=== PATIENT | female | born 1955 | race Caucasian/White ===

== ENCOUNTER 2016-04-23 09:34 | Inpatient (IN) | payer OTHER ==
[2016-04-23] VITALS (9 sets, daily range): BP systolic 133–173; BP diastolic 67–99; PULSE 61–88; RESP 16–18; TEMP 96.3–97.3; O2SAT 96–99
[~2016-04-23] VITALS: Ht 160 cm; Wt 58.1 kg
[2016-04-23] MEDS ORDERED: PROPARACAINE HCL 0.5% OPHT SOLN 15 ML BTL EACH EYE ONE (10:00)
[2016-04-23] MEDS ORDERED: SODIUM CHLORIDE 0.9% FLUSH 5 ML FLUSH IVF PRN ×2 (10:45→14:45)
[2016-04-23 11:08] LABS: APTT (PATIENT) 25.9 SEC (24.3-30.1); INTERNATIONAL NORMALIZED RATIO 0.9 RATIO; PROTHROMBIN TIME - PATIENT 10.3 SEC (9.8-11.6)
[2016-04-23 11:09] LABS: AUTOMATED NEUTROPHIL # 8.7 TH/MM3 (1.8-7.7); BASOPHIL % 0.4 % (0.0-2.0); EOSINOPHIL % 0.3 % (0.0-4.0); HEMATOCRIT 46.1 % (35.0-46.0); HEMO FLAGS DIFF FINAL; LYMPHOCYTE # 1.6 TH/MM3 (1.0-4.8); MEAN CELL VOLUME 88.3 FL (80.0-100.0); MEAN CORPUSCULAR HEMOGLOBIN 29.7 PG (27.0-34.0); MEAN CORPUSCULAR HGB CONC 33.6 % (32.0-36.0); MONO % 3.4 % (0.0-8.0); NEUT % 80.9 % (16.0-70.0); PLATELET COUNT 330 TH/MM3 (150-450); RED BLOOD COUNT 5.22 MIL/MM3 (4.00-5.30); RED CELL DISTRIBUTION WIDTH 13.4 % (11.6-17.2); WHITE BLOOD COUNT 10.7 TH/MM3 (4.0-11.0)
--- NOTE | 2016-04-23 11:13 | PD ---
HPI Chief Complaint: Neuro Symptoms/ Deficits Time Seen by Provider: 10:23 Travel History International Travel<30 days: No Contact w/Intl Traveler<30days: No Traveled to known affect area: No History of Present Illness HPI Patient is a 60-year-old female presents emergency department with complaint of left visual changes. Patient states that one week ago she had a 5-8 minute spell of complete vision loss in the left eye. This started suddenly, as though somebody had "turned off the lights" in her left eye. Over the course of 5-8 minutes the vision slowly improved. This was completely painless. In the interim she has been symptom-free until waking up this morning with similar symptoms. Upon waking this morning she only had symptoms for 2-3 minutes before resolution. She denies any history of visual problems other than having to wear glasses. Last ophthalmologic exam was approximate 1 year ago and she denies any known history of retinal disease. She does note a strong family history of cerebrovascular disease and CVA. She has not had any other neurologic symptoms, numbness or tingling, weakness, word finding difficulty, etc. No flashers or floaters. When vision is gone it is completely gone in that eye without any curtain-type affect. PFSH Past Medical History Medical History: Denies Significant Hx Diminished Hearing: No ?: Not Tubal Ligation: Yes Past Surgical History Gynecologic Surgery: Yes Tonsillectomy: Yes Social History Alcohol Use: No Tobacco Use: No Substance Use: No Allergies-Medications (Allergen,Severity, Reaction): Coded Allergies: Codeine (Verified Adverse Reaction, Severe, Nausea/Vomiting, 04/23/16) Reported Meds & Prescriptions Reported Meds & Active Scripts Active No Active Prescriptions or Reported Medications Review of Systems Except as stated in HPI: all other systems reviewed are Neg Physical Exam Narrative GENERAL: Well-appearing female in no acute distress SKIN: Warm and dry. HEAD: Normocephalic. EYES: Pupils equal and round. Extraocular movements intact. No afferent pupillary defect. Intraocular pressure 17 in the right, 16 on the left. Visual acuity 20/25 bilaterally. No scleral icterus. No injection or drainage. Retinal examination is limited due to lack of pupillary dilatation but there is no obvious retinal pathology, wright-red spot, vein occlusion. No visual field loss. ENT: No nasal bleeding or discharge. Mucous membranes pink and moist. NECK: Trachea midline. No JVD. CARDIOVASCULAR: Regular rate and rhythm. No murmur appreciated. RESPIRATORY: No accessory muscle use. Clear to auscultation. Breath sounds equal bilaterally. GASTROINTESTINAL: Abdomen soft, non-tender, nondistended MUSCULOSKELETAL: No obvious deformities. o edema. NEUROLOGICAL: Awake and alert. Answers questions and follows commands appropriately. No obvious cranial nerve deficits. Motor grossly within normal limits. Normal speech. PSYCHIATRIC: Appropriate mood and affect; insight and judgment normal. Data Data Last Documented VS Vital Signs Date Time Temp Pulse Resp B/P Pulse Ox O2 Delivery O2 Flow Rate FiO2 04/23/16 10:57 97 Nasal Cannula 2 04/23/16 09:38 97.3 88 16 173/99 Orders Proparacaine 0.5% Opth Soln (Alcaine 0.5 (04/23/16 10:00) Electrocardiogram (04/23/16 10:36) Prothrombin Time / Inr (Pt) (04/23/16 10:36) Act Partial Throm Time (Ptt) (04/23/16 10:36) Complete Blood Count With Diff (04/23/16 10:36) Basic Metabolic Panel (Bmp) (04/23/16 10:36) Ecg Monitoring (04/23/16 10:36) Iv Access Insert/Monitor (04/23/16 10:36) Oximetry (04/23/16 10:36) Sodium Chloride 0.9% Flush (Ns Flush) (04/23/16 10:45) Mri Brain W/O Contrast (04/23/16 ) Mra Brain W/O Contrast (Cow) (04/23/16 ) Mra Carotids W Contrast (04/23/16 ) Consult Neurology (04/23/16 ) Aspirin (Aspirin) (04/23/16 12:45) Gadodiamide Pf Inj (Omniscan Pf Inj) (04/23/16 12:49) Labs Laboratory Tests Test 04/23/16 10:45 White Blood Count 10.7 TH/MM3 Red Blood Count 5.22 MIL/MM3 Hemoglobin 15.5 GM/DL Hematocrit 46.1 % Mean Corpuscular Volume 88.3 FL Mean Corpuscular Hemoglobin 29.7 PG Mean Corpuscular Hemoglobin 33.6 % Concent Red Cell Distribution Width 13.4 % Platelet Count 330 TH/MM3 Mean Platelet Volume 7.4 FL Neutrophils (%) (Auto) 80.9 % Lymphocytes (%) (Auto) 15.0 % Monocytes (%) (Auto) 3.4 % Eosinophils (%) (Auto) 0.3 % Basophils (%) (Auto) 0.4 % Neutrophils # (Auto) 8.7 TH/MM3 Lymphocytes # (Auto) 1.6 TH/MM3 Monocytes # (Auto) 0.4 TH/MM3 Eosinophils # (Auto) 0.0 TH/MM3 Basophils # (Auto) 0.0 TH/MM3 CBC Comment DIFF FINAL Differential Comment Prothrombin Time 10.3 SEC Prothromb Time International 0.9 RATIO Ratio Activated Partial 25.9 SEC Thromboplast Time Sodium Level 141 MEQ/L Potassium Level 3.9 MEQ/L Chloride Level 107 MEQ/L Carbon Dioxide Level 23.9 MEQ/L Anion Gap 10 MEQ/L Blood Urea Nitrogen 12 MG/DL Creatinine 0.72 MG/DL Estimat Glomerular Filtration 83 ML/MIN Rate Random Glucose 109 MG/DL Calcium Level 9.4 MG/DL [facility] Medical Decision Making Medical Screen Exam Complete: Yes Emergency Medical Condition: Yes Medical Record Reviewed: Yes Differential Diagnosis 60-year-old female with history of strong family history of several vascular disease here with complaint of left ocular problem, painless loss of vision intermittently. Differential includes ocular TIA, CVA, central retinal artery occlusion, central retinal vein occlusion and less likely glaucoma, retinal detachment. Narrative Course Patient placed on monitor, IV established and blood obtained. A twelve-lead EKG shows sinus bradycardia, rate [address] or T-wave abnormalities and normal intervals. CBC, BMP, coags obtained and unremarkable. MRI and MRA of the brain and MRA of the carotids unfortunately showed left occipital lobe infarct that is acute in nature. Chemistry shows a basilar artery proximally otherwise unremarkable. I spoke with Dr. Gage of neurology, recommend admission for further management. Patient was given aspirin. Patient was last seen normal yesterday prior to falling asleep. Certainly outside the window for thrombolytics. Critical Care Narrative Aggregate critical care time was 35 minutes. Time to perform other separately billable procedures was not included in the critical care time. My time did not include minutes spent treating any other patients simultaneously or on activities that did not directly contribute to the patient's treatment. The services I provided to this patient were to treat and/or prevent clinically significant deterioration that could result in: Neurologic decompensation, , disability I provided critical care services requiring my management, as noted below: Chart data review, documentation time, medication orders and management, vital sign assessments/reviewing monitor data, ordering and reviewing lab tests, ordering and interpreting/reviewing x-rays and diagnostic studies, care of the patient and discussion of the patient with the admitting physicians. Diagnosis Primary Impression: CVA (cerebral vascular accident) Additional Impression: Transient visual loss, left eye Admitting Information Admitting Physician Requests: Admit Scripts No Active Prescriptions or Reported Meds Starla Mcknight MD Apr 23, 2016 11:12
[2016-04-23 11:31] LABS: BICARBONATE 23.9 MEQ/L (21.0-32.0); POTASSIUM 3.9 MEQ/L (3.5-5.1)
--- NOTE | 2016-04-23 12:28 | RADRPT ---
EXAM DATE/TIME: 04/23/2016 12:05 [facility] COMPARISON: CT BRAIN W/O CONTRAST, October 25, 2015, 15:18. INDICATIONS : CVA. Vision changes in left eye. MEDICAL HISTORY : None. SURGICAL HISTORY : Tonsillectomy. Tubal ligation. ENCOUNTER: Initial ACUITY: 1 day PAIN SCORE: 0/10 LOCATION: head. Please note a normal MRA of the brain does not entirely exclude the possibility of a small aneurysm, nor the possibility of distal intracranial vessel disease. TECHNIQUE: 3D time of flight MRA was performed. Source images, multiplanar STS MIP, and 3D volume MIP reconstru ctions were reviewed. FINDINGS: There is excellent visualization of the major intracranial arteries out to the second-order branch ve ssels. There is no evidence for aneurysm, vessel truncation or stenosis, and no evidence for vascula r malformation. 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 Hypoplastic A 1 division of the left anterior cerebral artery. CONCLUSION: 1. Fenestration of the basilar artery proximally otherwise unremarkable. Mayo Zeng MD on April 23, 2016 at 12:25 Board Certified Radiologist. This report was verified electronically.
--- NOTE | 2016-04-23 12:40 | RADRPT ---
EXAM DATE/TIME: 04/23/2016 12:05 [facility] COMPARISON: No previous studies available for comparison. INDICATIONS : CVA. Vision changes in left eye. MEDICAL HISTORY : None. SURGICAL HISTORY : Tonsillectomy. Tubal ligation. ENCOUNTER: Initial ACUITY: 1 day PAIN SCORE: 0/10 LOCATION: head. TECHNIQUE: Multiplanar, multisequence MRI of the brain was performed without contrast. FINDINGS: There is restricted diffusion in the left occipital cortex character characteristic of acute infarct. No hemorrhage is seen. There is mild corresponding increased flair signal present. No masses are see n. CONCLUSION: 1. Left occipital infarct. In appearance. Mayo Zeng MD on April 23, 2016 at 12:37 Board Certified Radiologist. This report was verified electronically.
[2016-04-23] MEDS ORDERED: ASPIRIN 325 MG TAB PO ONE (12:45)
[2016-04-23] MEDS ORDERED: GADODIAMIDE PF 287 MG/ML 20 ML VIAL (for RAD MRI) IV ONE (12:49)
--- NOTE | 2016-04-23 13:11 | RADRPT ---
EXAM DATE/TIME: 04/23/2016 12:05 [facility] COMPARISON: MRI BRAIN W/O CONTRAST, April 23, 2016, 12:05. MRA BRAIN W/O CONTRAST, April 23, 2016, 12:05. INDICATIONS : Stenosis. Vision changes in left eye. CONTRAST: 20 cc Omniscan (gadodiamide) IV MEDICAL HISTORY : None. SURGICAL HISTORY : Tonsillectomy. Tubal ligation. ENCOUNTER: Initial ACUITY: 1 day PAIN SCORE: 0/10 LOCATION: neck. Percent stenosis is calculated using the diameter of the stenotic region over the diameter of the nor mal distal internal carotid artery. TECHNIQUE: Bolus infused MRA of the extracranial circulation was performed using a neurovascular coil. Post pro cessing was performed including rotationg subvolume maximum intensity projections of each carotid art juliane, rotating full volume maximum intensity projections of both carotid arteries, sagittal and briseno l sliding thin slab reformations of each carotid artery, and left oblique sliding thin slab reformati on through the aortic arch to include the origin of the arch branch vessels. FINDINGS: AORTIC ARCH: There is a three vessel origin of the great vessels from the aorta. No evidence of ostial narrowing. RIGHT CAROTID: The common carotid artery is intact. The carotid bulb has a normal configuration without ulceration or narrowing. The internal carotid artery lumen is smooth without stenosis. The external carotid ar greg is intact. LEFT CAROTID: The common carotid artery is intact. There is a focal 5.7 mm severe stenosis of the left proximal int ernal carotid artery extending just under 6 mm in cephalocaudal extent. The remainder of the internal carotid artery is well opacified. This is felt to be at least 60% but difficult to measure an accura te stenosis. The external carotid artery is intact. VERTEBRALS: The vertebral arteries have a symmetric diameter. No stenotic lesions are seen. CONCLUSION: Severe left proximal ICA stenosis. Mayo Zeng MD on April 23, 2016 at 13:06 Board Certified Radiologist. This report was verified electronically.
--- NOTE | 2016-04-23 13:36 | EKG ---
Date Performed: 04/23/2016 Time Performed: 10:52:52 PTAGE: 60 years EKG: SINUS BRADYCARDIA Since previous tracing, no significant change noted BORDERLINE ECG PREVIOUS TRACING : 10/25/2015 14.38 DOCTOR: Nirali Menjivar Interpretating Date/Time 04/23/2016 13:32:04
[2016-04-23] MEDS ORDERED: DEXTROSE 50% IN WATER 50 ML VIAL(D50) IV PUSH PRN (14:45)
[2016-04-23] MEDS ORDERED: ENALAPRILAT 1.25 MG/ML VIAL IV PRN (14:45)
[2016-04-23] MEDS ORDERED: GLUCAGON 1 MG/ML VIAL IM/SQ PRN (14:45)
--- NOTE | 2016-04-23 14:54 | HHI.HP ---
[facility] Primary Care Physician No Primary Care Physician Admission Diagnosis L occipital infarct Diagnoses: Chief Complaint: Vission loss in left eye Travel History International Travel<30 Days: No Contact w/Intl Traveler <30 Da: No Traveled to Known Affected Are: No History of Present Illness This is a 60-year-old female without significant past medical history who does not follow up with physicians and presents with left visual changes. The patient states that symptoms started approximately one week ago on [employer] when she had a sudden episode of left-sided vision loss which lasted for approximately 10 minutes and completely resolved by itself. The patient states that she minimized her symptoms and did not seek any help at this time. The patient denies any other symptoms like palpitations, dizziness, arm or leg weakness, sensory deficits. The patient states that she presented today because she woke up with similar symptoms again with complete left eye loss of vision which resolved (3 minutes of waking up. The patient denies any symptoms like chest pain, shortness of breath, dizziness, palpitations, numbness or tingling of extremities, upper and lower extremity weakness. Patient also denies any cough, dysuria, abdominal pain. Review of Systems Other As per history of present illness, other systems reviewed by me and negative Past Family Social History Past Medical History Denies hypertension, diabetes Past Surgical History 1. Tonsillectomy. 2. Tubal ligation Reported Medications Aspirin. Allergies: Coded Allergies: Codeine (Verified Adverse Reaction, Severe, Nausea/Vomiting, 04/23/16) Active Ordered Medications Current Medications Medications (Trade) Dose Ordered Sig/Adrien Route Start Time Stop Time Status Last Admin (NS Flush) 2 ml UNSCH PRN IVF 04/23/16 10:45 Family History Patient has a family history for positive for strokes. Patient states her grandmother had strokes. Social History The patient is a former smoker. She quit 40 years ago. The patient also states that she quit drinking alcohol 3 years ago. The patient denies illicit drug use. The patient is . The patient has a daughter and a son. The patient's daughter lives here in [place] and his son is [place] during his service. Physical Exam Vital Signs Vital Signs Date Time Temp Pulse Resp B/P Pulse Ox O2 Delivery O2 Flow Rate FiO2 04/23/16 13:45 80 18 151/90 97 Nasal Cannula 2 04/23/16 12:57 88 18 160/83 97 Nasal Cannula 2 04/23/16 10:57 97 Nasal Cannula 2 04/23/16 09:38 97.3 88 16 173/99 96 Room Air Physical Exam GENERAL: This is a well-nourished, well-developed patient, in no apparent distress. SKIN: No rashes, ecchymoses or lesions. Cool and dry. HEAD: Atraumatic. Normocephalic. No temporal or scalp tenderness. EYES: Pupils equal round and reactive. Extraocular motions intact. No scleral icterus. No injection or drainage. ENT: Nose without bleeding, purulent drainage or septal hematoma. Throat without erythema, tonsillar hypertrophy or exudate. Uvula midline. Airway patent. NECK: Trachea midline. No JVD or lymphadenopathy. Supple, nontender, no meningeal signs. CARDIOVASCULAR: Regular rate and rhythm without murmurs, gallops, or rubs. RESPIRATORY: Clear to auscultation. Breath sounds equal bilaterally. No wheezes , rales, or rhonchi. GASTROINTESTINAL: Abdomen soft, non-tender, nondistended. No hepato-splenomegaly , or palpable masses. No guarding. MUSCULOSKELETAL: Extremities without clubbing, cyanosis, or edema. No joint tenderness, effusion, or edema noted. No calf tenderness. Negative Homans sign bilaterally. NEUROLOGICAL: Awake and alert. Cranial nerves II through XII intact. Motor and sensory grossly within normal limits. Five out of 5 muscle strength in all muscle groups. Normal speech. Laboratory Laboratory Tests Test 04/23/16 10:45 White Blood Count 10.7 Red Blood Count 5.22 Hemoglobin 15.5 Hematocrit 46.1 Mean Corpuscular Volume 88.3 Mean Corpuscular Hemoglobin 29.7 Mean Corpuscular Hemoglobin 33.6 Concent Red Cell Distribution Width 13.4 Platelet Count 330 Mean Platelet Volume 7.4 Neutrophils (%) (Auto) 80.9 Lymphocytes (%) (Auto) 15.0 Monocytes (%) (Auto) 3.4 Eosinophils (%) (Auto) 0.3 Basophils (%) (Auto) 0.4 Neutrophils # (Auto) 8.7 Lymphocytes # (Auto) 1.6 Monocytes # (Auto) 0.4 Eosinophils # (Auto) 0.0 Basophils # (Auto) 0.0 CBC Comment DIFF FINAL Differential Comment Prothrombin Time 10.3 Prothromb Time International 0.9 Ratio Activated Partial 25.9 Thromboplast Time Sodium Level 141 Potassium Level 3.9 Chloride Level 107 Carbon Dioxide Level 23.9 Anion Gap 10 Blood Urea Nitrogen 12 Creatinine 0.72 Estimat Glomerular Filtration 83 Rate Random Glucose 109 Calcium Level 9.4 Result Diagram: 04/23/16 1045 04/23/16 1045 Imaging Last Impressions Neck Magnetic Resonance Angiography 04/23/16 0000 Signed Impressions: Service Date/Time: Saturday, April 23, 2016 12:05 - CONCLUSION: Severe left proximal ICA stenosis. Mayo Zeng MD Head Magnetic Resonance Angiography 04/23/16 0000 Signed Impressions: Service Date/Time: Saturday, April 23, 2016 12:05 - CONCLUSION: 1. Fenestration of the basilar artery proximally otherwise unremarkable. Mayo Zeng MD Brain MRI 04/23/16 0000 Signed Impressions: Service Date/Time: Saturday, April 23, 2016 12:05 - CONCLUSION: 1. Left occipital infarct. In appearance. Mayo Zeng MD Reviewed by me. EKG shows sinus bradycardia at [address] T changes suggestive of active ischemia. Assessment and Plan Problem List: (1) CVA (cerebral vascular accident) ICD Code: I63.9 Status: Acute (2) Transient visual loss, left eye ICD Code: H53.122 Status: Acute (3) Carotid stenosis ICD Code: I65.29 Status: Acute Assessment and Plan 60-year-old female sent with symptoms of amaurosis fugax. MRI of the brain shows left occipital ischemic infarct. MRA of the neck shows left carotid severe stenosis. MRA of the brain is normal. Admit the patient to the medical floor, continue aspirin, start on statin Consult neurology, case discussed with Dr. Ceron Consult vascular surgery, case discussed with Dr. Morton, will obtain a CTA of the neck The left ICA stenosis does not fully explain the left occipital ischemic CVA. Check 2-D echocardiogram Check hemoglobin A1c and lipid profile Permissive hypertension. PT, ST, heart healthy diet PPI for Gi prophylaxis Heparin SQ for DVT prophylaxis Code Status Full code Discussed Condition With Patient, Dr. Fatima, Dr. Cornelius, Dr. Morton. Physician Certification 2 Midnight Certification Type: Admission for Inpatient Services Order for Inpatient Services The services are ordered in accordance with Medicare regulations or non- Medicare payer requirements, as applicable. In the case of services not specified as inpatient-only, they are appropriately provided as inpatient services in accordance with the 2-midnight benchmark. Estimated LOS (days): 2 days is the estimated time the patient will need to remain in the hospital, assuming treatment plan goals are met and no additional complications. Post-Hospital Plan: Home Problem Qualifiers (1) CVA (cerebral vascular accident): Jeison Parkinson MD Apr 23, 2016 14:54
[2016-04-23] MEDS ORDERED: IOHEXOL 350 MG/ML 10 ML VIAL (for RAD DIAG) IV ONE (15:21)
--- NOTE | 2016-04-23 15:51 | RADRPT ---
EXAM DATE/TIME: 04/23/2016 15:21 [facility] COMPARISON: No previous studies available for comparison. INDICATIONS : Visual changes; possible occipital occlusion. IV CONTRAST: 100 cc Omnipaque 350 (iohexol) IV RADIATION DOSE: 24.94 CTDIvol (mGy) MEDICAL HISTORY : None SURGICAL HISTORY : Tonsillectomy. ENCOUNTER: Initial ACUITY: 1 day PAIN SCALE: 2/10 LOCATION: neck TECHNIQUE: Volumetric scanning was performed using a multirow detector CT scanner. The data was post processed with a variety of visualization algorithms including full-volume maximum intensity projection, multip lanar sliding thin-slab reformation, curved-planar reformation, and surface-rendering techniques. Us ing automated exposure control and adjustment of the mA and/or kV according to patient size, radiatio n dose was kept as low as reasonably achievable to obtain optimal diagnostic quality images. FINDINGS: AORTIC ARCH: There is a three-vessel origin of the great vessels from the aorta. No evidence of ostial narrowing. RIGHT CAROTID: The common carotid artery is intact. The carotid bulb has a normal configuration without ulceration o r narrowing. The internal carotid artery lumen is smooth without stenosis. The external carotid rafael ry is intact. LEFT CAROTID: The left common carotid artery is normal. There is focally dense atherosclerotic calcification of the bulb and proximal internal carotid artery with high-grade stenosis of the ICA over a 12 mm length. T here is fairly good reconstitution of the vessel distally. VERTEBRALS: The vertebral arteries have a symmetric diameter. No stenotic lesions are seen. CONCLUSION: 1. 12 mm long high grade, hemodynamically significant stenosis of the proximal left internal carotid artery. 2. Patent right carotid system. 3. Vertebrals within normal limits. Molina Salinas MD on April 23, 2016 at 15:47 Board Certified Radiologist. This report was verified electronically.
[2016-04-23] MEDS: INSULIN ASPART SUPPLEMENTAL SCALE SQ SCH ×2 (16:00→21:00)
[2016-04-23] MEDS: HEPARIN SODIUM - SQ 10,000 UNITS/ML VIAL SQ SCH (16:19)
--- NOTE | 2016-04-23 19:14 | MB ---
cc: YADIRA BARCLAY MD DATE OF CONSULTATION 04/23/2016 REASON FOR CONSULTATION Sudden loss of vision in the left eye. HISTORY OF PRESENT ILLNESS This is a 60-year-old female without significant past medical history and presents to the emergency room with left eye symptoms. The patient states that she had an episode last week on [employer] when she had sudden loss of visual field while she was driving that lasted approximately 10 minutes and completely resolved by itself and she describes it as "healed from within the center of the eye". She did not seek any medical help at that time. Today the patient states that she had an episode where she also lost vision on her left eye but this was cleared gradually "like a curtain from up going down over a few minutes". She denies any history of high blood pressure, diabetes, any headache, double vision, facial numbness, slurred speech, weakness of an extremity, or loss of consciousness. REVIEW OF SYSTEMS A 12-point review of systems is negative for what is stated in the HPI. PAST MEDICAL HISTORY Denies hypertension, diabetes. Noncontributory. PAST SURGICAL HISTORY 1. Tonsillectomy. 2. Tubal ligation. MEDICATIONS Aspirin. ALLERGIES CODEINE. FAMILY HISTORY Her grandmother had a stroke. SOCIAL HISTORY A former smoker. She quit 40 years ago. She quit drinking alcohol 3 years ago. Denies use of recreational drug. PHYSICAL EXAMINATION GENERAL: Well-nourished, well-developed in no apparent distress. Good historian. HEENT: Atraumatic, normocephalic. Intact vision, intact hearing. NECK: No carotid bruits. Supple. No meningeal signs. CARDIOVASCULAR: Regular rate and rhythm. No murmurs. LUNGS: Clear to auscultation. No wheezes. MUSCULOSKELETAL: The extremities without clubbing or cyanosis. Moves all extremities equally. NEUROLOGICAL: Awake, alert, oriented to time, person and place. Cranial nerves II-XII are intact. Normal visual gautam. Motor system 5/5 bilateral, symmetrical. Sensory system is intact to touch and temperature, bilateral, symmetrical. Reflexes are 2+ bilateral, symmetrical. Plantars are bilaterally downgoing. Intact memory. Intact speech. Intact speech content. Cerebellar functions, [id number], [id number] are intact. LABORATORY DATA White blood cells 10.7, hemoglobin 15.5, MCV 88.3, platelet count 330. INR 0.9. Sodium 141, potassium 3.9, chloride 107, anion gap 10, BUN 12, creatinine 0.72 random glucose 109, calcium 9.4. IMAGING - Brain MRI without contrast revealed a left occipital infarct. 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 - Neck MRA with contrast revealed severe left proximal ICA stenosis. DIAGNOSTIC IMPRESSION 1. Amaurosis fugax / Transient ischemic attack. 2. Left occipital ischemic infarct. 3. Possible etiology of the amaurosis fugax is left ICA symptomatic artery. PLAN 1. Aspirin 325 mg daily. 2. Neurological checks q.4h. 3. Cervical spine CTA. 4. Telemetry. 5. Cardiac echo. 6. DVT prophylaxis. 7. GI prophylaxis. 8. Allow permissive hypertension. Treat for blood pressure greater than 220/110. Thank you for the opportunity to participate in the care of your patient. MD JUSTO Lopes/MIROSLAVA /3:16 PM /6:51 PM JOSSUE
--- NOTE | 2016-04-23 19:29 | RADRPT ---
EXAM DATE/TIME: 04/23/2016 17:37 [facility] COMPARISON: No previous studies available for comparison. INDICATIONS : Transient ischemic attack. MEDICAL HISTORY : Visual disturbance. SURGICAL HISTORY : Tubal ligation. Tonsillectomy. ENCOUNTER: Initial ACUITY: 1 day PAIN SCORE: 0/10 LOCATION: Bilateral neck PEAK SYSTOLIC VELOCITIES (cm/sec): ICA/CCA RATIO: Right: 1.2 Left: 5.9 ICA: Right: 102 Left: 333 CCA: Right: 82 Left: 57 ECA: Right: 69 Left: 75 VERTEBRAL: Right: 53 antegrade Left: 81 antegrade Elevated flow velocities and ICA/CCA ratios have been found to correlate with increased degrees of vessel stenosis, calculated as percentage of diameter relative to a normal segment of distal ICA/CCA FINDINGS: RIGHT CAROTID: There is mild plaque of the bulb and proximal internal carotid artery. LEFT CAROTID: There is bulky plaque of the bulb and proximal internal carotid artery. VERTEBRAL ARTERIES: Antegrade flow is seen in both vertebral arteries. MISCELLANEOUS: None. CONCLUSION: 1. High-grade, hemodynamically significant stenosis of the proximal left internal carotid artery. 2. Mild plaque of the right carotid bifurcation without hemodynamically significant narrowing. Molina Salinas MD on April 23, 2016 at 19:26 Board Certified Radiologist. This report was verified electronically.
[2016-04-23] MEDS: PRAVASTATIN SOD 40 MG TAB PO SCH (21:00)
[2016-04-23] MEDS: SODIUM CHLORIDE 0.9% FLUSH 5 ML FLUSH IVF SCH (21:29)
[2016-04-24 04:00] VITALS: BP 119/76; PULSE 74; RESP 18; TEMP 96.4; O2SAT 98
[2016-04-24] MEDS: INSULIN ASPART SUPPLEMENTAL SCALE SQ SCH ×4 (07:00→20:43)
[2016-04-24 08:00] VITALS: BP 153/91; PULSE 88; RESP 18; TEMP 96.8; O2SAT 98
[2016-04-24 08:10] LABS: HDL CHOLESTEROL 62.4 MG/DL (40.0-60.0)
--- NOTE | 2016-04-24 10:05 | PD.VS.CON ---
History of Present Illness Chief Complaint: Hx of two episodes of left eye total vision loss that resolved within thirty minutes. Apr 15 and Apr 23, 2015. Consult Requested by: Jeison Yeboah History of Present Illness 60 year old female with no known hx of medical illness presented with a hx of left eye visual loss about a week ago that resolved with a showering reappearance of vision. She toke aspirin over the course of the week and since she didn't have insurance failed to see a physician. She then woke up with visual loss on Apr 23 that resolved with a raising of the shades appearance. She denies aphasia, weakness of either side of her body, chest pain or shortness of breath. Occasionally, cramping of calves. Past/Family/Social History Past Medical History Hx of syncopal episode in October of 2015. Past Surgical History tonsillectomy BSO Social History Quit smoking more than 10 years ago. Second hand smoke for 40 years. Denies alcohol or drug abuse. Family History Mother with a hx of CVA Home Medications No Active Prescriptions or Reported Meds Coded Allergies: Codeine (Verified Adverse Reaction, Severe, Nausea/Vomiting, 04/23/16) Review of Systems Eyes: COMPLAINS OF: Vision loss Musculoskeletal: COMPLAINS OF: Joint pain (leg pain left>right) Physical Exam Vitals/I&O Date Time Temp Pulse Resp B/P Pulse Ox O2 Delivery O2 Flow Rate FiO2 04/24/16 04:00 96.4 74 18 119/76 98 04/23/16 22:00 96.3 61 17 143/87 96 04/23/16 19:30 98 04/23/16 19:09 70 16 133/89 97 Room Air 04/23/16 18:34 77 18 159/67 99 Room Air 04/23/16 15:06 76 18 143/93 97 Nasal Cannula 2 04/23/16 13:45 80 18 151/90 97 Nasal Cannula 2 04/23/16 12:57 88 18 160/83 97 Nasal Cannula 2 04/23/16 10:57 97 Nasal Cannula 2 Neuro: Cn2-12 intact. 5/5 motor upper and lower extremity. Neck: left carotid bruit. Heart: no murmurs, regular r/r Lungs: CTA bilaterally Abdomen: soft, no abdominal thrill, pulsatile mass Vascular: palpable radial bilaterally Triphasic bilateral PT and monophasic DP Extremities: warm with less than 2 second cap refill. Laboratory Tests Test 04/23/16 04/24/16 10:45 06:54 White Blood Count 10.7 Red Blood Count 5.22 Hemoglobin 15.5 Hematocrit 46.1 Mean Corpuscular Volume 88.3 Mean Corpuscular Hemoglobin 29.7 Mean Corpuscular Hemoglobin 33.6 Concent Red Cell Distribution Width 13.4 Platelet Count 330 Mean Platelet Volume 7.4 Neutrophils (%) (Auto) 80.9 Lymphocytes (%) (Auto) 15.0 Monocytes (%) (Auto) 3.4 Eosinophils (%) (Auto) 0.3 Basophils (%) (Auto) 0.4 Neutrophils # (Auto) 8.7 Lymphocytes # (Auto) 1.6 Monocytes # (Auto) 0.4 Eosinophils # (Auto) 0.0 Basophils # (Auto) 0.0 CBC Comment DIFF FINAL Differential Comment Prothrombin Time 10.3 Prothromb Time International 0.9 Ratio Activated Partial 25.9 Thromboplast Time Sodium Level 141 Potassium Level 3.9 Chloride Level 107 Carbon Dioxide Level 23.9 Anion Gap 10 Blood Urea Nitrogen 12 Creatinine 0.72 Estimat Glomerular Filtration 83 Rate Random Glucose 109 Calcium Level 9.4 Triglycerides Level 119 Cholesterol Level 269 LDL Cholesterol 183 HDL Cholesterol 62.4 Cholesterol/HDL Ratio 4.31 Last 48 hours Impressions Neck Magnetic Resonance Angiography 04/23/16 0000 Signed Impressions: Service Date/Time: Saturday, April 23, 2016 12:05 - CONCLUSION: Severe left proximal ICA stenosis. Mayo Zeng MD Neck CTA 04/23/16 0000 Signed Impressions: Service Date/Time: Saturday, April 23, 2016 15:21 - CONCLUSION: 1. 12 mm long high grade, hemodynamically significant stenosis of the proximal left internal carotid artery. 2. Patent right carotid system. 3. Vertebrals within normal limits. Molina Salinas MD Head Magnetic Resonance Angiography 04/23/16 0000 Signed Impressions: Service Date/Time: Saturday, April 23, 2016 12:05 - CONCLUSION: 1. Fenestration of the basilar artery proximally otherwise unremarkable. Mayo Zeng MD Carotid Artery Ultrasound 04/23/16 0000 Signed Impressions: Service Date/Time: Saturday, April 23, 2016 17:37 - CONCLUSION: 1. High-grade , hemodynamically significant stenosis of the proximal left internal carotid artery. 2. Mild plaque of the right carotid bifurcation without hemodynamically significant narrowing. Molina Salinas MD Brain MRI 04/23/16 0000 Signed Impressions: Service Date/Time: Saturday, April 23, 2016 12:05 - CONCLUSION: 1. Left occipital infarct. In appearance. Mayo Zeng MD Assessment and Plan Assessment: (1) Transient visual loss, left eye Status: Resolved (2) CVA (cerebral vascular accident) Status: Acute (3) Carotid stenosis Status: Chronic Plan This is a 60 year old female who presented with a left sided posterior circulation CVA. She also has had a hx of left sided visual changes that could be interpreted as possible TIAs that would correlate with her left sided high grade carotid stenosis by CTA, Duplex US and MRA. The location of the posterior circulation stroke and left sided carotid stenosis don't correlate. Since she has had an acute left sided acute CVA she is going to be worked up for a source of this and will managed medically with antiplatelet and a statin for her left ICA stenosis. I will allow for 1-2 weeks before proceeding with surgery (left carotid endarterectomy) unless her clinical condition changes ie. Crescendo TIAs to allow for some resolution of her posterior circulation CVA. In the interim she will have a repeat MRI of the brain and telemetry that I discussed with Dr. Gage, her neurologist. I discussed this plan the patient with the family at the bedside (daughter, sister and arjfzey-me-map). I will continue to follow her closely. Panchito Morton DO FACS [employer] Vascular [employer] /[place] Problem Qualifiers (1) CVA (cerebral vascular accident): (2) Carotid stenosis: Qualified Code: I65.22 - Stenosis of left carotid artery Panchito Morton DO Apr 24, 2016 10:05
[2016-04-24] MEDS: ASPIRIN 325 MG TAB PO SCH (10:13)
[2016-04-24] MEDS: SODIUM CHLORIDE 0.9% FLUSH 5 ML FLUSH IVF SCH ×2 (10:13→20:43)
[2016-04-24] MEDS: HEPARIN SODIUM - SQ 10,000 UNITS/ML VIAL SQ SCH ×3 (10:14→17:21)
[2016-04-24 12:00] VITALS: BP 134/79; PULSE 80; RESP 18; TEMP 96; O2SAT 97
--- NOTE | 2016-04-24 14:05 | HHI.PR ---
Subjective Remarks Patient denies any further left eye vision loss denies dizziness denies neurological complains like headache, double or blurry vision as per RN patient refused insulin coverage when blood sugar reached the 170's Objective Vitals Vital Signs Date Time Temp Pulse Resp B/P Pulse Ox O2 Delivery O2 Flow Rate FiO2 04/24/16 08:00 96.8 88 18 153/91 98 04/24/16 04:00 96.4 74 18 119/76 98 04/23/16 22:00 96.3 61 17 143/87 96 04/23/16 19:30 98 04/23/16 19:09 70 16 133/89 97 Room Air 04/23/16 18:34 77 18 159/67 99 Room Air 04/23/16 15:06 76 18 143/93 97 Nasal Cannula 2 I/O 04/23/16 04/23/16 04/23/16 04/24/16 04/24/16 04/24/16 07:00 15:00 23:00 07:00 15:00 23:00 Intake Total 120 ml 240 ml Balance 120 ml 240 ml Intake Oral 120 ml 240 ml # Voids 1 1 # Bowel Movements 0 1 Result Diagram: 04/23/16 1045 04/23/16 1045 Imaging Last Impressions Neck Magnetic Resonance Angiography 04/23/16 0000 Signed Impressions: Service Date/Time: Saturday, April 23, 2016 12:05 - CONCLUSION: Severe left proximal ICA stenosis. Mayo Zeng MD Neck CTA 04/23/16 0000 Signed Impressions: Service Date/Time: Saturday, April 23, 2016 15:21 - CONCLUSION: 1. 12 mm long high grade, hemodynamically significant stenosis of the proximal left internal carotid artery. 2. Patent right carotid system. 3. Vertebrals within normal limits. Molina Salinas MD Head Magnetic Resonance Angiography 04/23/16 0000 Signed Impressions: Service Date/Time: Saturday, April 23, 2016 12:05 - CONCLUSION: 1. Fenestration of the basilar artery proximally otherwise unremarkable. Mayo Zeng MD Carotid Artery Ultrasound 04/23/16 0000 Signed Impressions: Service Date/Time: Saturday, April 23, 2016 17:37 - CONCLUSION: 1. High-grade , hemodynamically significant stenosis of the proximal left internal carotid artery. 2. Mild plaque of the right carotid bifurcation without hemodynamically significant narrowing. Molina Salinas MD Brain MRI 04/23/16 0000 Signed Impressions: Service Date/Time: Saturday, April 23, 2016 12:05 - CONCLUSION: 1. Left occipital infarct. In appearance. Mayo Zeng MD Objective Remarks GENERAL: This is a well-nourished, well-developed patient, in no apparent distress. SKIN: No rashes, ecchymoses or lesions. Cool and dry. HEAD: Atraumatic. Normocephalic. No temporal or scalp tenderness. EYES: Pupils equal round and reactive. Extraocular motions intact. No scleral icterus. No injection or drainage. ENT: Nose without bleeding, purulent drainage or septal hematoma. Throat without erythema, tonsillar hypertrophy or exudate. Uvula midline. Airway patent. NECK: Trachea midline. No JVD or lymphadenopathy. Supple, nontender, no meningeal signs. CARDIOVASCULAR: Regular rate and rhythm without murmurs, gallops, or rubs. RESPIRATORY: Clear to auscultation. Breath sounds equal bilaterally. No wheezes , rales, or rhonchi. GASTROINTESTINAL: Abdomen soft, non-tender, nondistended. No hepato-splenomegaly , or palpable masses. No guarding. MUSCULOSKELETAL: Extremities without clubbing, cyanosis, or edema. No joint tenderness, effusion, or edema noted. No calf tenderness. Negative Homans sign bilaterally. NEUROLOGICAL: Awake and alert. Cranial nerves II through XII intact. Motor and sensory grossly within normal limits. Five out of 5 muscle strength in all muscle groups. Normal speech. Medications and IVs Current Medications Medications (Trade) Dose Ordered Sig/Adrien Route Start Time Stop Time Status Last Admin (NS Flush) 2 ml BID IVF 04/23/16 21:00 04/24/16 10:13 (NS Flush) 2 ml UNSCH PRN IVF 04/23/16 14:45 (Vasotec Inj) 1.25 mg Q4H PRN IV 04/23/16 14:45 (Aspirin) 325 mg DAILY PO 04/24/16 09:00 04/24/16 10:13 (Pravachol) 40 mg HS PO 04/23/16 21:00 04/23/16 21:00 (D50w (Vial) Inj) 25 ml UNSCH PRN IV PUSH 04/23/16 14:45 (Glucagon Inj) 1 mg UNSCH PRN IM/SQ 04/23/16 14:45 (Heparin Inj) 5,000 units Q8H SQ 04/23/16 16:00 04/24/16 10:14 A/P Problem List: (1) CVA (cerebral vascular accident) ICD Code: I63.9 Status: Acute Plan: And admitted to the medical floor. MRI of the brain showed left occipital ischemic stroke. MRA of the head showed administration of the basilar artery proximally, otherwise unremarkable. MRI of the neck showed severe left proximal ICA stenosis. As change management coordinator surgery consulted, recommended CTA of the neck which showed 12 mL long high-grade, hemodynamically significant stenosis of the proximal left internal carotid artery. Patent right carotid system. Vertebrals within normal limits. Continue aspirin and statin Neurology following Follow-up with echocardiogram which is still pending No events reported on telemetry. (2) Transient visual loss, left eye ICD Code: H53.122 Status: Resolved Plan: Possibly due to TIAs and related to left occipital ischemic stroke. Management as above. (3) Carotid stenosis ICD Code: I65.29 Status: Chronic Plan: Vascular surgery consulted. Neck CTA shows high-grade stenosis. Plan is to perform endarterectomy in 1-2 weeks. (4) Hyperlipidemia ICD Code: E78.5 Status: Acute Plan: Patient had a lipid profile with an elevated total cholesterol of 269, LDL cholesterol of 183, HDL course of Zosyn 2.4, triglycerides 119. Continue statin. (5) Hyperglycemia ICD Code: R73.9 Status: Acute Plan: Patient has had couple blood sugars above 120 with the last one being in the high 170s. The patient refused insulin coverage. Continue necessary with insulin coverage. Hemoglobin A1c pending. Assessment and Plan DVT prophylaxis: Teds, heparin subcutaneous. Discharge Planning Continue to monitor in the medical floor. Problem Qualifiers (1) CVA (cerebral vascular accident): (2) Carotid stenosis: Qualified Code: I65.22 - Stenosis of left carotid artery Jeison Parkinson MD Apr 24, 2016 14:05
[2016-04-24 16:00] VITALS: BP 139/92; PULSE 75; RESP 18; TEMP 96; O2SAT 96
[2016-04-24 17:34] LABS: HEMOGLOBIN A1a 1.3 %; HEMOGLOBIN A1b 1.6 %; HEMOGLOBIN Ao 85.6 %; HEMOGLOBIN LA1C 1.6 %; HEMOGLOBIN P3 3.6 %
[2016-04-24 17:40] VITALS: O2SAT 97
[2016-04-24 20:00] VITALS: BP 123/77; PULSE 83; RESP 16; TEMP 96.2; O2SAT 96
[2016-04-24] MEDS: PRAVASTATIN SOD 40 MG TAB PO SCH (20:43)
--- NOTE | 2016-04-24 21:15 | HHI.PR ---
Review/Management Diagnosis IMAGING - Brain MRI without contrast revealed a left occipital infarct. 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 - Neck MRA with contrast revealed severe left proximal ICA stenosis. DIAGNOSTIC IMPRESSION 1. Amaurosis fugax / Transient ischemic attack. 2. Left occipital ischemic infarct. 3. Possible etiology of the amaurosis fugax is left ICA symptomatic artery. Plan - Aspirin 325 mg daily. - Neurological checks q.4h. - Telemetry. - Cardiac echo result pending - DVT prophylaxis. - GI prophylaxis. - Repeat MRI brain for follow up and prepare for left carotid intervention next week - Vascular surgery on board, recommendations are appreciated Diagnosis/Plan: Subjective Subjective Comments No acute events reported No new complaints Active Medications Current Medications Medications (Trade) Dose Ordered Sig/Adrien Route Start Time Stop Time Status Last Admin (NS Flush) 2 ml BID IVF 04/23/16 21:00 04/24/16 20:43 (NS Flush) 2 ml UNSCH PRN IVF 04/23/16 14:45 (Vasotec Inj) 1.25 mg Q4H PRN IV 04/23/16 14:45 (Aspirin) 325 mg DAILY PO 04/24/16 09:00 04/24/16 10:13 (Pravachol) 40 mg HS PO 04/23/16 21:00 04/24/16 20:43 (D50w (Vial) Inj) 25 ml UNSCH PRN IV PUSH 04/23/16 14:45 (Glucagon Inj) 1 mg UNSCH PRN IM/SQ 04/23/16 14:45 (Heparin Inj) 5,000 units Q8H SQ 04/23/16 16:00 04/24/16 17:21 (Ambien) 5 mg HS PRN PO 04/24/16 20:00 Allergies Allergies Coded Allergies Codeine (Verified Adverse Reaction, Severe, Nausea/Vomiting, 04/23/16) Exam I&O / VS 04/23/16 04/23/16 04/24/16 15:00 23:00 07:00 Intake Total 120 ml 240 ml Balance 120 ml 240 ml Intake Oral 120 ml 240 ml # Voids 1 # Bowel Movements 0 Vital Signs Date Time Temp Pulse Resp B/P Pulse Ox O2 Delivery O2 Flow Rate FiO2 04/24/16 20:56 Room Air 04/24/16 17:40 97 21 04/24/16 16:00 96.0 75 18 139/92 96 04/24/16 12:00 96.0 80 18 134/79 97 04/24/16 08:00 96.8 88 18 153/91 98 04/24/16 04:00 96.4 74 18 119/76 98 04/23/16 22:00 96.3 61 17 143/87 96 Exam Comments GENERAL: Well-nourished, well-developed in no apparent distress. Good historian. HEENT: Atraumatic, normocephalic. Intact vision, intact hearing. NECK: No carotid bruits. Supple. No meningeal signs. CARDIOVASCULAR: Regular rate and rhythm. No murmurs. LUNGS: Clear to auscultation. No wheezes. MUSCULOSKELETAL: The extremities without clubbing or cyanosis. Moves all extremities equally. NEUROLOGICAL: Awake, alert, oriented to time, person and place. Cranial nerves II-XII are intact. Normal visual gautam. Motor system 5/5 bilateral, symmetrical. Sensory system is intact to touch and temperature, bilateral, symmetrical. Reflexes are 2+ bilateral, symmetrical. Plantars are bilaterally downgoing. Intact memory. Intact speech. Intact speech content. Cerebellar functions, [id number], [id number] are intact. Objective Radiology Results Last 72 hours Impressions Neck Magnetic Resonance Angiography 04/23/16 0000 Signed Impressions: Service Date/Time: Saturday, April 23, 2016 12:05 - CONCLUSION: Severe left proximal ICA stenosis. Mayo Zeng MD Neck CTA 04/23/16 0000 Signed Impressions: Service Date/Time: Saturday, April 23, 2016 15:21 - CONCLUSION: 1. 12 mm long high grade, hemodynamically significant stenosis of the proximal left internal carotid artery. 2. Patent right carotid system. 3. Vertebrals within normal limits. Molina Salinas MD Head Magnetic Resonance Angiography 04/23/16 0000 Signed Impressions: Service Date/Time: Saturday, April 23, 2016 12:05 - CONCLUSION: 1. Fenestration of the basilar artery proximally otherwise unremarkable. Mayo Zeng MD Carotid Artery Ultrasound 04/23/16 0000 Signed Impressions: Service Date/Time: Saturday, April 23, 2016 17:37 - CONCLUSION: 1. High-grade , hemodynamically significant stenosis of the proximal left internal carotid artery. 2. Mild plaque of the right carotid bifurcation without hemodynamically significant narrowing. Molina Salinas MD Brain MRI 04/23/16 0000 Signed Impressions: Service Date/Time: Saturday, April 23, 2016 12:05 - CONCLUSION: 1. Left occipital infarct. In appearance. Mayo Zeng MD Micro and Labs Laboratory Tests Test 04/24/16 06:54 Triglycerides Level 119 Cholesterol Level 269 LDL Cholesterol 183 HDL Cholesterol 62.4 Cholesterol/HDL Ratio 4.31 Veda Gage MD Apr 24, 2016 21:15
--- NOTE | 2016-04-24 23:09 | RADRPT ---
EXAM DATE/TIME: 04/24/2016 00:00 [facility] COMPARISON: No previous studies available for comparison. INDICATIONS : LEFT LOWER LEG PAIN TECHNIQUE: Five-station segmental examination of the lower extremities was performed. Pulsed-cuff waveform tracings and pressures were recorded. Ankle-brachial indices and toe-brachial indices were calculated. PRESSURES (mmHg): Brachial (arm): Right 158 Lower Thigh: Right 175 Left 179 Calf: Right 155 Left 174 Ankle: Right 152 Left 163 Toe: Right 52 Left 18 JOSE: Right 0.96 Left 1.03 TBI: Right 0.33 Left 0.11 PULSED CUFF WAVEFORMS: Demonstrate normal amplitude bilaterally. CONCLUSION: ABIs within the normal range. Reduced toe brachial indices bilaterally more pronounced on the left vaughan ggesting microangiopathic disease. Dalton Montes Jr., MD on April 24, 2016 at 23:07 Board Certified Radiologist. This report was verified electronically.
[2016-04-25] VITALS (7 sets, daily range): BP systolic 117–138; BP diastolic 75–88; PULSE 62–85; RESP 16–18; TEMP 95.8–97.4; O2SAT 95–98
[2016-04-25] MEDS: ZOLPIDEM TARTRATE 5 MG TAB PO PRN ×2 (01:15→22:00)
[2016-04-25] MEDS: HEPARIN SODIUM - SQ 10,000 UNITS/ML VIAL SQ SCH ×3 (01:15→17:21)
[2016-04-25] MEDS: INSULIN ASPART SUPPLEMENTAL SCALE SQ SCH ×4 (07:00→21:00)
[2016-04-25] MEDS: SODIUM CHLORIDE 0.9% FLUSH 5 ML FLUSH IVF SCH ×2 (08:22→22:00)
[2016-04-25] MEDS: ASPIRIN 325 MG TAB PO SCH (08:22)
--- NOTE | 2016-04-25 11:56 | PD.VS.PN ---
Subjective Subjective/Hospital Course No TIA symptoms. Cardiac US tech at bedside performing echocardiogram. Objective Vitals/I&O Date Time Temp Pulse Resp B/P Pulse Ox O2 Delivery O2 Flow Rate FiO2 04/25/16 10:15 97 21 04/25/16 08:00 96.4 62 18 131/85 98 04/25/16 04:00 97.4 85 16 133/75 98 04/25/16 01:16 96.6 75 17 117/77 97 04/24/16 20:56 Room Air 04/24/16 20:00 96.2 83 16 123/77 96 04/24/16 17:40 97 21 04/24/16 16:00 96.0 75 18 139/92 96 04/24/16 12:00 96.0 80 18 134/79 97 04/25/16 04/25/16 04/25/16 07:00 15:00 23:00 Intake Total 240 ml Balance 240 ml Assessment and Plan Assessment: (1) Transient visual loss, left eye Status: Resolved (2) CVA (cerebral vascular accident) Status: Acute (3) Carotid stenosis Status: Chronic Plan This is a 60 year old female who presented with a left sided posterior circulation CVA. She also has a left sided high grade carotid stenosis. Plan for left CEA after resolution of CVA. Presently asymptomatic. Will follow up on cardiac evaluation to determine source of posterior circulation CVA. I will continue to follow her closely. Panchito Morton DO FACS [employer] Developer of Vascular Surgery /[place] Problem Qualifiers (1) CVA (cerebral vascular accident): (2) Carotid stenosis: Qualified Code: I65.22 - Stenosis of left carotid artery Panchito Morton DO Apr 25, 2016 11:56
--- NOTE | 2016-04-25 14:30 | HHI.PR ---
Subjective Remarks no further episodes of amaurosis fugax denies any visual symptoms denies any cp/sob denies fevers/chills denies headache denies dizziness Objective Vitals Vital Signs Date Time Temp Pulse Resp B/P Pulse Ox O2 Delivery O2 Flow Rate FiO2 04/25/16 12:00 95.8 68 16 133/81 95 04/25/16 10:15 97 21 04/25/16 08:00 96.4 62 18 131/85 98 04/25/16 04:00 97.4 85 16 133/75 98 04/25/16 01:16 96.6 75 17 117/77 97 04/24/16 20:56 Room Air 04/24/16 20:00 96.2 83 16 123/77 96 04/24/16 17:40 97 21 04/24/16 16:00 96.0 75 18 139/92 96 I/O 04/24/16 04/24/16 04/24/16 04/25/16 04/25/16 04/25/16 07:00 15:00 23:00 07:00 15:00 23:00 Intake Total 240 ml 960 ml 240 ml Balance 240 ml 960 ml 240 ml Intake Oral 240 ml 960 ml 240 ml # Voids 1 3 5 1 # Bowel Movements 0 1 1 0 Result Diagram: 04/23/16 1045 04/23/16 1045 Imaging Last Impressions Neck Magnetic Resonance Angiography 04/23/16 0000 Signed Impressions: Service Date/Time: Saturday, April 23, 2016 12:05 - CONCLUSION: Severe left proximal ICA stenosis. Mayo Zeng MD Neck CTA 04/23/16 0000 Signed Impressions: Service Date/Time: Saturday, April 23, 2016 15:21 - CONCLUSION: 1. 12 mm long high grade, hemodynamically significant stenosis of the proximal left internal carotid artery. 2. Patent right carotid system. 3. Vertebrals within normal limits. Molina Salinas MD Head Magnetic Resonance Angiography 04/23/16 0000 Signed Impressions: Service Date/Time: Saturday, April 23, 2016 12:05 - CONCLUSION: 1. Fenestration of the basilar artery proximally otherwise unremarkable. Mayo Zeng MD Carotid Artery Ultrasound 04/23/16 0000 Signed Impressions: Service Date/Time: Saturday, April 23, 2016 17:37 - CONCLUSION: 1. High-grade , hemodynamically significant stenosis of the proximal left internal carotid artery. 2. Mild plaque of the right carotid bifurcation without hemodynamically significant narrowing. Molina Salinas MD Brain MRI 04/23/16 0000 Signed Impressions: Service Date/Time: Saturday, April 23, 2016 12:05 - CONCLUSION: 1. Left occipital infarct. In appearance. Mayo Zeng MD Objective Remarks GENERAL: This is a well-nourished, well-developed patient, in no apparent distress. SKIN: No rashes, ecchymoses or lesions. Cool and dry. HEAD: Atraumatic. Normocephalic. No temporal or scalp tenderness. EYES: Pupils equal round and reactive. Extraocular motions intact. No scleral icterus. No injection or drainage. ENT: Nose without bleeding, purulent drainage or septal hematoma. Throat without erythema, tonsillar hypertrophy or exudate. Uvula midline. Airway patent. NECK: Trachea midline. No JVD or lymphadenopathy. Supple, nontender, no meningeal signs. CARDIOVASCULAR: Regular rate and rhythm without murmurs, gallops, or rubs. RESPIRATORY: Clear to auscultation. Breath sounds equal bilaterally. No wheezes , rales, or rhonchi. GASTROINTESTINAL: Abdomen soft, non-tender, nondistended. No hepato-splenomegaly , or palpable masses. No guarding. MUSCULOSKELETAL: Extremities without clubbing, cyanosis, or edema. No joint tenderness, effusion, or edema noted. No calf tenderness. Negative Homans sign bilaterally. NEUROLOGICAL: Awake and alert. Cranial nerves II through XII intact. Motor and sensory grossly within normal limits. Five out of 5 muscle strength in all muscle groups. Normal speech. Medications and IVs Current Medications Medications (Trade) Dose Ordered Sig/Adrien Route Start Time Stop Time Status Last Admin (NS Flush) 2 ml BID IVF 04/23/16 21:00 04/25/16 22:00 (NS Flush) 2 ml UNSCH PRN IVF 04/23/16 14:45 (Vasotec Inj) 1.25 mg Q4H PRN IV 04/23/16 14:45 (Aspirin) 325 mg DAILY PO 04/24/16 09:00 04/25/16 08:22 (Pravachol) 40 mg HS PO 04/23/16 21:00 04/25/16 22:00 (D50w (Vial) Inj) 25 ml UNSCH PRN IV PUSH 04/23/16 14:45 (Glucagon Inj) 1 mg UNSCH PRN IM/SQ 04/23/16 14:45 (Heparin Inj) 5,000 units Q8H SQ 04/23/16 16:00 04/26/16 00:27 (Ambien) 5 mg HS PRN PO 04/24/16 20:00 04/25/16 22:00 A/P Problem List: (1) CVA (cerebral vascular accident) ICD Code: I63.9 Status: Acute (2) Transient visual loss, left eye ICD Code: H53.122 Status: Resolved (3) Carotid stenosis ICD Code: I65.29 Status: Chronic (4) Hyperlipidemia ICD Code: E78.5 Status: Acute (5) Hyperglycemia ICD Code: R73.9 Status: Acute (6) Impaired fasting glucose ICD Code: R73.01 Status: Acute Plan: Discussed finding with patient. Explained the importance of lifestyle modification including diet and exercise as well as the adjunctive treatment with metformin. Explained most common side effects and termite exterminator benefit of metformin which includes delaying or avoiding diabetes. Patient will need to be started on metformin upon discahrge and will need to follow with his primary physician. Ordered diabetes education. Assessment and Plan (1) CVA (cerebral vascular accident) Plan: Patient admitted to the medical floor. MRI of the brain showed left occipital ischemic stroke. 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 MRI of the neck showed severe left proximal ICA stenosis. Vascular surgery consulted, recommended CTA of the neck which showed 12 mL long high-grade, hemodynamically significant stenosis of the proximal left internal carotid artery. Patent right carotid system. Vertebrals within normal limits. Continue aspirin and statin Neurology following 2 D echo ----> ef 55 to 60 %, possible PFO. Will check venous extremity dopplers to r/o dvt. Consult cardiology for evaluation for TIFFANY vs 2D ECHO with bubble study No events reported on telemetry. neck CTA confirms high grade stenosis as above - discussed case w Dr Morton from vascular surgery - plan is to repeat MRI and see size of strokes prior to DC. Possibly discharged patient home and have return for carotid endarterectomy after 2 to 3 weeks to decrease the risk of conversion of ischemic stroke into hemorrhagic stroke. (2) Transient visual loss, left eye Plan: Possibly due to TIAs and related to left occipital ischemic stroke. Management as above. (3) Carotid stenosis Plan: Vascular surgery consulted. Neck CTA shows high-grade stenosis. Plan is to perform endarterectomy in 1-2 weeks. (4) Hyperlipidemia Plan: Patient had a lipid profile with an elevated total cholesterol of 269, LDL cholesterol of 183, HDL course of Zosyn 2.4, triglycerides 119. Continue statin. (5) Hyperglycemia Plan: Patient has had couple blood sugars above 120 with the last one being in the high 170s. The patient refused insulin coverage. Continue necessary with insulin coverage. 04/25/16 hemoglobin A1C 5.9 patient has impaired fating glucose tolerance. see above. DVT prophylaxis: Teds, heparin subcutaneous. Discharge Planning Continue to monitor in the medical floor. Problem Qualifiers (1) CVA (cerebral vascular accident): (2) Carotid stenosis: Qualified Code: I65.22 - Stenosis of left carotid artery Jeison Parkinson MD Apr 25, 2016 14:30
--- NOTE | 2016-04-25 19:02 | EC ---
Study Study Date:04/25/2016 STUDY CONCLUSIONS SUMMARY - Left ventricle: Systolic function was normal. The estimated ejection fraction was in the range of 55% to 60%. - Atrial septum: Possible flow noted in diastole from right atrium to left atrium, possible PFO. - Pulmonary arteries: PA peak pressure: 33mm Hg (S). If LV function is below 40, please consider prescribing an ACEI or ARB or document rationale for non-use. PROCEDURE DATA STUDY STATUS: Elective. Procedure: Transthoracic echocardiography. Image quality was good. Scanning was performed from the parasternal, apical, and subcostal acoustic windows. Study completion: The patient tolerated the procedure well. Transthoracic echocardiography. M-mode, complete 2D, complete spectral Doppler, and color Doppler. Patient status: Inpatient. CARDIAC ANATOMY LEFT VENTRICLE: Systolic function was normal. The estimated ejection fraction was in the range of 55% to 60%. AORTIC VALVE: Probably trileaflet. Doppler: There was no stenosis. No significant regurgitation. MITRAL VALVE: The valve appears to be grossly normal. Doppler: There was no evidence for stenosis. Trace regurgitation. Peak gradient: 3mm Hg (D). LEFT ATRIUM: The atrium was normal in size. ATRIAL SEPTUM: Possible flow noted in diastole from right atrium to left atrium, possible PFO. PULMONIC VALVE: Not well visualized. Doppler: There was no evidence for stenosis. No significant regurgitation. TRICUSPID VALVE: The valve appears to be grossly normal. Doppler: There was no evidence for stenosis. Trace to mild regurgitation. BASIC MEASUREMENTS ADULT Normal Left ventricle LV internal dimension, ED, chordal level, *40.1 mm 43-52 PLAX LV posterior wall thickness, ED 7.34 mm IVS/LVPW ratio, ED *1.55 <1.3 Ventricular septum Septal thickness, ED 11.4 mm Left atrium Anterior-posterior dimension 21 mm Right ventricle RV internal dimension, ED, PLAX 24.1 mm 19-38 DOPPLER MEASUREMENTS ADULT Normal Main pulmonary artery Pressure, S *33 mm Hg =30 Mitral valve Peak E-wave velocity 86.4 cm/s Peak A-wave velocity 80.5 cm/s Peak gradient, D 3 mm Hg Peak E/A ratio 1.1 Tricuspid valve Regurgitant peak velocity 183 cm/s Peak RV-RA gradient, S 13 mm Hg Maximal regurgitant velocity 183 cm/s Systemic veins Estimated CVP 10 mm Hg Right ventricle RV pressure, S *33 mm Hg <30 LEGEND: Mean values are shown as u=mean value. Asterisk (*) wilson values outside specified normal range. Prepared and signed by Rodríguez Rosario [id number]
[2016-04-25] MEDS: PRAVASTATIN SOD 40 MG TAB PO SCH (22:00)
[2016-04-26 00:02] VITALS: BP 107/66; PULSE 81; RESP 17; TEMP 96.3; O2SAT 97
[2016-04-26] MEDS: HEPARIN SODIUM - SQ 10,000 UNITS/ML VIAL SQ SCH ×4 (00:27→22:51)
[2016-04-26 04:00] VITALS: BP 124/69; PULSE 79; RESP 17; TEMP 96.8; O2SAT 97
[2016-04-26] MEDS: INSULIN ASPART SUPPLEMENTAL SCALE SQ SCH ×2 (06:37→11:56)
[2016-04-26 08:00] VITALS: BP 140/87; PULSE 75; RESP 18; TEMP 96.8; O2SAT 97
[2016-04-26 08:04] LABS: AUTOMATED NEUTROPHIL # 8.6 TH/MM3 (1.8-7.7); BASOPHIL % 0.3 % (0.0-2.0); EOSINOPHIL # 0.1 TH/MM3 (0-0.4); EOSINOPHIL % 0.5 % (0.0-4.0); HEMATOCRIT 45.1 % (35.0-46.0); HEMO FLAGS DIFF FINAL; LYMPH % 19.1 % (9.0-44.0); LYMPHOCYTE # 2.2 TH/MM3 (1.0-4.8); MEAN CELL VOLUME 86.4 FL (80.0-100.0); MEAN CORPUSCULAR HEMOGLOBIN 29.5 PG (27.0-34.0); MEAN CORPUSCULAR HGB CONC 34.1 % (32.0-36.0); MONO % 5.7 % (0.0-8.0); NEUT % 74.4 % (16.0-70.0); PLATELET COUNT 310 TH/MM3 (150-450); RED BLOOD COUNT 5.22 MIL/MM3 (4.00-5.30); WHITE BLOOD COUNT 11.6 TH/MM3 (4.0-11.0)
[2016-04-26] MEDS: ASPIRIN 325 MG TAB PO SCH (08:08)
[2016-04-26] MEDS: SODIUM CHLORIDE 0.9% FLUSH 5 ML FLUSH IVF SCH ×2 (08:09→22:50)
[2016-04-26 08:34] LABS: ALT (GPT) 35 U/L (10-53); ANION GAP 10 MEQ/L (5-15); AST (GOT) 26 U/L (15-37); BICARBONATE 23.1 MEQ/L (21.0-32.0); BLOOD UREA NITROGEN 14 MG/DL (7-18); CHLORIDE 107 MEQ/L (98-107); GLOMERULAR FILTRATION RATE 98 ML/MIN (>89); POTASSIUM 3.8 MEQ/L (3.5-5.1); SODIUM (NA) 140 MEQ/L (136-145)
[2016-04-26 08:35] LABS: ALKALINE PHOSPHATASE 104 U/L (45-117); TOTAL BILIRUBIN ADULT 0.4 MG/DL (0.2-1.0)
--- NOTE | 2016-04-26 09:10 | HHI.PR ---
Addendum to Inpatient Note Additional Information Spoke with Dr. Poole re: poss PFO related CVA. He requested I let him do consult and TIFFANY. Consult given to him - he mentioned he has office this AM and will not be able to do TIFFANY until this PM Ever Price MD Apr 26, 2016 09:10
--- NOTE | 2016-04-26 09:40 | RADRPT ---
EXAM DATE/TIME: 04/26/2016 08:37 [facility] COMPARISON: No previous studies available for comparison. INDICATIONS : Bilateral leg edema. MEDICAL HISTORY : Visual changes. Stroke. SURGICAL HISTORY : Tonsillectomy.Tubal ligation. ENCOUNTER: Initial ACUITY: 1 day PAIN SCORE: 0/10 LOCATION: Bilateral legs. TECHNIQUE: Venous ultrasound of the left and right leg was performed from the inguinal ligament to the proximal calf. Real-time, color Doppler and spectral tracing, compression and augmentation techniques were us ed. FINDINGS: RIGHT LEG: There is normal compressibility of the deep venous system from the inguinal region to the proximal ca lf. No echogenic clot is seen in the lumen of the common femoral, femoral, popliteal, and posterior tibial veins. There is a normal response of the venous system to proximal and distal augmentation an d respiration. LEFT LEG: There is normal compressibility of the deep venous system from the inguinal region to the proximal ca lf. No echogenic clot is seen in the lumen of the common femoral, femoral, popliteal, and posterior tibial veins. There is a normal response of the venous system to proximal and distal augmentation an d respiration. CONCLUSION: Negative for deep venous thrombosis. Philip Cee MD FACR on April 26, 2016 at 9:38 Board Certified Radiologist. This report was verified electronically.
[2016-04-26] MEDS: LACTATED RINGER'S 1000 ML IV SCH (10:30)
[2016-04-26] MEDS ORDERED: METOPROLOL TARTRATE 25 MG TAB PO PRN (10:30)
[2016-04-26] MEDS: SODIUM CHLORID 0.9% 500 ML IV SCH (10:30)
[2016-04-26] MEDS ORDERED: INSULIN HUMAN REGULAR 1,000 UNITS/10 ML VIAL SQ PRN (10:30)
[2016-04-26 12:00] VITALS: BP 134/81; PULSE 68; RESP 18; TEMP 96.4; O2SAT 95
[2016-04-26] MEDS ORDERED: PROPOFOL 200 MG/20 ML AMP IV ONE (12:16)
--- NOTE | 2016-04-26 13:01 | HHI.PR ---
Subjective Remarks Follow-up CVA. She is doing okay awaiting TIFFANY. Denies visual changes, headache , speech and swallowing difficulty, numbness and focal weakness. Patient states she needs repeat MRI as recommended by neurology. We'll have nursing staff clarify Objective Vitals Vital Signs Date Time Temp Pulse Resp B/P Pulse Ox O2 Delivery O2 Flow Rate FiO2 04/26/16 08:00 96.8 75 18 140/87 97 04/26/16 04:00 96.8 79 17 124/69 97 04/26/16 00:02 96.3 81 17 107/66 97 04/25/16 19:00 96.2 76 16 138/83 97 04/25/16 16:00 96.4 85 16 136/88 95 I/O 04/25/16 04/25/16 04/25/16 04/26/16 04/26/16 04/26/16 07:00 15:00 23:00 07:00 15:00 23:00 Intake Total 240 ml 600 ml 480 ml 250 ml Balance 240 ml 600 ml 480 ml 250 ml Intake Oral 240 ml 600 ml 480 ml 250 ml # Voids 1 4 3 3 # Bowel Movements 0 1 0 0 Result Diagram: 04/26/16 0730 04/26/16 0730 Imaging Last Impressions Lower Extremity Ultrasound 04/26/16 0000 Signed Impressions: Service Date/Time: Tuesday, April 26, 2016 08:37 - CONCLUSION: Negative for deep venous thrombosis. Philip Cee MD FACR Neck Magnetic Resonance Angiography 04/23/16 0000 Signed Impressions: Service Date/Time: Saturday, April 23, 2016 12:05 - CONCLUSION: Severe left proximal ICA stenosis. aMyo Zeng MD Neck CTA 04/23/16 0000 Signed Impressions: Service Date/Time: Saturday, April 23, 2016 15:21 - CONCLUSION: 1. 12 mm long high grade, hemodynamically significant stenosis of the proximal left internal carotid artery. 2. Patent right carotid system. 3. Vertebrals within normal limits. Molina Salinas MD Head Magnetic Resonance Angiography 04/23/16 0000 Signed Impressions: Service Date/Time: Saturday, April 23, 2016 12:05 - CONCLUSION: 1. Fenestration of the basilar artery proximally otherwise unremarkable. Mayo Zeng MD Carotid Artery Ultrasound 04/23/16 0000 Signed Impressions: Service Date/Time: Saturday, April 23, 2016 17:37 - CONCLUSION: 1. High-grade , hemodynamically significant stenosis of the proximal left internal carotid artery. 2. Mild plaque of the right carotid bifurcation without hemodynamically significant narrowing. Molina Salinas MD Brain MRI 04/23/16 0000 Signed Impressions: Service Date/Time: Saturday, April 23, 2016 12:05 - CONCLUSION: 1. Left occipital infarct. In appearance. Mayo Zeng MD Objective Remarks GENERAL: Well-developed, well-nourished in no distress SKIN: Warm and dry. HEAD: Atraumatic. Normocephalic. EYES: Pupils equal and round. No scleral icterus. No injection or drainage. ENT: No nasal bleeding or discharge. Mucous membranes pink and moist. NECK: Trachea midline. No JVD. CARDIOVASCULAR: Regular rate and rhythm. RESPIRATORY: No accessory muscle use. Clear to auscultation. Breath sounds equal bilaterally. GASTROINTESTINAL: Abdomen soft, non-tender, nondistended. MUSCULOSKELETAL: Extremities without clubbing, cyanosis, or edema. No obvious deformities. NEUROLOGICAL: Awake and alert. No obvious cranial nerve deficits. Motor grossly within normal limits. Five out of 5 muscle strength in the arms and legs. Normal speech. PSYCHIATRIC: Appropriate mood and affect; insight and judgment normal. Procedures none A/P Problem List: (1) CVA (cerebral vascular accident) ICD Code: I63.9 Status: Acute (2) Transient visual loss, left eye ICD Code: H53.122 Status: Resolved (3) Carotid stenosis ICD Code: I65.29 Status: Chronic (4) Hyperlipidemia ICD Code: E78.5 Status: Acute (5) Hyperglycemia ICD Code: R73.9 Status: Acute (6) Impaired fasting glucose ICD Code: R73.01 Status: Acute Assessment and Plan (1) CVA (cerebral vascular accident) Plan: Patient admitted to the medical floor. MRI of the brain showed left occipital ischemic stroke. 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 MRI of the neck showed severe left proximal ICA stenosis. Vascular surgery consulted, recommended CTA of the neck which showed 12 mL long high-grade, hemodynamically significant stenosis of the proximal left internal carotid artery. Patent right carotid system. Vertebrals within normal limits. Continue aspirin and statin Neurology following 2 D echo ----> ef 55 to 60 %, possible PFO. Venous extremity dopplers w/o dvt. Consult cardiology for TIFFANY today No events reported on telemetry. neck CTA confirms high grade stenosis as above - discussed case w Dr Morton from vascular surgery - plan is to repeat MRI and see size of strokes prior to DC we'll clarify with neurology timing of repeat MRI. Possibly discharge patient home and have return for carotid endarterectomy after 2 to 3 weeks to decrease the risk of conversion of ischemic stroke into hemorrhagic stroke. (2) Transient visual loss, left eye Plan: Possibly due to TIAs and related to left occipital ischemic stroke. Management as above. (3) Carotid stenosis Plan: Vascular surgery consulted. Neck CTA shows high-grade stenosis. Plan is to perform endarterectomy in 2-3 weeks. (4) Hyperlipidemia Plan: Patient had a lipid profile with an elevated total cholesterol of 269, LDL cholesterol of 183, HDL, triglycerides 119. Continue statin. (5) Hyperglycemia Plan: Patient has had couple blood sugars above 120 with the last one being in the high 170s. The patient refused insulin coverage. Continue necessary with insulin coverage. 04/25/16 hemoglobin A1C 5.9 patient has impaired fating glucose tolerance. see above. DVT prophylaxis: Teds, heparin subcutaneous. Problem Qualifiers (1) CVA (cerebral vascular accident): (2) Carotid stenosis: Qualified Code: I65.22 - Stenosis of left carotid artery William Rosen MD Apr 26, 2016 13:01 Qualified Code: I65.22 - Stenosis of left carotid artery Jeison Parkinson MD Apr 25, 2016 14:30 Problem Qualifiers (1) CVA (cerebral vascular accident): (2) Carotid stenosis: Qualified Code: I65.22 - Stenosis of left carotid artery William Rosen MD Apr 26, 2016 13:01
[2016-04-26] MEDS ORDERED: ASPI325T PO (13:08)
[2016-04-26] MEDS ORDERED: PRAV40TA PO (13:08)
--- NOTE | 2016-04-26 13:08 | HHI.DCPOC ---
Discharge Care Plan Diagnosis: (1) CVA (cerebral vascular accident) Your Health Problems Are: Difficulty with ADL Exercise Tolerance Goals to Promote Your Health * To prevent worsening of your condition and complications * To maintain your health at the optimal level Directions to Meet Your Goals Take your medications as prescribed Follow your dietary instruction Follow activity as directed Keep your appointments as scheduled Take your immunizations and boosters as scheduled If your symptoms worsen call your PCP, if no PCP go to Urgent Care Center or Emergency Room Smoking is Dangerous to Your Health. Avoid second hand smoke Call the 24-hour hour crisis hotline for domestic abuse at William Rosen MD Apr 26, 2016 13:08
[2016-04-26] MEDS ORDERED: RESP: ALBUTEROL 2.5 MG/3 ML NEB (SCH) ONE (13:34)
[2016-04-26] MEDS ORDERED: MISCELLANEOUS NURSING INFORMATION XX PRN (13:45)
--- NOTE | 2016-04-26 14:19 | ETE ---
Study Study Date:04/26/2016 STUDY CONCLUSIONS SUMMARY - Left ventricle: The cavity size was normal. Wall thickness was increased in a pattern of mild LVH. Systolic function was normal. The estimated ejection fraction was in the range of 60% to 65%. Wall motion was normal; there were no regional wall motion abnormalities. Doppler parameters are consistent with abnormal left ventricular relaxation (grade 1 diastolic dysfunction). - Aortic valve: No evidence of vegetation. - Mitral valve: No evidence of vegetation. - Left atrium: The atrium was mildly dilated. No evidence of thrombus in the atrial cavity or appendage. - Atrial septum: Doppler and agitated saline contrast study showed a [id number] shunt through a patent foramen ovale. There was an atrial septal aneurysm. - Tricuspid valve: No evidence of vegetation. - Pulmonic valve: No evidence of vegetation. If LV function is below 40, please consider prescribing an ACEI or ARB or document rationale for non-use. PROCEDURE DATA Consent: The risks, benefits, and alternatives to the procedure were explained to the patient and informed consent was obtained. Procedure: Initial setup. The patient was brought to the laboratory in the fasting state. Intravenous access was obtained. Surface ECG leads and pulse oximetric signals were monitored. Sedation. Deep sedation was administered by anesthesiology. Transesophageal echocardiography. Topical anesthesia was obtained using viscous lidocaine. A transesophageal probe was inserted by the attending turret punch operator. Image quality was good. Study completion: All IVs inserted during the procedure were removed. The patient tolerated the procedure well. There were no complications. Transesophageal echocardiography. 2D, complete spectral Doppler, and color Doppler. CARDIAC ANATOMY LEFT VENTRICLE: The cavity size was normal. Wall thickness was increased in a pattern of mild LVH. Systolic function was normal. The estimated ejection fraction was in the range of 60% to 65%. Wall motion was normal; there were no regional wall motion abnormalities. Doppler parameters are consistent with abnormal left ventricular relaxation (grade 1 diastolic dysfunction). AORTIC VALVE: Structurally normal valve. Trileaflet; normal thickness leaflets. Cusp separation was normal. No evidence of vegetation. Doppler: No significant regurgitation. Aorta: - There was no atheroma. There was no evidence for dissection. Aortic root: The aortic root was not dilated. Ascending aorta: The ascending aorta was normal in size. Aortic arch: The aortic arch was normal in size. Descending aorta: The descending aorta was normal in size. MITRAL VALVE: Structurally normal valve. Leaflet separation was normal. No evidence of vegetation. Doppler: Trace regurgitation. LEFT ATRIUM: The atrium was mildly dilated. No evidence of thrombus in the atrial cavity or appendage. The appendage was morphologically a left appendage, multilobulated, and of normal size. Emptying velocity was normal. ATRIAL SEPTUM: Doppler and agitated saline contrast study showed a [id number] shunt through a patent foramen ovale. There was an atrial septal aneurysm. RIGHT VENTRICLE: The cavity size was normal. Wall thickness was normal. Systolic function was normal. PULMONIC VALVE: Structurally normal valve. No evidence of vegetation. TRICUSPID VALVE: Structurally normal valve. Leaflet separation was normal. No evidence of vegetation. Doppler: Trace regurgitation. PULMONARY ARTERY: The main pulmonary artery was normal-sized. RIGHT ATRIUM: The atrium was normal in size. There was the appearance of a Chiari network. PERICARDIUM: There was no pericardial effusion. Prepared and signed by Quentin Poole [id number]
--- NOTE | 2016-04-26 14:40 | MB ---
cc: DALIA DONOHUE DATE OF CONSULTATION: 04/26/2016 INDICATION Stroke, possible patent foramen ovale. HISTORY OF PRESENT ILLNESS A 60-year-old female without prior significant past medical history who presented with left visual changes about one week prior to presentation. She states that she had lost vision for about 10 minutes, completely resolved. Denies any other associated symptoms such as chest pain, palpitations, lightheadedness or dizziness. She had an MRI which showed a left occipital infarct. She also then had a MRA which showed no cerebral anatomy issues, but did have left internal carotid stenosis. She was seen by Dr. Gage from neurology in addition to Dr. Morton from vascular surgery. We were consulted because an echocardiogram done yesterday showed a suspicious PFO with [id number] shunting. We were asked for consideration of transesophageal echocardiogram. PAST MEDICAL HISTORY None. PAST SURGICAL HISTORY Tonsillectomy, tubal ligation. MEDICATIONS Aspirin. ALLERGIES CODEINE. FAMILY HISTORY Denies any family history of early coronary artery disease, sudden cardiac . SOCIAL HISTORY Former smoker, quit about 40 years ago. Occasional alcohol use. Denies any drug use. REVIEW OF SYSTEMS 12-point review of systems was performed and negative unless otherwise noted in the history of present illness. PHYSICAL EXAMINATION VITAL SIGNS: Temp 96, pulse 68, blood pressure 134/81 mmHg. GENERAL: Alert and oriented x3, in no acute distress. HEENT: Exam shows pupils are round, reactive to light and accommodation. Extraocular movements are intact. NECK: No elevation in jugular venous distension. No thyromegaly or lymphadenopathy. No carotid bruits. LUNGS: Clear to auscultation bilaterally. CARDIOVASCULAR: Regular rate and rhythm without murmurs, rubs or gallops. ABDOMEN: Nontender, nondistended. Good bowel sounds. No hepatosplenomegaly. EXTREMITIES: No clubbing, cyanosis or edema. Good peripheral pulses. Cranial nerves are intact. Motor and sensory grossly intact. LABORATORY DATA WBC 11.6, hemoglobin is 15.4, platelet count 310, INR is 0.9, sodium 140, potassium 3.8, BUN 14, creatinine 0.62. Transesophageal echocardiogram preliminary results full report to be completed and dictated. Normal ejection fraction, no significant valvular heart disease. There is a slightly aneurysmal intra-atrial septum with bidirectional shunting by Doppler interrogation and agitated saline contrast administration. CONCLUSION 1. Stroke, imaging confirmed left occipital distribution. 2. Amaurosis fugax. 3. PFO. 4. Severe left internal carotid stenosis. PLAN I will discuss the case in detail with neurology. Her left occipital stroke on MRI is not consistent with the distribution of the left internal carotid stenosis. The next decision would need to be whether this internal carotid stenosis was an incidental finding and cardioembolic etiology is more likely. Currently she is on aspirin 325 mg. If paradoxical systemic embolization is a true consideration she would need to be converted to anticoagulation or have the PFO closed percutaneously. In the setting of a theoretically asymptomatic left severe internal carotid stenosis, that would need to be staged down the road for concern of hemorrhagic conversion. Will make a decision after discussion with neurology about next course of treatment. Results discussed with Dr. Rosen. MD WALDEMAR Wang/MARCO /1:46 PM /2:03 PM
[2016-04-26 16:00] VITALS: BP 146/90; PULSE 78; RESP 18; TEMP 96.3; O2SAT 97
[2016-04-26 20:00] VITALS: BP 122/72; PULSE 86; RESP 18; TEMP 95.6; O2SAT 94
[2016-04-26] MEDS: ZOLPIDEM TARTRATE 5 MG TAB PO PRN (22:51)
[2016-04-26] MEDS: PRAVASTATIN SOD 40 MG TAB PO SCH (22:51)
[2016-04-27] VITALS: BP 112/63; PULSE 69; RESP 19; TEMP 96.5; O2SAT 98
[2016-04-27] MEDS: SODIUM CHLORID 0.9% 500 ML IV SCH (03:10)
[2016-04-27 04:00] VITALS: BP 103/68; PULSE 77; RESP 18; TEMP 96.9; O2SAT 96
[2016-04-27 08:00] VITALS: BP 117/76; PULSE 80; RESP 18; TEMP 96.4; O2SAT 98
[2016-04-27] MEDS: HEPARIN SODIUM - SQ 10,000 UNITS/ML VIAL SQ SCH ×2 (08:59→15:50)
[2016-04-27] MEDS: ASPIRIN 325 MG TAB PO SCH (08:59)
[2016-04-27] MEDS: SODIUM CHLORIDE 0.9% FLUSH 5 ML FLUSH IVF SCH (09:00)
[2016-04-27] MEDS: LACTATED RINGER'S 1000 ML IV SCH (10:30)
--- NOTE | 2016-04-27 11:33 | PD.CARD.PN ---
Subjective Subjective Remarks no complaints Objective Medications Active Medications Albuterol Sulfate (Albuterol Neb) 2.5 mg STK-MED ONCE .ROUTE; Start 04/26/16 at 13:34; Stop 04/26/16 at 13:35; Status DC Miscellaneous Information 1 UNSCH PRN XX; Start 04/26/16 at 13:45; Stop 04/29/16 at 13:44 Vital Signs / I&O Vital Signs Date Time Temp Pulse Resp B/P Pulse Ox O2 Delivery O2 Flow Rate FiO2 04/27/16 08:00 96.4 80 18 117/76 98 04/27/16 07:53 Room Air 04/27/16 04:00 96.9 77 18 103/68 96 04/27/16 00:00 96.5 69 19 112/63 98 04/26/16 20:00 95.6 86 18 122/72 94 04/26/16 16:00 96.3 78 18 146/90 97 04/26/16 12:00 96.4 68 18 134/81 95 I/O 04/26/16 04/26/16 04/26/16 04/27/16 04/27/16 04/27/16 06:59 14:59 22:59 06:59 14:59 22:59 Intake Total 250 ml 0 ml 480 ml 480 ml Balance 250 ml 0 ml 480 ml 480 ml Intake Oral 250 ml 0 ml 480 ml 480 ml # Voids 3 4 3 2 # Bowel Movements 0 0 0 0 Physical Exam GENERAL: SKIN: Warm and dry. HEAD: Normocephalic. EYES: No scleral icterus. No injection or drainage. NECK: Supple, trachea midline. No JVD or lymphadenopathy. CARDIOVASCULAR: Regular rate and rhythm without murmurs, gallops, or rubs. RESPIRATORY: Breath sounds equal bilaterally. No accessory muscle use. GASTROINTESTINAL: Abdomen soft, non-tender, nondistended. MUSCULOSKELETAL: No cyanosis, or edema. BACK: Nontender without obvious deformity. No CVA tenderness. Imaging Last Impressions Lower Extremity Ultrasound 04/26/16 0000 Signed Impressions: Service Date/Time: Tuesday, April 26, 2016 08:37 - CONCLUSION: Negative for deep venous thrombosis. Philip Cee MD FACR Neck Magnetic Resonance Angiography 04/23/16 0000 Signed Impressions: Service Date/Time: Saturday, April 23, 2016 12:05 - CONCLUSION: Severe left proximal ICA stenosis. Mayo Zeng MD Neck CTA 04/23/16 0000 Signed Impressions: Service Date/Time: Saturday, April 23, 2016 15:21 - CONCLUSION: 1. 12 mm long high grade, hemodynamically significant stenosis of the proximal left internal carotid artery. 2. Patent right carotid system. 3. Vertebrals within normal limits. Molina Salinas MD Head Magnetic Resonance Angiography 04/23/16 0000 Signed Impressions: Service Date/Time: Saturday, April 23, 2016 12:05 - CONCLUSION: 1. Fenestration of the basilar artery proximally otherwise unremarkable. Mayo Zeng MD Carotid Artery Ultrasound 04/23/16 0000 Signed Impressions: Service Date/Time: Saturday, April 23, 2016 17:37 - CONCLUSION: 1. High-grade , hemodynamically significant stenosis of the proximal left internal carotid artery. 2. Mild plaque of the right carotid bifurcation without hemodynamically significant narrowing. Molina Salinas MD Brain MRI 04/23/16 0000 Signed Impressions: Service Date/Time: Saturday, April 23, 2016 12:05 - CONCLUSION: 1. Left occipital infarct. In appearance. Mayo Zeng MD Assessment and Plan Assessment and Plan CVA - L occipital CVA. LICA stenosis. +PFO with shunting. I suspect cardioembolic etiology since distribution does not fit LICA. d/w dr. mitchell. Tenatively plan for endovascular PFO closure followed by endarterectomy. not anticoagulation candidate due to anticipated surgery. Will discuss timing with Neurology. Possible closure sunday. Quentin Poole MD Apr 27, 2016 11:33
[2016-04-27 12:00] VITALS: BP 121/76; PULSE 75; RESP 18; TEMP 98.1; O2SAT 96
--- NOTE | 2016-04-27 12:11 | HHI.PR ---
Subjective Remarks Follow-up CVA. She is doing okay. Agrees with current management. Discussed with RN and cardiology, awaiting input from neurology regarding timing of repeat MRI and surgical intervention by cardiology and vascular surgery Objective Vitals Vital Signs Date Time Temp Pulse Resp B/P Pulse Ox O2 Delivery O2 Flow Rate FiO2 04/27/16 08:00 96.4 80 18 117/76 98 04/27/16 07:53 Room Air 04/27/16 04:00 96.9 77 18 103/68 96 04/27/16 00:00 96.5 69 19 112/63 98 04/26/16 20:00 95.6 86 18 122/72 94 04/26/16 16:00 96.3 78 18 146/90 97 I/O 04/26/16 04/26/16 04/26/16 04/27/16 04/27/16 04/27/16 07:00 15:00 23:00 07:00 15:00 23:00 Intake Total 250 ml 0 ml 480 ml 480 ml Balance 250 ml 0 ml 480 ml 480 ml Intake Oral 250 ml 0 ml 480 ml 480 ml # Voids 3 4 3 2 # Bowel Movements 0 0 0 0 Result Diagram: 04/26/16 0730 04/26/16 0730 Imaging Last Impressions Lower Extremity Ultrasound 04/26/16 0000 Signed Impressions: Service Date/Time: Tuesday, April 26, 2016 08:37 - CONCLUSION: Negative for deep venous thrombosis. Philip Cee MD FACR Neck Magnetic Resonance Angiography 04/23/16 0000 Signed Impressions: Service Date/Time: Saturday, April 23, 2016 12:05 - CONCLUSION: Severe left proximal ICA stenosis. Mayo Zeng MD Neck CTA 04/23/16 0000 Signed Impressions: Service Date/Time: Saturday, April 23, 2016 15:21 - CONCLUSION: 1. 12 mm long high grade, hemodynamically significant stenosis of the proximal left internal carotid artery. 2. Patent right carotid system. 3. Vertebrals within normal limits. Molina Salinas MD Head Magnetic Resonance Angiography 04/23/16 0000 Signed Impressions: Service Date/Time: Saturday, April 23, 2016 12:05 - CONCLUSION: 1. Fenestration of the basilar artery proximally otherwise unremarkable. Mayo Zeng MD Carotid Artery Ultrasound 04/23/16 0000 Signed Impressions: Service Date/Time: Saturday, April 23, 2016 17:37 - CONCLUSION: 1. High-grade , hemodynamically significant stenosis of the proximal left internal carotid artery. 2. Mild plaque of the right carotid bifurcation without hemodynamically significant narrowing. Molina Salinas MD Brain MRI 04/23/16 0000 Signed Impressions: Service Date/Time: Saturday, April 23, 2016 12:05 - CONCLUSION: 1. Left occipital infarct. In appearance. Mayo Zeng MD Objective Remarks GENERAL: Well-developed, well-nourished in no distress SKIN: Warm and dry. HEAD: Atraumatic. Normocephalic. EYES: Pupils equal and round. No scleral icterus. No injection or drainage. ENT: No nasal bleeding or discharge. Mucous membranes pink and moist. NECK: Trachea midline. No JVD. CARDIOVASCULAR: Regular rate and rhythm. RESPIRATORY: No accessory muscle use. Clear to auscultation. Breath sounds equal bilaterally. GASTROINTESTINAL: Abdomen soft, non-tender, nondistended. MUSCULOSKELETAL: Extremities without clubbing, cyanosis, or edema. No obvious deformities. NEUROLOGICAL: Awake and alert. No obvious cranial nerve deficits. Motor grossly within normal limits. Five out of 5 muscle strength in the arms and legs. Normal speech. PSYCHIATRIC: Appropriate mood and affect; insight and judgment normal. Procedures none A/P Problem List: (1) CVA (cerebral vascular accident) ICD Code: I63.9 Status: Acute (2) Transient visual loss, left eye ICD Code: H53.122 Status: Resolved (3) Carotid stenosis ICD Code: I65.29 Status: Chronic (4) Hyperlipidemia ICD Code: E78.5 Status: Acute (5) Hyperglycemia ICD Code: R73.9 Status: Acute (6) Impaired fasting glucose ICD Code: R73.01 Status: Acute Assessment and Plan (1) CVA (cerebral vascular accident) Plan: Patient admitted to the medical floor. MRI of the brain showed left occipital ischemic stroke. 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 MRI of the neck showed severe left proximal ICA stenosis. Vascular surgery consulted, recommended CTA of the neck which showed 12 mL long high-grade, hemodynamically significant stenosis of the proximal left internal carotid artery. Patent right carotid system. Vertebrals within normal limits. Continue aspirin and statin Neurology following 2 D echo ----> ef 55 to 60 %, possible PFO. Venous extremity dopplers w/o dvt. Consult cardiology for TIFFANY which showed PFO. Follow-up CVA. Discussed with cardiology, awaiting input from neurology regarding timing of repeat MRI and surgical intervention by cardiology and vascular surgery No events reported on telemetry. neck CTA confirms high grade stenosis as above (2) Transient visual loss, left eye Plan: Possibly due to TIAs and related to left occipital ischemic stroke. Management as above. (3) Carotid stenosis Plan: Vascular surgery consulted. Neck CTA shows high-grade stenosis. Plan is to perform endarterectomy in 2-3 weeks. (4) Hyperlipidemia Plan: Patient had a lipid profile with an elevated total cholesterol of 269, LDL cholesterol of 183, HDL, triglycerides 119. Continue statin. (5) Hyperglycemia Plan: Patient has had couple blood sugars above 120 with the last one being in the high 170s. The patient refused insulin coverage. Continue necessary with insulin coverage. 04/25/16 hemoglobin A1C 5.9 patient has impaired fating glucose tolerance. see above. DVT prophylaxis: Teds, heparin subcutaneous. Discharge Planning Not ready for discharge Problem Qualifiers (1) CVA (cerebral vascular accident): (2) Carotid stenosis: Qualified Code: I65.22 - Stenosis of left carotid artery William Rosen MD Apr 27, 2016 12:11
[2016-04-27 15:48] VITALS: BP 107/71; PULSE 77; RESP 18; TEMP 97; O2SAT 96
--- NOTE | 2016-04-27 15:54 | PD.VS.PN ---
Subjective Subjective/Hospital Course No new TIA symptoms. Objective Vitals/I&O Date Time Temp Pulse Resp B/P Pulse Ox O2 Delivery O2 Flow Rate FiO2 04/27/16 15:48 97.0 77 18 107/71 96 04/27/16 12:00 98.1 75 18 121/76 96 04/27/16 08:00 96.4 80 18 117/76 98 04/27/16 07:53 Room Air 04/27/16 04:00 96.9 77 18 103/68 96 04/27/16 00:00 96.5 69 19 112/63 98 04/26/16 20:00 95.6 86 18 122/72 94 04/26/16 16:00 96.3 78 18 146/90 97 04/27/16 04/27/16 04/27/16 06:59 14:59 22:59 Intake Total 480 ml 1200 ml Balance 480 ml 1200 ml Imaging Last 48 hours Impressions Lower Extremity Ultrasound 04/26/16 0000 Signed Impressions: Service Date/Time: Tuesday, April 26, 2016 08:37 - CONCLUSION: Negative for deep venous thrombosis. Philip Cee MD FACR Assessment and Plan Assessment: (1) Transient visual loss, left eye Status: Resolved (2) CVA (cerebral vascular accident) Status: Acute (3) Carotid stenosis Status: Chronic Plan This is a 60 year old female who presented with a left sided posterior circulation CVA. She also has a left sided high grade carotid stenosis. Presently asymptomatic since hospitalized on antiplatelet and anticoagulation tx. Spoke with cardiology, plan for intervention for PFO next sunday. Left CEA later next week ( most likely) while patient in hospital. Will be giving anticoagulation at time of carotid endarterectomy. Repeat MRI can be performed early next week or earlier if deemed appropriate by symptoms or neurology recommendation. Will continue to follow Panchito Morton DO FACS Dental Front Office Assistant of Vascular Surgery /[place] Problem Qualifiers (1) CVA (cerebral vascular accident): (2) Carotid stenosis: Qualified Code: I65.22 - Stenosis of left carotid artery Panchito Morton DO Apr 27, 2016 15:54
[2016-04-27 20:00] VITALS: BP 125/81; PULSE 79; RESP 18; TEMP 96.1; O2SAT 96
[2016-04-27] MEDS: PRAVASTATIN SOD 40 MG TAB PO SCH (22:07)
[2016-04-28] VITALS (7 sets, daily range): BP systolic 108–139; BP diastolic 68–91; PULSE 68–87; RESP 16–18; TEMP 95.6–98.6; O2SAT 96–98
[2016-04-28] MEDS: HEPARIN SODIUM - SQ 10,000 UNITS/ML VIAL SQ SCH ×3 (00:34→17:26)
[2016-04-28] MEDS: ZOLPIDEM TARTRATE 5 MG TAB PO PRN (00:34)
[2016-04-28] MEDS: SODIUM CHLORIDE 0.9% FLUSH 5 ML FLUSH IVF SCH ×3 (00:35→22:45)
--- NOTE | 2016-04-28 08:19 | PD.CARD.PN ---
Subjective Subjective Remarks No TIA symptoms (Ludin Garland) Objective Vital Signs / I&O Vital Signs Date Time Temp Pulse Resp B/P Pulse Ox O2 Delivery O2 Flow Rate FiO2 04/28/16 04:00 97.2 74 18 127/72 97 04/28/16 00:00 95.7 76 18 139/75 96 04/27/16 20:00 96.1 79 18 125/81 96 04/27/16 15:48 97.0 77 18 107/71 96 04/27/16 12:00 98.1 75 18 121/76 96 I/O 04/27/16 04/27/16 04/27/16 04/28/16 04/28/16 04/28/16 07:00 15:00 23:00 07:00 15:00 23:00 Intake Total 480 ml 1200 ml 600 ml 480 ml Balance 480 ml 1200 ml 600 ml 480 ml Intake Oral 480 ml 1200 ml 600 ml 480 ml # Voids 2 5 3 1 # Bowel Movements 0 1 1 0 Physical Exam GENERAL: Well-nourished, well-developed patient in no apparent distress. NECK: No JVD. No carotid bruit. CARDIOVASCULAR: Regular rate and rhythm. S1/S2 no murmur, rub, or gallop. RESPIRATORY: No accessory muscle use. Clear to auscultation. Breath sounds equal bilaterally. GASTROINTESTINAL: Abdomen soft, non-tender, nondistended. MUSCULOSKELETAL: Extremities without clubbing, cyanosis, or edema. (Ludin Garland) Assessment and Plan Problem List: (1) CVA (cerebral vascular accident) (2) Hyperlipidemia Assessment and Plan CVA - L occipital CVA. LICA stenosis. +PFO with shunting. Probable cardioembolic etiology since distribution does not fit LICA. PFO closure pending On pravastatin for hyperlipidemia (Ludin Garland) Assessment and Plan Plan: NPO p MN sunday PFO closure 12:30 pm sunday (Quentin Poole MD) Problem Qualifiers (1) CVA (cerebral vascular accident): Ludin Garland Apr 28, 2016 08:19 Quentin Poole MD Apr 28, 2016 13:56
[2016-04-28] MEDS: ASPIRIN 325 MG TAB PO SCH (09:52)
[2016-04-28] MEDS: LACTATED RINGER'S 1000 ML IV SCH (10:30)
--- NOTE | 2016-04-28 12:33 | HHI.PR ---
Subjective Remarks Follow-up CVA. She is doing okay. Awaiting neurology input regarding PFO closure this Sunday and CEA this coming . Discussed with vascular surgery and cardiology. Objective Vitals Vital Signs Date Time Temp Pulse Resp B/P Pulse Ox O2 Delivery O2 Flow Rate FiO2 04/28/16 12:00 95.6 87 18 136/91 98 04/28/16 08:00 97.0 69 18 108/68 97 04/28/16 04:00 97.2 74 18 127/72 97 04/28/16 00:00 95.7 76 18 139/75 96 04/27/16 20:00 96.1 79 18 125/81 96 04/27/16 15:48 97.0 77 18 107/71 96 I/O 04/27/16 04/27/16 04/27/16 04/28/16 04/28/16 04/28/16 07:00 15:00 23:00 07:00 15:00 23:00 Intake Total 480 ml 1200 ml 600 ml 480 ml Balance 480 ml 1200 ml 600 ml 480 ml Intake Oral 480 ml 1200 ml 600 ml 480 ml # Voids 2 5 3 1 # Bowel Movements 0 1 1 0 Result Diagram: 04/26/16 0730 04/26/16 0730 Imaging Last Impressions Lower Extremity Ultrasound 04/26/16 0000 Signed Impressions: Service Date/Time: Tuesday, April 26, 2016 08:37 - CONCLUSION: Negative for deep venous thrombosis. Philip Cee MD FACR Neck Magnetic Resonance Angiography 04/23/16 0000 Signed Impressions: Service Date/Time: Saturday, April 23, 2016 12:05 - CONCLUSION: Severe left proximal ICA stenosis. Mayo Zeng MD Neck CTA 04/23/16 0000 Signed Impressions: Service Date/Time: Saturday, April 23, 2016 15:21 - CONCLUSION: 1. 12 mm long high grade, hemodynamically significant stenosis of the proximal left internal carotid artery. 2. Patent right carotid system. 3. Vertebrals within normal limits. Molina Salinas MD Head Magnetic Resonance Angiography 04/23/16 0000 Signed Impressions: Service Date/Time: Saturday, April 23, 2016 12:05 - CONCLUSION: 1. Fenestration of the basilar artery proximally otherwise unremarkable. Mayo Zeng MD Carotid Artery Ultrasound 04/23/16 0000 Signed Impressions: Service Date/Time: Saturday, April 23, 2016 17:37 - CONCLUSION: 1. High-grade , hemodynamically significant stenosis of the proximal left internal carotid artery. 2. Mild plaque of the right carotid bifurcation without hemodynamically significant narrowing. Molina Salinas MD Brain MRI 04/23/16 0000 Signed Impressions: Service Date/Time: Saturday, April 23, 2016 12:05 - CONCLUSION: 1. Left occipital infarct. In appearance. Mayo Zeng MD Objective Remarks GENERAL: Well-developed, well-nourished in no distress SKIN: Warm and dry. HEAD: Atraumatic. Normocephalic. EYES: Pupils equal and round. No scleral icterus. No injection or drainage. ENT: No nasal bleeding or discharge. Mucous membranes pink and moist. NECK: Trachea midline. No JVD. CARDIOVASCULAR: Regular rate and rhythm. RESPIRATORY: No accessory muscle use. Clear to auscultation. Breath sounds equal bilaterally. GASTROINTESTINAL: Abdomen soft, non-tender, nondistended. MUSCULOSKELETAL: Extremities without clubbing, cyanosis, or edema. No obvious deformities. NEUROLOGICAL: Awake and alert. No obvious cranial nerve deficits. Motor grossly within normal limits. Five out of 5 muscle strength in the arms and legs. Normal speech. PSYCHIATRIC: Appropriate mood and affect; insight and judgment normal. Procedures none A/P Problem List: (1) CVA (cerebral vascular accident) ICD Code: I63.9 Status: Acute (2) Transient visual loss, left eye ICD Code: H53.122 Status: Resolved (3) Carotid stenosis ICD Code: I65.29 Status: Chronic (4) Hyperlipidemia ICD Code: E78.5 Status: Acute (5) Hyperglycemia ICD Code: R73.9 Status: Acute (6) Impaired fasting glucose ICD Code: R73.01 Status: Acute Assessment and Plan (1) CVA (cerebral vascular accident) Plan: Patient admitted to the medical floor. MRI of the brain showed left occipital ischemic stroke. 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 MRI of the neck showed severe left proximal ICA stenosis. Vascular surgery consulted, recommended CTA of the neck which showed 12 mL long high-grade, hemodynamically significant stenosis of the proximal left internal carotid artery. Patent right carotid system. Vertebrals within normal limits. Continue aspirin and statin Neurology following 2 D echo ----> ef 55 to 60 %, possible PFO. Venous extremity dopplers w/o dvt. Consult cardiology for TIFFANY which showed PFO. Follow-up CVA. Discussed with cardiology, awaiting input from neurology regarding timing of repeat MRI and surgical intervention by cardiology and vascular surgery. Awaiting return call from neurology No events reported on telemetry. (2) Transient visual loss, left eye Plan: Possibly due to TIAs and related to left occipital ischemic stroke. Management as above. (3) Carotid stenosis Plan: Vascular surgery consulted. Neck CTA shows high-grade stenosis. Plan is to perform endarterectomy next week (4) Hyperlipidemia Plan: Patient had a lipid profile with an elevated total cholesterol of 269, LDL cholesterol of 183, HDL, triglycerides 119. Continue statin. (5) Hyperglycemia Plan: Patient has had couple blood sugars above 120 with the last one being in the high 170s. The patient refused insulin coverage. Continue necessary with insulin coverage. 04/25/16 hemoglobin A1C 5.9 patient has impaired fating glucose tolerance. see above. DVT prophylaxis: Teds, heparin subcutaneous. Discharge Planning Not ready for discharge Problem Qualifiers (1) CVA (cerebral vascular accident): (2) Carotid stenosis: Qualified Code: I65.22 - Stenosis of left carotid artery William Rosen MD Apr 28, 2016 12:33
--- NOTE | 2016-04-28 17:47 | PD.CONS ---
[facility] Service Rehabilitation Medicine Consult Requested By Dr. Yeboah Reason for Consult Comprehensive rehabilitation evaluation. Primary Care Physician No Primary Care Physician History of Present Illness Heide Jean is a 60-year-old right-hand dominant female admitted [facility] 04/23/16 with left visual changes which began 1 week prior to admission. Brain MRI 04/23/16 showed left occipital infarct. Carotid ultrasound showed high-grade left ICA stenosis. Echocardiogram showed possible PFO. TIFFANY showed PFO. Cardiology and vascular surgery are following. Patient denies any headache. Her cognition is at baseline. She reports that her vision is close to baseline. She feels that her glasses need to be adjusted for acuity. She denies any weakness or loss of sensation in the upper lower extremities. She is continent of bowel and bladder. Feels that her balance is stable. Review of Systems Constitutional: DENIES: Fatigue Eyes: COMPLAINS OF: Blurred vision, DENIES: Vision loss Ears, nose, mouth, throat: DENIES: Throat pain Respiratory: DENIES: Shortness of breath Cardiovascular: DENIES: Chest pain Genitourinary: DENIES: Urinary incontinence Musculoskeletal: DENIES: Back pain Integumentary: DENIES: Rash Hematologic/lymphatic: DENIES: Bruising Neurologic: DENIES: Headache Psychiatric: DENIES: Confusion Past Family Social History Allergies: Coded Allergies: Ambien (Verified Allergy, Unknown, Hives, 04/30/16) developed hives while also on other new meds(pravachol and SQ heparin) Heparin (Verified Allergy, Unknown, Hives, 04/30/16) developed hives while also on other new meds(pravachol and ambien) Pravachol (Verified Allergy, Unknown, Hives, 04/30/16) eveloped hives while also on other new meds(ambien and SQ heparin) Codeine (Verified Adverse Reaction, Severe, Nausea/Vomiting, 04/23/16) Past Medical History None Past Surgical History Tonsillectomy Tubal ligation Current Medications Current Medications Medications (Trade) Dose Ordered Sig/Adrien Route Start Time Stop Time Status Last Admin (NS Flush) 2 ml BID IVF 04/23/16 21:00 04/28/16 09:00 (NS Flush) 2 ml UNSCH PRN IVF 04/23/16 14:45 (Vasotec Inj) 1.25 mg Q4H PRN IV 04/23/16 14:45 (Aspirin) 325 mg DAILY PO 04/24/16 09:00 04/28/16 09:52 (Pravachol) 40 mg HS PO 04/23/16 21:00 04/27/16 22:07 (Heparin Inj) 5,000 units Q8H SQ 04/23/16 16:00 04/28/16 17:26 Zolpidem Tartrate 5 mg 5 mg HS PRN PO 04/24/16 20:00 04/28/16 00:34 (Lr 1000 ml Inj) 1,000 ml @ 30 mls/hr Q24H IV 04/26/16 10:30 Miscellaneous Information 1 UNSCH PRN XX 04/26/16 13:45 04/29/16 13:44 Family History Family history of stroke Social History Prior to admission patient lived in [place], [place]. She is independent with all mobility and ADLs Exam I&O / VS 04/27/16 04/27/16 04/28/16 15:00 23:00 07:00 Intake Total 1200 ml 600 ml 480 ml Balance 1200 ml 600 ml 480 ml Intake Oral 1200 ml 600 ml 480 ml # Voids 5 3 1 # Bowel Movements 1 1 0 Vital Signs Date Time Temp Pulse Resp B/P Pulse Ox O2 Delivery O2 Flow Rate FiO2 04/28/16 13:38 Room Air 2.00 21 04/28/16 12:00 95.6 87 18 136/91 98 04/28/16 08:00 97.0 69 18 108/68 97 04/28/16 04:00 97.2 74 18 127/72 97 04/28/16 00:00 95.7 76 18 139/75 96 04/27/16 20:00 96.1 79 18 125/81 96 General: No acute distress Respiratory: Lungs CTA, Non-labored respirations, BS equal Gastrointestinal: Positive Bowel Sounds, Non-Distended, Non-Tender Cardiovascular: Normal rate, Regular Rhythm Skin: Other (no rash noted) Musculoskeletal: Swelling Psychiatric: Cooperative, Appropriate mood & affect Orientation: oriented to Self, oriented to Place, oriented to Time, oriented to Situation Neurologic: Cranial Nerves (intact 2 through 12), Visual [place]addell (intact to confrontation), Speech (clear), Coordination (intact), Neglect (none) Motor: Right Upper Extremity (5/5), Left Upper Extremity (5/5), Right Lower Extremity (5/5), Left Lower Extremity Sensory Intact to light touch in both upper and lower extremities DTRs: Normal Babinski: Negative Clonus: Negative Balance: Gait (steady on a level surface without an assistive device) Assessment and Plan Diagnosis: (1) CVA (cerebral vascular accident) Plan 1. Patient transfers and ambulated independently with PT [address] swallow eval and tolerating regular diet with thin liquids 3. OT notes independent with ADL's 4. No formal rehab needs identified for discharge. Will follow up as needed Thank you for this consult. Cindy Mittal MD Apr 28, 2016 17:47
--- NOTE | 2016-04-28 18:41 | RADRPT ---
EXAM DATE/TIME: 04/28/2016 18:08 [place] COMPARISON: MRI BRAIN W/O CONTRAST, April 23, 2016, 12:05. INDICATIONS : Stroke. MEDICAL HISTORY : Stroke SURGICAL HISTORY : Tonsillectomy. Tubal ligation. ENCOUNTER: Subsequent ACUITY: 4-6 days PAIN SCORE: 0/10 LOCATION: Head. TECHNIQUE: Multiplanar, multisequence MRI of the brain was performed without contrast. FINDINGS: Comparison is April 23. There is a resolving infarct in the left parieto-occipital region. No new in farct. No mass, new hemorrhage or midline shift. No hydrocephalus. There is some hemosiderin depositi on in the area of infarct. CONCLUSION: 1. Resolving small infarct in the left parieto-occipital region. No acute infarct identified. Larry Mohr MD on April 28, 2016 at 18:35 Board Certified Radiologist. This report was verified electronically.
--- NOTE | 2016-04-28 21:42 | HHI.PR ---
Review/Management Diagnosis IMAGING - Brain MRI without contrast revealed a left occipital infarct. 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 - Neck MRA with contrast revealed severe left proximal ICA stenosis. - A repeat MRI brain 04/28/2016 revealed a resolving infarction with small hemosiderin deposition in the infarcted area. DIAGNOSTIC IMPRESSION 1. Amaurosis fugax / Transient ischemic attack. 2. Left occipital ischemic infarct. 3. Likely etiology of the amaurosis fugax is left ICA symptomatic artery 4. PFO . Plan - Aspirin 325 mg daily. - Neurological checks q.4h. - DVT prophylaxis. - GI prophylaxis. - I spoke with cardiology regarding the the PFO closure - Vascular surgery on board, I spoke with vascular surgery regarding timing of left CEA - In light of the result of repeat MRI brain revealing a resolving infarct, smaller in size, and the hemosiderin deposits in the infarcted area, however, there is clear evidence that the risk of stroke is greater than the risk of bleeding, especially that patient has had two episodes of Amaurosis fugax. As per the guidelines, in this clinical setting the timing of CEA is within two weeks after a stable ischemic stroke, hence next week as planned by Vascular surgery is a reasonable timing. This also goes well with the PFO closure that can be done on Sunday as per cardiology recommendation. Diagnosis/Plan: Subjective Subjective Comments No acute events reported TIFFANY revealed PFO A repeat MRI brain revealed a resolving parieto-occipital infarction with hemosiderin stain in the infarcted area Active Medications Current Medications Medications (Trade) Dose Ordered Sig/Adrien Route Start Time Stop Time Status Last Admin (NS Flush) 2 ml BID IVF 04/23/16 21:00 04/28/16 09:00 (NS Flush) 2 ml UNSCH PRN IVF 04/23/16 14:45 (Vasotec Inj) 1.25 mg Q4H PRN IV 04/23/16 14:45 (Aspirin) 325 mg DAILY PO 04/24/16 09:00 04/28/16 09:52 (Pravachol) 40 mg HS PO 04/23/16 21:00 04/27/16 22:07 (Heparin Inj) 5,000 units Q8H SQ 04/23/16 16:00 04/28/16 17:26 Zolpidem Tartrate 5 mg 5 mg HS PRN PO 04/24/16 20:00 1/6/17 00:34 (Lr 1000 ml Inj) 1,000 ml @ 30 mls/hr Q24H IV 04/26/16 10:30 Miscellaneous Information 1 UNSCH PRN XX 04/26/16 13:45 04/29/16 13:44 Allergies Allergies Coded Allergies Codeine (Verified Adverse Reaction, Severe, Nausea/Vomiting, 04/23/16) Exam I&O / VS 04/27/16 04/27/16 04/28/16 15:00 23:00 07:00 Intake Total 1200 ml 600 ml 480 ml Balance 1200 ml 600 ml 480 ml Intake Oral 1200 ml 600 ml 480 ml # Voids 5 3 1 # Bowel Movements 1 1 0 Vital Signs Date Time Temp Pulse Resp B/P Pulse Ox O2 Delivery O2 Flow Rate FiO2 04/28/16 20:00 98.6 74 16 137/86 98 04/28/16 18:14 78 04/28/16 16:00 96.2 68 18 114/76 98 04/28/16 13:38 Room Air 2.00 21 04/28/16 12:00 95.6 87 18 136/91 98 04/28/16 08:00 97.0 69 18 108/68 97 04/28/16 04:00 97.2 74 18 127/72 97 04/28/16 00:00 95.7 76 18 139/75 96 Exam Comments GENERAL: Well-nourished, well-developed in no apparent distress. Good historian. HEENT: Atraumatic, normocephalic. Intact vision, intact hearing. NECK: No carotid bruits. Supple. No meningeal signs. CARDIOVASCULAR: Regular rate and rhythm. No murmurs. LUNGS: Clear to auscultation. No wheezes. MUSCULOSKELETAL: The extremities without clubbing or cyanosis. Moves all extremities equally. NEUROLOGICAL: Awake, alert, oriented to time, person and place. Cranial nerves II-XII are intact. Normal visual gautam. Motor system 5/5 bilateral, symmetrical. Sensory system is intact to touch and temperature, bilateral, symmetrical. Reflexes are 2+ bilateral, symmetrical. Plantars are bilaterally downgoing. Intact memory. Intact speech. Intact speech content. Cerebellar functions, [id number], [id number] are intact. Objective Radiology Results Last 72 hours Impressions Brain MRI 04/28/16 0000 Signed Impressions: Service Date/Time: Thursday, April 28, 2016 18:08 - CONCLUSION: 1. Resolving small infarct in the left parieto-occipital region. No acute infarct identified. Larry Mohr MD Lower Extremity Ultrasound 04/26/16 0000 Signed Impressions: Service Date/Time: Tuesday, April 26, 2016 08:37 - CONCLUSION: Negative for deep venous thrombosis. Philip Cee MD FACR Veda Gage MD Apr 28, 2016 21:42
[2016-04-28] MEDS: PRAVASTATIN SOD 40 MG TAB PO SCH (22:45)
[2016-04-29] VITALS (7 sets, daily range): BP systolic 97–141; BP diastolic 69–96; PULSE 64–99; RESP 17–18; TEMP 96–97.1; O2SAT 95–99
[2016-04-29] MEDS: ZOLPIDEM TARTRATE 5 MG TAB PO PRN (00:56)
[2016-04-29] MEDS: HEPARIN SODIUM - SQ 10,000 UNITS/ML VIAL SQ SCH ×3 (00:57→15:30)
[2016-04-29] MEDS: SODIUM CHLORIDE 0.9% FLUSH 5 ML FLUSH IVF SCH ×2 (08:35→21:31)
[2016-04-29] MEDS: ASPIRIN 325 MG TAB PO SCH (08:35)
[2016-04-29] MEDS: LACTATED RINGER'S 1000 ML IV SCH (08:59)
[2016-04-29] MEDS ORDERED: CALAMINE LOTION 180 APPLIC/180 ML BTL TOPICAL PRN (13:00)
[2016-04-29] MEDS ORDERED: diphenhydrAMINE HCL 25 MG CAP PO PRN (13:00)
[2016-04-29] MEDS ORDERED: PILL SPLITTER OTHER PRN (14:00)
[2016-04-29] MEDS: LORATADINE 10 MG TAB PO SCH (14:21)
--- NOTE | 2016-04-29 15:03 | HHI.PR ---
Subjective Remarks Follow-up CVA. She is doing okay except for new onset pruritic rash in her chest and back. No respiratory compromise. Denies using new soap, detergent and medications other than prescribed in the hospital Objective Vitals Vital Signs Date Time Temp Pulse Resp B/P Pulse Ox O2 Delivery O2 Flow Rate FiO2 04/29/16 12:00 96.5 77 18 127/88 95 04/29/16 08:00 96.0 64 18 133/91 96 04/29/16 04:00 96.9 73 18 97/69 97 04/29/16 00:00 96.2 69 18 120/76 99 04/28/16 20:00 98.6 74 16 137/86 98 04/28/16 18:14 78 04/28/16 16:00 96.2 68 18 114/76 98 I/O 04/28/16 04/28/16 04/28/16 04/29/16 04/29/16 04/29/16 07:00 15:00 23:00 07:00 15:00 23:00 Intake Total 480 ml 1200 ml 480 ml 240 ml Balance 480 ml 1200 ml 480 ml 240 ml Intake Oral 480 ml 1200 ml 480 ml 240 ml IV Total 0 ml # Voids 1 5 4 3 # Bowel Movements 0 1 1 0 Result Diagram: 04/26/16 0730 04/26/16 0730 Imaging Last 48 hours Impressions Brain MRI 04/28/16 0000 Signed Impressions: Service Date/Time: Thursday, April 28, 2016 18:08 - CONCLUSION: 1. Resolving small infarct in the left parieto-occipital region. No acute infarct identified. Larry Mohr MD Objective Remarks GENERAL: Well-developed, well-nourished in no distress SKIN: Warm and dry. Macular papular rash in the anterior chest, abdomen and back HEAD: Atraumatic. Normocephalic. EYES: Pupils equal and round. No scleral icterus. No injection or drainage. ENT: No nasal bleeding or discharge. Mucous membranes pink and moist. NECK: Trachea midline. No JVD. CARDIOVASCULAR: Regular rate and rhythm. RESPIRATORY: No accessory muscle use. Clear to auscultation. Breath sounds equal bilaterally. GASTROINTESTINAL: Abdomen soft, non-tender, nondistended. MUSCULOSKELETAL: Extremities without clubbing, cyanosis, or edema. No obvious deformities. NEUROLOGICAL: Awake and alert. No obvious cranial nerve deficits. Motor grossly within normal limits. Five out of 5 muscle strength in the arms and legs. Normal speech. PSYCHIATRIC: Appropriate mood and affect; insight and judgment normal. Procedures none A/P Problem List: (1) CVA (cerebral vascular accident) ICD Code: I63.9 Status: Acute (2) Transient visual loss, left eye ICD Code: H53.122 Status: Resolved (3) Carotid stenosis ICD Code: I65.29 Status: Chronic (4) Hyperlipidemia ICD Code: E78.5 Status: Acute (5) Hyperglycemia ICD Code: R73.9 Status: Acute (6) Impaired fasting glucose ICD Code: R73.01 Status: Acute Assessment and Plan (1) CVA (cerebral vascular accident) Plan: Patient admitted to the medical floor. MRI of the brain showed left occipital ischemic stroke. 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 MRI of the neck showed severe left proximal ICA stenosis. Vascular surgery consulted, recommended CTA of the neck which showed 12 mL long high-grade, hemodynamically significant stenosis of the proximal left internal carotid artery. Patent right carotid system. Vertebrals within normal limits. Continue aspirin and statin Neurology following 2 D echo ----> ef 55 to 60 %, possible PFO. Venous extremity dopplers w/o dvt. Consult cardiology for TIFFANY which showed PFO. Repeat MRI showed resolving stroke and neurology has cleared patient for PFO closure followed by CEA (2) Transient visual loss, left eye Plan: Possibly due to TIAs and related to left occipital ischemic stroke. Management as above. (3) Carotid stenosis Plan: Vascular surgery consulted. Neck CTA shows high-grade stenosis. Plan is to perform endarterectomy next week (4) Hyperlipidemia Plan: Patient had a lipid profile with an elevated total cholesterol of 269, LDL cholesterol of 183, HDL, triglycerides 119. Continue statin. (5) Hyperglycemia Plan: Patient has had couple blood sugars above 120 with the last one being in the high 170s. The patient refused insulin coverage. Continue necessary with insulin coverage. 04/25/16 hemoglobin A1C 5.9 patient has impaired fating glucose tolerance. see above. DVT prophylaxis: Teds, heparin subcutaneous. Discharge Planning Not ready for discharge Problem Qualifiers (1) CVA (cerebral vascular accident): (2) Carotid stenosis: Qualified Code: I65.22 - Stenosis of left carotid artery William Rosen MD Apr 29, 2016 15:03 William Rosen MD Apr 29, 2016 15:03
--- NOTE | 2016-04-29 16:50 | PD.VS.PN ---
Subjective Subjective/Hospital Course No new TIA symptoms. But complains of new rash over abdomen back. Objective Vitals/I&O Date Time Temp Pulse Resp B/P Pulse Ox O2 Delivery O2 Flow Rate FiO2 04/29/16 12:00 96.5 77 18 127/88 95 04/29/16 08:00 96.0 64 18 133/91 96 04/29/16 04:00 96.9 73 18 97/69 97 04/29/16 00:00 96.2 69 18 120/76 99 04/28/16 20:00 98.6 74 16 137/86 98 04/28/16 18:14 78 04/29/16 04/29/16 04/29/16 07:00 15:00 23:00 Intake Total 240 ml Balance 240 ml Physical Exam [id number] intact Motor and sensory intact bilateral upper and lower extremities. Imaging Last 48 hours Impressions Brain MRI 04/28/16 0000 Signed Impressions: Service Date/Time: Thursday, April 28, 2016 18:08 - CONCLUSION: 1. Resolving small infarct in the left parieto-occipital region. No acute infarct identified. Larry Mohr MD Assessment and Plan Assessment: (1) Transient visual loss, left eye Status: Resolved (2) CVA (cerebral vascular accident) Status: Acute (3) Carotid stenosis Status: Chronic Plan This is a 60 year old female who presented with a left sided posterior circulation CVA. She also has a left sided high grade carotid stenosis. Presently asymptomatic since hospitalized on antiplatelet and anticoagulation tx. Spoke with cardiology, plan for intervention for PFO next sunday. Left CEA later next week ( most likely) while patient in hospital. Will be giving anticoagulation at time of carotid endarterectomy. Repeat MRI showed resolving infarct. Neurology agrees with plan for left CEA next week. Will continue to follow Panchito Morton DO FACS [facility] of Vascular Surgery /[place] Problem Qualifiers (1) CVA (cerebral vascular accident): (2) Carotid stenosis: Qualified Code: I65.22 - Stenosis of left carotid artery Panchito Morton DO Apr 29, 2016 16:50
[2016-04-29] MEDS: hydrOXYzine HCL 25 MG TAB PO PRN (17:22)
[2016-04-29] MEDS: PRAVASTATIN SOD 40 MG TAB PO SCH (21:31)
[2016-04-30] VITALS (7 sets, daily range): BP systolic 120–151; BP diastolic 81–95; PULSE 78–99; RESP 16–18; TEMP 95.5–97.3; O2SAT 96–100
[2016-04-30] MEDS: ZOLPIDEM TARTRATE 5 MG TAB PO PRN (00:05)
[2016-04-30] MEDS: HEPARIN SODIUM - SQ 10,000 UNITS/ML VIAL SQ SCH ×3 (00:06→16:00)
[2016-04-30] MEDS: hydrOXYzine HCL 25 MG TAB PO PRN ×3 (03:54→19:07)
[2016-04-30] MEDS ORDERED: diphenhydrAMINE HCL 50 MG/ML VIAL IV PUSH ONE (04:00)
[2016-04-30] MEDS ORDERED: diphenhydrAMINE HCL 50 MG/ML VIAL IM PRN (06:00)
[2016-04-30] MEDS: SODIUM CHLORIDE 0.9% FLUSH 5 ML FLUSH IVF SCH ×2 (10:39→23:37)
[2016-04-30] MEDS: ASPIRIN 325 MG TAB PO SCH (10:39)
--- NOTE | 2016-04-30 10:56 | HHI.PR ---
Subjective Remarks Follow-up dermatitis. She is miserable complaining of increased rash affecting entire body. Denies shortness of breath. New Medications are Pravachol, Ambien and subcutaneous heparin. Discussed with RN Objective Vitals Vital Signs Date Time Temp Pulse Resp B/P Pulse Ox O2 Delivery O2 Flow Rate FiO2 04/30/16 08:00 95.5 85 18 122/89 100 04/30/16 04:59 96.0 85 16 135/87 97 04/30/16 00:49 96.0 78 16 121/81 98 04/29/16 20:54 96.0 78 17 140/83 97 04/29/16 18:04 97.1 76 18 141/96 04/29/16 16:00 97.1 99 18 99 04/29/16 12:00 96.5 77 18 127/88 95 I/O 04/29/16 04/29/16 04/29/16 04/30/16 04/30/16 04/30/16 07:00 15:00 23:00 07:00 15:00 23:00 Intake Total 240 ml 960 ml 720 ml 360 ml Balance 240 ml 960 ml 720 ml 360 ml Intake Oral 240 ml 960 ml 720 ml 360 ml # Voids 3 7 3 2 # Bowel Movements 0 1 1 0 Result Diagram: 04/26/1630 04/26/16 0730 Objective Remarks GENERAL: Well-developed, well-nourished in distress SKIN: Warm and dry. Papular rash body mainly in the back, anterior chest and abdomen with hives HEAD: Atraumatic. Normocephalic. EYES: Pupils equal and round. No scleral icterus. No injection or drainage. ENT: No nasal bleeding or discharge. Mucous membranes pink and moist. NECK: Trachea midline. No JVD. CARDIOVASCULAR: Regular rate and rhythm. RESPIRATORY: No accessory muscle use. Clear to auscultation. Breath sounds equal bilaterally. GASTROINTESTINAL: Abdomen soft, non-tender, nondistended. MUSCULOSKELETAL: Extremities without clubbing, cyanosis, or edema. No obvious deformities. NEUROLOGICAL: Awake and alert. No obvious cranial nerve deficits. Motor grossly within normal limits. Five out of 5 muscle strength in the arms and legs. Normal speech. PSYCHIATRIC: Appropriate mood and affect; insight and judgment normal. Procedures none A/P Problem List: (1) CVA (cerebral vascular accident) ICD Code: I63.9 Status: Acute (2) Transient visual loss, left eye ICD Code: H53.122 Status: Resolved (3) Carotid stenosis ICD Code: I65.29 Status: Chronic (4) Hyperlipidemia ICD Code: E78.5 Status: Acute (5) Hyperglycemia ICD Code: R73.9 Status: Acute (6) Impaired fasting glucose ICD Code: R73.01 Status: Acute Assessment and Plan (1) CVA (cerebral vascular accident) Plan: Patient admitted to the medical floor. MRI of the brain showed left occipital ischemic stroke. 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 MRI of the neck showed severe left proximal ICA stenosis. Vascular surgery consulted, recommended CTA of the neck which showed 12 mL long high-grade, hemodynamically significant stenosis of the proximal left internal carotid artery. Patent right carotid system. Vertebrals within normal limits. Continue aspirin and statin Neurology following 2 D echo ----> ef 55 to 60 %, possible PFO. Venous extremity dopplers w/o dvt. Consult cardiology for TIFFANY which showed PFO. Repeat MRI showed resolving stroke and neurology has cleared patient for PFO closure followed by CEA (2) Transient visual loss, left eye Plan: Possibly due to TIAs and related to left occipital ischemic stroke. Management as above. (3) Carotid stenosis Plan: Vascular surgery consulted. Neck CTA shows high-grade stenosis. Plan is to perform endarterectomy next week (4) Hyperlipidemia Plan: Patient had a lipid profile with an elevated total cholesterol of 269, LDL cholesterol of 183, HDL, triglycerides 119. Continue statin. (5) Hyperglycemia Plan: Patient has had couple blood sugars above 120 with the last one being in the high 170s. The patient refused insulin coverage. Continue necessary with insulin coverage. 04/25/16 hemoglobin A1C 5.9 patient has impaired fating glucose tolerance. see above. Allergic dermatitis (new medications Ambien, heparin and Pravachol) . No respiratory compromise. Switch to IV Benadryl for 24 hours and add IV Solu- Medrol. Continue Claritin and topical calamine. Continue to monitor. Will alert cardiology DVT prophylaxis: Teds, heparin subcutaneous. Discharge Planning Not ready for discharge Problem Qualifiers (1) CVA (cerebral vascular accident): (2) Carotid stenosis: Qualified Code: I65.22 - Stenosis of left carotid artery William Rosen MD Apr 30, 2016 10:56
[2016-04-30] MEDS ORDERED: diphenhydrAMINE HCL 50 MG/ML VIAL IV PRN (12:00)
[2016-04-30 12:06] LABS: AUTOMATED NEUTROPHIL # 6.2 TH/MM3 (1.8-7.7); BASOPHIL % 0.2 % (0.0-2.0); EOSINOPHIL # 0.3 TH/MM3 (0-0.4); EOSINOPHIL % 3.2 % (0.0-4.0); HEMATOCRIT 46.3 % (35.0-46.0); HEMO FLAGS DIFF FINAL; LYMPH % 19.4 % (9.0-44.0); LYMPHOCYTE # 1.7 TH/MM3 (1.0-4.8); MEAN CELL VOLUME 87.4 FL (80.0-100.0); MEAN CORPUSCULAR HEMOGLOBIN 30.1 PG (27.0-34.0); MEAN CORPUSCULAR HGB CONC 34.4 % (32.0-36.0); MONO % 5.7 % (0.0-8.0); NEUT % 71.5 % (16.0-70.0); PLATELET COUNT 297 TH/MM3 (150-450); RED BLOOD COUNT 5.29 MIL/MM3 (4.00-5.30); WHITE BLOOD COUNT 8.7 TH/MM3 (4.0-11.0)
[2016-04-30 12:26] LABS: BICARBONATE 23.9 MEQ/L (21.0-32.0); MAGNESIUM 2.1 MG/DL (1.5-2.5); POTASSIUM 3.3 MEQ/L (3.5-5.1)
[2016-04-30] MEDS ORDERED: POTASSIUM CHLORIDE 10 MEQ CONTROLLED RELEASE TAB PO ONE (14:15)
[2016-04-30] MEDS: diphenhydrAMINE HCL 50 MG CAP PO SCH ×3 (14:19→23:37)
[2016-04-30] MEDS: LORATADINE 10 MG TAB PO SCH (14:19)
[2016-04-30] MEDS: methylPREDNISolone SOD SUCC 40 MG/1 ML VIAL IV PUSH SCH ×3 (14:21→23:37)
--- NOTE | 2016-04-30 18:15 | PD.CARD.PN ---
Objective Vital Signs / I&O Physical Exam Assessment and Plan Problem List: (1) CVA (cerebral vascular accident) (2) Hyperlipidemia Assessment and Plan Due to rash PFO closure procedure will be delayed Now tenatively planned for NPO p [place] Sunday Problem Qualifiers (1) CVA (cerebral vascular accident): Quentin Poole MD Apr 30, 2016 18:15
[2016-05-01 00:48] VITALS: BP 127/82; PULSE 79; RESP 18; TEMP 96; O2SAT 95
[2016-05-01 04:40] VITALS: BP 125/81; PULSE 87; RESP 17; TEMP 96; O2SAT 95
[2016-05-01] MEDS: methylPREDNISolone SOD SUCC 40 MG/1 ML VIAL IV PUSH SCH ×2 (05:55→12:26)
[2016-05-01] MEDS: diphenhydrAMINE HCL 50 MG CAP PO SCH ×4 (05:55→22:47)
[2016-05-01 07:50] VITALS: BP 113/78; PULSE 87; RESP 18; TEMP 96; O2SAT 96
--- NOTE | 2016-05-01 08:55 | PD.CARD.PN ---
Subjective Subjective Remarks no chest pain no neurologic complaints rash improving with steroids Objective Medications Active Medications Diphenhydramine HCl (Benadryl Inj) 25 mg Q6H PRN IV; Start 04/30/16 at 12:00 Diphenhydramine HCl (Benadryl) 50 mg Q6H PO Last administered on 05/01/16 05:55 ; Admin Dose 50 MG; Start 04/30/16 at 11:00; Stop 05/02/16 at 10:59 Methylprednisolone Sodium Succinate (SoluMEDROL INJ) 40 mg Q6HR IV PUSH Last administered on 05/01/16 05:55; Admin Dose 40 MG; Start 04/30/16 at 12:00 Potassium Chloride (KCl) 30 meq ONCE ONCE PO Last administered on 04/30/16 14: 27; Admin Dose 30 MEQ; Start 04/30/16 at 14:15; Stop 04/30/16 at 14:16; Status DC Vital Signs / I&O Vital Signs Date Time Temp Pulse Resp B/P Pulse Ox O2 Delivery O2 Flow Rate FiO2 05/01/16 07:50 96.0 87 18 113/78 96 05/01/16 04:40 96.0 87 17 125/81 95 05/01/16 00:48 96.0 79 18 127/82 95 04/30/16 20:46 96.8 96 17 120/82 96 04/30/16 20:00 99 04/30/16 16:00 96.7 93 18 151/95 97 04/30/16 12:00 97.3 88 18 130/83 96 I/O 04/30/16 04/30/16 04/30/16 05/01/16 05/01/16 05/01/16 07:00 15:00 23:00 07:00 15:00 23:00 Intake Total 360 ml 960 ml 240 ml 720 ml Balance 360 ml 960 ml 240 ml 720 ml Intake Oral 360 ml 960 ml 240 ml 720 ml # Voids 2 5 2 4 # Bowel Movements 0 1 0 1 Physical Exam GENERAL: SKIN: Warm and dry. HEAD: Normocephalic. EYES: No scleral icterus. No injection or drainage. NECK: Supple, trachea midline. No JVD or lymphadenopathy. CARDIOVASCULAR: Regular rate and rhythm without murmurs, gallops, or rubs. RESPIRATORY: Breath sounds equal bilaterally. No accessory muscle use. GASTROINTESTINAL: Abdomen soft, non-tender, nondistended. MUSCULOSKELETAL: No cyanosis, or edema. BACK: Nontender without obvious deformity. No CVA tenderness. Laboratory Laboratory Tests Test 04/30/16 11:19 White Blood Count 8.7 TH/MM3 Red Blood Count 5.29 MIL/MM3 Hemoglobin 15.9 GM/DL Hematocrit 46.3 % Mean Corpuscular Volume 87.4 FL Mean Corpuscular Hemoglobin 30.1 PG Mean Corpuscular Hemoglobin 34.4 % Concent Red Cell Distribution Width 13.0 % Platelet Count 297 TH/MM3 Mean Platelet Volume 7.1 FL Neutrophils (%) (Auto) 71.5 % Lymphocytes (%) (Auto) 19.4 % Monocytes (%) (Auto) 5.7 % Eosinophils (%) (Auto) 3.2 % Basophils (%) (Auto) 0.2 % Neutrophils # (Auto) 6.2 TH/MM3 Lymphocytes # (Auto) 1.7 TH/MM3 Monocytes # (Auto) 0.5 TH/MM3 Eosinophils # (Auto) 0.3 TH/MM3 Basophils # (Auto) 0.0 TH/MM3 CBC Comment DIFF FINAL Differential Comment Sodium Level 139 MEQ/L Potassium Level 3.3 MEQ/L Chloride Level 105 MEQ/L Carbon Dioxide Level 23.9 MEQ/L Anion Gap 10 MEQ/L Blood Urea Nitrogen 14 MG/DL Creatinine 0.66 MG/DL Estimat Glomerular Filtration 91 ML/MIN Rate Random Glucose 132 MG/DL Calcium Level 9.3 MG/DL Magnesium Level 2.1 MG/DL Assessment and Plan Problem List: (1) CVA (cerebral vascular accident) (2) Hyperlipidemia Assessment and Plan TIA + PFO with R -> L shunt. plan for endovascular closure tomorrow rash - improving with steroids. Probable drug rash. statin or ambien are the most likely culprits (both discontinued). NPO p [place] Problem Qualifiers (1) CVA (cerebral vascular accident): Quentin Poole MD May 01, 2016 08:55
[2016-05-01] MEDS: SODIUM CHLORIDE 0.9% FLUSH 5 ML FLUSH IVF SCH ×2 (09:32→22:48)
[2016-05-01] MEDS: ASPIRIN 325 MG TAB PO SCH (09:32)
[2016-05-01 12:00] VITALS: BP 134/85; PULSE 100; RESP 18; TEMP 96.2; O2SAT 96
[2016-05-01] MEDS: LORATADINE 10 MG TAB PO SCH (14:23)
[2016-05-01] MEDS: hydrOXYzine HCL 25 MG TAB PO PRN (14:23)
--- NOTE | 2016-05-01 14:29 | HHI.PR ---
Subjective Remarks Follow up for CVA, dermatitis. The patient reports her rash has improved today, itching improved, getting some relief with po benadryl and IV steroids. Continues to deny SOB, tongue/facial swelling. She complains of anxiety over the past 2 days and unable to sleep. She states the medications are not helping , currently receiving Atarax and benadryl. Plan to go for PFO repair tomorrow. Objective Vitals Vital Signs Date Time Temp Pulse Resp B/P Pulse Ox O2 Delivery O2 Flow Rate FiO2 05/01/16 12:00 96.2 100 18 134/85 96 05/01/16 07:50 96.0 87 18 113/78 96 05/01/16 04:40 96.0 87 17 125/81 95 05/01/16 00:48 96.0 79 18 127/82 95 04/30/16 20:46 96.8 96 17 120/82 96 04/30/16 20:00 99 04/30/16 16:00 96.7 93 18 151/95 97 I/O 04/30/16 04/30/16 04/30/16 05/01/16 05/01/16 05/01/16 07:00 15:00 23:00 07:00 15:00 23:00 Intake Total 360 ml 960 ml 240 ml 720 ml Balance 360 ml 960 ml 240 ml 720 ml Intake Oral 360 ml 960 ml 240 ml 720 ml # Voids 2 5 2 4 # Bowel Movements 0 1 0 1 Result Diagram: 04/30/16 1119 04/30/16 1119 Imaging Last Impressions Brain MRI 04/28/16 0000 Signed Impressions: Service Date/Time: Thursday, April 28, 2016 18:08 - CONCLUSION: 1. Resolving small infarct in the left parieto-occipital region. No acute infarct identified. Larry Mohr MD Lower Extremity Ultrasound 04/26/16 0000 Signed Impressions: Service Date/Time: Tuesday, April 26, 2016 08:37 - CONCLUSION: Negative for deep venous thrombosis. Philip Cee MD FACR Neck Magnetic Resonance Angiography 04/23/16 0000 Signed Impressions: Service Date/Time: Saturday, April 23, 2016 12:05 - CONCLUSION: Severe left proximal ICA stenosis. Mayo Zeng MD Neck CTA 04/23/16 0000 Signed Impressions: Service Date/Time: Saturday, April 23, 2016 15:21 - CONCLUSION: 1. 12 mm long high grade, hemodynamically significant stenosis of the proximal left internal carotid artery. 2. Patent right carotid system. 3. Vertebrals within normal limits. Molina Salinas MD Head Magnetic Resonance Angiography 04/23/16 0000 Signed Impressions: Service Date/Time: Saturday, April 23, 2016 12:05 - CONCLUSION: 1. Fenestration of the basilar artery proximally otherwise unremarkable. Mayo Zeng MD Carotid Artery Ultrasound 04/23/16 0000 Signed Impressions: Service Date/Time: Saturday, April 23, 2016 17:37 - CONCLUSION: 1. High-grade , hemodynamically significant stenosis of the proximal left internal carotid artery. 2. Mild plaque of the right carotid bifurcation without hemodynamically significant narrowing. Molina Salinas MD Objective Remarks GENERAL: Well-nourished, well-developed female patient in [facility]. SKIN: Warm and dry. Macular rash throughout chest, abdomen, and back, overall improving; hives resolved. HEAD: Normocephalic. Atraumatic. EYES: Pupils equal and round. No scleral icterus. No injection or drainage. ENT: No nasal bleeding or discharge. Mucous membranes pink and moist. NECK: Supple. Trachea midline. CARDIOVASCULAR: Regular rate and rhythm. S1, S2 noted. No murmur appreciated. RESPIRATORY: No accessory muscle use. Clear to auscultation. Breath sounds equal bilaterally. GASTROINTESTINAL: Abdomen soft, non-tender, nondistended. Normoactive bowel sounds x4. MUSCULOSKELETAL: No obvious deformities. Extremities without clubbing, cyanosis , or edema. NEUROLOGICAL: Awake and alert. No obvious cranial nerve deficits. Motor grossly within normal limits. 5/5 muscle strength in bilateral upper and lower extremities. Normal speech. PSYCHIATRIC: Appropriate mood and affect; insight and judgment normal. Procedures none Medications and IVs Current Medications Medications (Trade) Dose Ordered Sig/Adrien Route Start Time Stop Time Status Last Admin (NS Flush) 2 ml BID IVF 04/23/16 21:00 05/01/16 09:32 (NS Flush) 2 ml UNSCH PRN IVF 04/23/16 14:45 (Vasotec Inj) 1.25 mg Q4H PRN IV 04/23/16 14:45 (Aspirin) 325 mg DAILY PO 04/24/16 09:00 05/01/16 09:32 (Calamine Lotion) 1 applic Q6H PRN TOPICAL 04/29/16 13:00 04/29/16 17:22 (Claritin) 5 mg DAILY@14 PO 04/29/16 14:00 04/30/16 14:19 (Pill Splitter) 1 ea UNSCH PRN OTHER 04/29/16 14:00 04/30/16 14:25 (Atarax) 25 mg Q6H PRN PO 04/29/16 17:15 04/30/16 19:07 (Benadryl Inj) 25 mg Q6H PRN IV 04/30/16 12:00 (Benadryl) 50 mg Q6H PO 04/30/16 11:00 05/02/16 10:59 05/01/16 12:26 (SoluMEDROL INJ) 40 mg Q6HR IV PUSH 04/30/16 12:00 05/01/16 12:26 Urinary Catheter: No A/P Problem List: (1) CVA (cerebral vascular accident) ICD Code: I63.9 Status: Acute (2) Transient visual loss, left eye ICD Code: H53.122 Status: Resolved (3) Carotid stenosis ICD Code: I65.29 Status: Chronic (4) Hyperlipidemia ICD Code: E78.5 Status: Acute (5) Hyperglycemia ICD Code: R73.9 Status: Acute (6) Impaired fasting glucose ICD Code: R73.01 Status: Acute Assessment and Plan 60-year-old female with no significant PMH, does not follow with PCP, presents with acute onset of left visual changes CVA - Left Occipital Ischemic Stroke: MRI brain showed left occipital ischemic stroke. 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 MRI neck showed severe left proximal ICA stenosis, see below. Continue aspirin/statin. Neurology following. 2D echo showed EF 55-60%, possible PFO, see below. Doppler U/S b/l lower extremities negative for DVT. Repeat MRI showed resolving stroke and neurology has cleared patient for PFO closure followed by CEA. PT/OT consulted, no PT needed at discharge. PFO: seen on echo as above. Cardiology consulted, TIFFANY done which showed PFO with R to L shunt. Plan for endovascular closure tomorrow 05/02. Left Carotid Stenosis: Seen on neck MRI as above. Vascular surgery consulted, recommended CTA of the neck which showed 12 mL long high-grade, hemodynamically significant stenosis of the proximal left internal carotid artery; Patent right carotid system; Vertebrals within normal limits. On aspirin and statin. Transient visual loss, left eye. Suspect due to recurrent TIAs and left occipital ischemic stroke. Management as above. Hyperlipidemia: Patient had a lipid profile with an elevated total cholesterol of 269, LDL cholesterol of 183, HDL, triglycerides 119. Continue statin. Hyperglycemia: Patient has had couple blood sugars above 120 with the last one being in the high 170s. Patient refused insulin coverage. Continue Accu-Checks with insulin coverage. HgbA1c 5.9, patient has impaired fating glucose tolerance. Allergic dermatitis: (new medications Ambien, heparin and Pravachol) . No respiratory compromise. Scheduled po benadryl 50mg po q6h and given IV Benadryl prn severe itching. Given IV Solumedrol 40mg q6h, now change to po prednisone 40mg bid with plan to taper. Continue Claritin and topical calamine. Rash improving. Continue to monitor. Anxiety: likely related to hospitalization. Not on anxiolytics as outpatient. Continue Atarax prn. Also on benadryl which should help. Consider adjusting atarax dose if continued anxiety. DVT prophylaxis: Teds, heparin subcutaneous. Written by Geri Puckett, acting as scribe for Dr. Rosen on 05/01/16 at 13:50. The documentation accurately reflects the work performed [id number] by me on at 1350 Problem Qualifiers (1) CVA (cerebral vascular accident): (2) Carotid stenosis: Qualified Code: I65.22 - Stenosis of left carotid artery Geri Puckett PA-C May 01, 2016 14:29 William Rosen MD May 01, 2016 16:57
[2016-05-01 16:00] VITALS: BP_SYST 148; BP_SYST 152; BP_DIAS 70; BP_DIAS 82; PULSE 105; PULSE 81; RESP 18; TEMP 95.8; TEMP 96; O2SAT 93; O2SAT 96
[2016-05-01 20:00] VITALS: BP 136/70; PULSE 93; RESP 18; TEMP 97; O2SAT 95
[2016-05-01] MEDS ORDERED: predniSONE 20 MG TAB PO SCH (21:00)
[2016-05-01] MEDS: ALPRAZolam 0.25 MG TAB PO PRN (22:47)
[2016-05-02] VITALS (9 sets, daily range): BP systolic 106–160; BP diastolic 61–90; PULSE 76–95; RESP 16–20; TEMP 96.8–97.9; O2SAT 96–99
[2016-05-02] MEDS: diphenhydrAMINE HCL 50 MG CAP PO SCH (05:00)
--- NOTE | 2016-05-02 07:59 | HHI.PR ---
Subjective Remarks Follow-up dermatitis. Improved pruritus. States IV steroids keep her awake. Discussed with RN Objective Vitals Vital Signs Date Time Temp Pulse Resp B/P Pulse Ox O2 Delivery O2 Flow Rate FiO2 05/02/16 04:00 96.9 76 18 106/67 98 05/02/16 00:00 96.9 77 18 114/66 96 05/01/16 20:00 97.0 93 18 136/70 95 05/01/16 16:00 96.0 105 18 148/82 96 05/01/16 12:00 96.2 100 18 134/85 96 I/O 05/01/16 05/01/16 05/01/16 05/02/16 05/02/16 05/02/16 07:00 15:00 23:00 07:00 15:00 23:00 Intake Total 720 ml 620 ml 480 ml Balance 720 ml 620 ml 480 ml Intake Oral 720 ml 620 ml 480 ml # Voids 4 5 2 1 # Bowel Movements 1 1 Result Diagram: 04/30/16 1119 04/30/16 1119 Objective Remarks GENERAL: Well-developed, well-nourished in distress SKIN: Warm and dry. Improving Papular rash body mainly in the back, anterior chest and abdomen with hives HEAD: Atraumatic. Normocephalic. EYES: Pupils equal and round. No scleral icterus. No injection or drainage. ENT: No nasal bleeding or discharge. Mucous membranes pink and moist. NECK: Trachea midline. No JVD. CARDIOVASCULAR: Regular rate and rhythm. RESPIRATORY: No accessory muscle use. Clear to auscultation. Breath sounds equal bilaterally. GASTROINTESTINAL: Abdomen soft, non-tender, nondistended. MUSCULOSKELETAL: Extremities without clubbing, cyanosis, or edema. No obvious deformities. NEUROLOGICAL: Awake and alert. No obvious cranial nerve deficits. Motor grossly within normal limits. Five out of 5 muscle strength in the arms and legs. Normal speech. PSYCHIATRIC: Appropriate mood and affect; insight and judgment normal. Procedures none A/P Problem List: (1) CVA (cerebral vascular accident) ICD Code: I63.9 Status: Acute (2) Transient visual loss, left eye ICD Code: H53.122 Status: Resolved (3) Carotid stenosis ICD Code: I65.29 Status: Chronic (4) Hyperlipidemia ICD Code: E78.5 Status: Acute (5) Hyperglycemia ICD Code: R73.9 Status: Acute (6) Impaired fasting glucose ICD Code: R73.01 Status: Acute Assessment and Plan 60-year-old female with no significant PMH, does not follow with PCP, presents with acute onset of left visual changes CVA - Left Occipital Ischemic Stroke: MRI brain showed left occipital ischemic stroke. 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 MRI neck showed severe left proximal ICA stenosis, see below. Continue aspirin/statin. Neurology following. 2D echo showed EF 55-60%, possible PFO, see below. Doppler U/S b/l lower extremities negative for DVT. Repeat MRI showed resolving stroke and neurology has cleared patient for PFO closure followed by CEA. PT/OT consulted, no PT needed at discharge. PFO: seen on echo as above. Cardiology consulted, TIFFANY done which showed PFO with R to L shunt. Plan for endovascular closure tomorrow 05/02. Left Carotid Stenosis: Seen on neck MRI as above. Vascular surgery consulted, recommended CTA of the neck which showed 12 mL long high-grade, hemodynamically significant stenosis of the proximal left internal carotid artery; Patent right carotid system; Vertebrals within normal limits. On aspirin and statin. Transient visual loss, left eye. Suspect due to recurrent TIAs and left occipital ischemic stroke. Management as above. Hyperlipidemia: Patient had a lipid profile with an elevated total cholesterol of 269, LDL cholesterol of 183, HDL, triglycerides 119. Continue statin. Hyperglycemia: Patient has had couple blood sugars above 120 with the last one being in the high 170s. Patient refused insulin coverage. Continue Accu-Checks with insulin coverage. HgbA1c 5.9, patient has impaired fating glucose tolerance. Allergic dermatitis: (new medications Ambien, heparin and Pravachol) . No respiratory compromise. Scheduled po benadryl 50mg po q6h and given IV Benadryl prn severe itching. Given IV Solumedrol 40mg q6h, now change to po prednisone 40mg bid with plan to taper. Continue Claritin and topical calamine. Rash improving. Continue to monitor. Anxiety: likely related to hospitalization. Not on anxiolytics as outpatient. Continue Atarax prn. Also on benadryl which should help. Consider adjusting atarax dose if continued anxiety. DVT prophylaxis: Teds, heparin subcutaneous. Written by Geri Puckett, acting as scribe for Dr. Rosen on 05/01/16 at 13:50. The documentation accurately reflects the work performed [id number] by me on at 1350 Discharge Planning Not ready for discharge Problem Qualifiers (1) CVA (cerebral vascular accident): (2) Carotid stenosis: Qualified Code: I65.22 - Stenosis of left carotid artery William Rosen MD May 02, 2016 07:59
[2016-05-02] MEDS ORDERED: MIDAZOLAM HCL 2 MG/2 ML VIAL ONE (08:34)
[2016-05-02] MEDS ORDERED: HEPARIN-NS/PF INJ 500 ML ONE ×2 (08:34→08:53)
[2016-05-02] MEDS ORDERED: HEPARIN SODIUM - IV 10,000 UNITS/10 ML VIAL ONE (08:35)
[2016-05-02] MEDS: SODIUM CHLORIDE 0.9% FLUSH 5 ML FLUSH IVF SCH (09:00)
[2016-05-02] MEDS: predniSONE 20 MG TAB PO SCH (09:00)
[2016-05-02] MEDS: ASPIRIN 325 MG TAB PO SCH (09:00)
[2016-05-02] MEDS ORDERED: MISC INFORMATION XX ONE (10:15)
[2016-05-02] MEDS ORDERED: SODIUM CHLOR 0.9% 250 ML INJ 250 ML IV PRN (10:15)
[2016-05-02] MEDS ORDERED: LORazepam 2 MG/ML VIAL IV PRN (10:15)
[2016-05-02] MEDS ORDERED: ATROPINE SULFATE 1 MG/ML VIAL IV PRN (10:15)
[2016-05-02] MEDS ORDERED: ONDANSETRON HCL 4 MG/2 ML VIAL IV PRN (10:15)
[2016-05-02] MEDS ORDERED: LIDOCAINE HCL 1% 50 ML VIAL INFIL PRN (10:15)
[2016-05-02] MEDS ORDERED: BACITRACIN OINT 0.9 GM PKT TOP ONE (10:15)
[2016-05-02] MEDS ORDERED: METOCLOPRAMIDE HCL 10 MG/2 ML VIAL IV PRN (10:15)
--- NOTE | 2016-05-02 10:45 | MA ---
cc: DALIA DONOHUE DATE: 05/02/2016 PROCEDURES PERFORMED 1. Fluoroscopy with interpretation. 2. Intracardiac echocardiography. 3. Right heart catheterization. 4. Attempted patent foramen ovale closure. METHOD The risks, benefits and alternatives were discussed with the patient. The patient understood and consented to the procedure. The patient was brought into the catheterization lab and was placed on the catheterization table. The right groin was prepped and draped in sterile fashion. The right groin was anesthetized with 2% lidocaine. The right femoral vein was accessed and a 10-Maltese sheath was placed in the vein. In addition, a 7-Maltese sheath was placed in the vein. RIGHT HEART CATHETERIZATION A 7-Maltese Jermyn-Chandni catheter is advanced into the right femoral venous sheath to the level of the right atrium under fluoroscopic guidance. HEMODYNAMICS 1. Right atrial pressure measured 10 mmHg. 2. Right ventricular pressure is 27/6 mmHg. 3. Pulmonary arterial pressure measured at 19/11 mmHg. 4. Pulmonary capillary wedge pressure measured at 12 mmHg. 5. Cardiac output 7.3 liters per minute. 6. Cardiac index 4.3 liters per minute/per meter squared. No oxygen step-up was noted from right atrium through to the pulmonary artery. INTRACARDIAC ECHOCARDIOGRAPHY A 10-Maltese AcuNav intracardiac echo probe was prepped and advanced through the 10-Maltese sheath up to the level of the right atrium. Intracardiac echo was then utilized to assist in visualization of the interatrial septum through the entire case. Patent foramen ovale closure A 5-Maltese multipurpose catheter was then directed towards the interatrial septum. A standard J-tip wire was unsuccessful at crossing into the intraatrial septum. We used a straight-tip 260 cm standard wire and we were able to get into the tunnel of the PFO but unable to successfully cross with the multipurpose catheter. We will also tried a 0.014 inch, 300 cm Choice PT extra-support wire to see if we could navigate into the left upper pulmonary vein but we were unsuccessful. Given the small tunnel of the PFO and inability to successfully cross without risk of perforation, we decided to abort the procedure and medically manage her. CONCLUSIONS 1. Normal right-sided filling pressures, normal cardiac output and index, successful utilization of intracardiac echocardiography. 2. Unsuccessful attempt at endovascular PFO closure secondary to small PFO tunnel. Plan: medical therapy and subsequent CEA. MD LATOYA Wang /10:23 AM /10:32 AM MTDD
[2016-05-02] MEDS: ALPRAZolam 0.25 MG TAB PO PRN (23:14)
[2016-05-02] MEDS: diphenhydrAMINE HCL 25 MG CAP PO PRN (23:14)
[2016-05-03] VITALS (23 sets, daily range): BP systolic 120–127; BP diastolic 74–90; PULSE 62–92; RESP 16–20; TEMP 97.4–98.2; O2SAT 96–98
[2016-05-03] MEDS: diphenhydrAMINE HCL 25 MG CAP PO PRN (03:16)
[2016-05-03] MEDS: ALPRAZolam 0.25 MG TAB PO PRN ×2 (07:55→20:46)
[2016-05-03] MEDS: predniSONE 20 MG TAB PO SCH (07:55)
[2016-05-03] MEDS: ASPIRIN 325 MG TAB PO SCH (07:55)
--- NOTE | 2016-05-03 08:07 | PD.CARD.PN ---
Subjective Subjective Remarks denies any CV complaints Objective Vital Signs / I&O Vital Signs Date Time Temp Pulse Resp B/P Pulse Ox O2 Delivery O2 Flow Rate FiO2 05/03/16 04:00 83 05/03/16 03:15 98.1 75 16 125/90 98 05/03/16 03:00 70 05/03/16 02:00 62 05/03/16 01:00 63 05/03/16 00:00 71 05/02/16 23:00 92 05/02/16 21:27 141/90 05/02/16 21:27 97.9 92 16 160/72 97 05/02/16 21:00 80 05/02/16 20:00 76 05/02/16 19:00 95 05/02/16 18:00 92 05/02/16 18:00 97.8 85 20 111/76 99 05/02/16 13:15 97 Room Air I/O 05/02/16 05/02/16 05/02/16 05/03/16 05/03/16 05/03/16 07:00 15:00 23:00 07:00 15:00 23:00 Intake Total 960 ml Output Total 750 ml Balance 210 ml Intake Oral 960 ml Output Urine Total 750 ml # Voids 1 Physical Exam GENERAL: Well-nourished, well-developed patient in no apparent distress. NECK: No JVD. No carotid bruit. CARDIOVASCULAR: Regular rate and rhythm. S1/S2 no murmur, rub, or gallop. RESPIRATORY: No accessory muscle use. Clear to auscultation. Breath sounds equal bilaterally. GASTROINTESTINAL: Abdomen soft, non-tender, nondistended. MUSCULOSKELETAL: Extremities without clubbing, cyanosis, or edema. Assessment and Plan Problem List: (1) CVA (cerebral vascular accident) (2) Hyperlipidemia Assessment and Plan CVA - L occipital CVA. LICA stenosis. +PFO with shunting. Small PFO unable to be close for CEA tomorrow. Problem Qualifiers (1) CVA (cerebral vascular accident): Ludin Garland May 03, 2016 08:07
[2016-05-03] MEDS: SODIUM CHLORIDE 0.9% FLUSH 5 ML FLUSH IVF SCH ×2 (09:00→20:11)
--- NOTE | 2016-05-03 13:21 | HHI.PR ---
Subjective Remarks F/u dermatitis. No SOB. Dw cardiology and vascular surgery Objective Vitals Vital Signs Date Time Temp Pulse Resp B/P Pulse Ox O2 Delivery O2 Flow Rate FiO2 05/03/16 12:00 97.4 90 18 121/74 98 05/03/16 10:00 74 05/03/16 09:00 80 05/03/16 08:00 98.0 91 18 120/85 98 05/03/16 08:00 74 05/03/16 07:00 68 05/03/16 04:00 83 05/03/16 03:15 98.1 75 16 125/90 98 05/03/16 03:00 70 05/03/16 02:00 62 05/03/16 01:00 63 05/03/16 00:00 71 05/02/16 23:00 92 05/02/16 21:27 141/90 05/02/16 21:27 97.9 92 16 160/72 97 05/02/16 21:00 80 05/02/16 20:00 76 05/02/16 19:00 95 05/02/16 18:00 92 05/02/16 18:00 97.8 85 20 111/76 99 I/O 05/02/16 05/02/16 05/02/16 05/03/16 05/03/16 05/03/16 07:00 15:00 23:00 07:00 15:00 23:00 Intake Total 960 ml Output Total 750 ml Balance 210 ml Intake Oral 960 ml Output Urine Total 750 ml # Voids 1 Result Diagram: 04/30/16 1119 04/30/16 1119 Imaging Last Impressions Brain MRI 04/28/16 0000 Signed Impressions: Service Date/Time: Thursday, April 28, 2016 18:08 - CONCLUSION: 1. Resolving small infarct in the left parieto-occipital region. No acute infarct identified. Larry Mohr MD Lower Extremity Ultrasound 04/26/16 0000 Signed Impressions: Service Date/Time: Tuesday, April 26, 2016 08:37 - CONCLUSION: Negative for deep venous thrombosis. Philip Cee MD FACR Neck Magnetic Resonance Angiography 04/23/16 0000 Signed Impressions: Service Date/Time: Saturday, April 23, 2016 12:05 - CONCLUSION: Severe left proximal ICA stenosis. Mayo Zeng MD Neck CTA 04/23/16 0000 Signed Impressions: Service Date/Time: Saturday, April 23, 2016 15:21 - CONCLUSION: 1. 12 mm long high grade, hemodynamically significant stenosis of the proximal left internal carotid artery. 2. Patent right carotid system. 3. Vertebrals within normal limits. Molina Salinas MD Head Magnetic Resonance Angiography 04/23/16 0000 Signed Impressions: Service Date/Time: Saturday, April 23, 2016 12:05 - CONCLUSION: 1. Fenestration of the basilar artery proximally otherwise unremarkable. Mayo Zeng MD Carotid Artery Ultrasound 04/23/16 0000 Signed Impressions: Service Date/Time: Saturday, April 23, 2016 17:37 - CONCLUSION: 1. High-grade , hemodynamically significant stenosis of the proximal left internal carotid artery. 2. Mild plaque of the right carotid bifurcation without hemodynamically significant narrowing. Molina Salinas MD Objective Remarks GENERAL: Well-developed, well-nourished in distress SKIN: Warm and dry. Improving Papular rash body mainly in the back, anterior chest and abdomen with hives HEAD: Atraumatic. Normocephalic. EYES: Pupils equal and round. No scleral icterus. No injection or drainage. ENT: No nasal bleeding or discharge. Mucous membranes pink and moist. NECK: Trachea midline. No JVD. CARDIOVASCULAR: Regular rate and rhythm. RESPIRATORY: No accessory muscle use. Clear to auscultation. Breath sounds equal bilaterally. GASTROINTESTINAL: Abdomen soft, non-tender, nondistended. MUSCULOSKELETAL: Extremities without clubbing, cyanosis, or edema. No obvious deformities. NEUROLOGICAL: Awake and alert. No obvious cranial nerve deficits. Motor grossly within normal limits. Five out of 5 muscle strength in the arms and legs. Normal speech. PSYCHIATRIC: Appropriate mood and affect; insight and judgment normal. Procedures none A/P Problem List: (1) CVA (cerebral vascular accident) ICD Code: I63.9 Status: Acute (2) Transient visual loss, left eye ICD Code: H53.122 Status: Resolved (3) Carotid stenosis ICD Code: I65.29 Status: Chronic (4) Hyperlipidemia ICD Code: E78.5 Status: Acute (5) Hyperglycemia ICD Code: R73.9 Status: Acute (6) Impaired fasting glucose ICD Code: R73.01 Status: Acute Assessment and Plan 60-year-old female with no significant PMH, does not follow with PCP, presents with acute onset of left visual changes CVA - Left Occipital Ischemic Stroke: MRI brain showed left occipital ischemic stroke. 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 MRI neck showed severe left proximal ICA stenosis, see below. Continue aspirin/statin. Neurology following. 2D echo showed EF 55-60%, possible PFO, see below. Doppler U/S b/l lower extremities negative for DVT. Repeat MRI showed resolving stroke and neurology has cleared patient for PFO closure followed by CEA. PT/OT consulted, no PT needed at discharge. PFO: seen on echo as above. Cardiology consulted, TIFFANY done which showed PFO with R to L shunt. Unable to do endovascular closure secondary to small size. Recommended to add Plavix which is okay by vascular surgery Left Carotid Stenosis: Seen on neck MRI as above. Vascular surgery consulted, recommended CTA of the neck which showed 12 mL long high-grade, hemodynamically significant stenosis of the proximal left internal carotid artery; Patent right carotid system; Vertebrals within normal limits. On aspirin and statin. Discussed with basilar surgery, planned for CEA she'll have to be postponed secondary to dermatitis with increased redness of infection. Transient visual loss, left eye. Suspect due to recurrent TIAs and left occipital ischemic stroke. Management as above. Hyperlipidemia: Patient had a lipid profile with an elevated total cholesterol of 269, LDL cholesterol of 183, HDL, triglycerides 119. Statin dc 2/2 drug eruptions. Consider restarting after recovery from CEA Hyperglycemia: Patient has had couple blood sugars above 120 with the last one being in the high 170s. Patient refused insulin coverage. Continue Accu-Checks with insulin coverage. HgbA1c 5.9, patient has impaired fating glucose tolerance. Allergic dermatitis: (new medications Ambien, heparin and Pravachol) . No respiratory compromise. Improving. Continue prednisone status post IV steroids and supportive treatment. Continue to monitor. Anxiety: likely related to hospitalization. Not on anxiolytics as outpatient. Continue xanax DVT prophylaxis: Teds, heparin subcutaneous. Discharge Planning Possible dc in am if CEA not done soon. Vasc surgery to reevaluate in am. Problem Qualifiers (1) CVA (cerebral vascular accident): (2) Carotid stenosis: Qualified Code: I65.22 - Stenosis of left carotid artery William Rosen MD May 03, 2016 13:21
[2016-05-03] MEDS: CLOPIDOGREL 75 MG TAB PO SCH (13:30)
[2016-05-03] MEDS: LORATADINE 10 MG TAB PO SCH ×2 (13:43→14:00)
--- NOTE | 2016-05-03 18:03 | PD.VS.PN ---
Subjective Subjective/Hospital Course No new TIA symptoms. But complains of rash over abdomen back now extending to neck and extremities. Objective Vitals/I&O Date Time Temp Pulse Resp B/P Pulse Ox O2 Delivery O2 Flow Rate FiO2 05/03/16 15:00 88 05/03/16 14:00 76 05/03/16 13:00 72 05/03/16 12:00 97.4 90 18 121/74 98 05/03/16 12:00 78 05/03/16 11:00 71 05/03/16 10:00 74 05/03/16 09:00 80 05/03/16 08:00 98.0 91 18 120/85 98 05/03/16 08:00 74 05/03/16 07:00 68 05/03/16 04:00 83 05/03/16 03:15 98.1 75 16 125/90 98 05/03/16 03:00 70 05/03/16 02:00 62 05/03/16 01:00 63 05/03/16 00:00 71 05/02/16 23:00 92 05/02/16 21:27 141/90 05/02/16 21:27 97.9 92 16 160/72 97 05/02/16 21:00 80 05/02/16 20:00 76 05/02/16 19:00 95 05/02/16 18:00 92 05/02/16 18:00 97.8 85 20 111/76 99 05/03/16 05/03/16 05/03/16 07:00 15:00 23:00 Intake Total 960 ml Output Total 750 ml Balance 210 ml Physical Exam left neck with some erythematous changes. Assessment and Plan Assessment: (1) Transient visual loss, left eye Status: Resolved (2) CVA (cerebral vascular accident) Status: Acute (3) Carotid stenosis Status: Chronic Plan This is a 60 year old female who presented with a left sided posterior circulation CVA. She also has a left sided high grade carotid stenosis. Presently asymptomatic since hospitalized on antiplatelet and anticoagulation tx. PFO to small to be corrected with an intervention. Left neck with erythema from rash. Will hold off on left CEA until rash resolving or if has crescendo TIAs. Risk of wound break down and infected carotid artery are possible, especially on steroids for pruritic rash. Will continue to follow. Should stay in hospital to allow this to resolve and for neurochecks. Panchito Morton DO FACS Dental Office Receptionist of Vascular Surgery /[place] Problem Qualifiers (1) CVA (cerebral vascular accident): (2) Carotid stenosis: Qualified Code: I65.22 - Stenosis of left carotid artery Panchito Morton DO May 03, 2016 18:03
[2016-05-03] MEDS: hydrOXYzine HCL 25 MG TAB PO PRN (22:19)
[2016-05-04] VITALS (25 sets, daily range): BP systolic 107–139; BP diastolic 72–83; PULSE 63–102; RESP 16–22; TEMP 97.6–98.4; O2SAT 95–97
[2016-05-04] MEDS: predniSONE 20 MG TAB PO SCH (08:14)
[2016-05-04] MEDS: CLOPIDOGREL 75 MG TAB PO SCH (08:14)
[2016-05-04] MEDS: SODIUM CHLORIDE 0.9% FLUSH 5 ML FLUSH IVF SCH ×2 (08:15→21:00)
[2016-05-04] MEDS: ASPIRIN 325 MG TAB PO SCH (08:15)
[2016-05-04] MEDS: ALPRAZolam 0.25 MG TAB PO PRN ×3 (08:16→22:14)
[2016-05-04] MEDS: diphenhydrAMINE HCL 25 MG CAP PO PRN ×2 (08:19→14:23)
--- NOTE | 2016-05-04 11:23 | EKG ---
Date Performed: 05/03/2016 Time Performed: 21:23:10 PTAGE: 60 years EKG: Sinus rhythm Possible inferior infarct Q waves are slightly more prominant since prior tracing Clinical correlati on needed Abnormal ECG PREVIOUS TRACING : 04/23/2016 10.52 DOCTOR: Ever Price Interpretating Date/Time 05/04/2016 11:22:47
[2016-05-04] MEDS: LORATADINE 10 MG TAB PO SCH (14:23)
--- NOTE | 2016-05-04 16:15 | HHI.PR ---
Subjective Remarks Follow-up for rash Rash on the neck better today, however is more diffuse in both lower extremities , upper extremities and thighs. No shortness of breath, no nausea, vomiting. No neurologic deficits, denies any numbness, dizziness, lightheadedness. Objective Vitals Vital Signs Date Time Temp Pulse Resp B/P Pulse Ox O2 Delivery O2 Flow Rate FiO2 05/04/16 07:00 98.0 92 17 107/78 97 05/04/16 07:00 68 05/04/16 06:00 75 05/04/16 05:00 74 05/04/16 04:30 98.0 68 20 110/78 97 05/04/16 04:00 68 05/04/16 03:01 73 05/04/16 02:00 63 05/04/16 01:00 65 05/04/16 00:00 68 05/04/16 00:00 97.9 68 20 107/72 97 05/03/16 23:00 65 05/03/16 22:00 67 05/03/16 21:00 66 05/03/16 20:00 97.9 77 20 125/78 96 05/03/16 20:00 68 05/03/16 19:00 77 05/03/16 18:00 84 05/03/16 17:00 86 I/O 05/03/16 05/03/16 05/03/16 05/04/16 05/04/16 05/04/16 07:00 15:00 23:00 07:00 15:00 23:00 Intake Total 960 ml 1320 ml 420 ml Output Total 750 ml 1700 ml Balance 210 ml -380 ml 420 ml Intake Oral 960 ml 1320 ml 420 ml Output Urine Total 750 ml 1700 ml # Voids 2 # Bowel Movements 1 Result Diagram: 04/30/16 1119 04/30/16 1119 Objective Remarks GENERAL: Well-developed, well-nourished in distress SKIN: Warm and dry. Improving Papular rash body mainly in the back, anterior chest and abdomen with hives HEAD: Atraumatic. Normocephalic. EYES: Pupils equal and round. No scleral icterus. No injection or drainage. ENT: No nasal bleeding or discharge. Mucous membranes pink and moist. NECK: Trachea midline. No JVD. No bruit appreciated CARDIOVASCULAR: Regular rate and rhythm. RESPIRATORY: No accessory muscle use. Clear to auscultation. Breath sounds equal bilaterally. GASTROINTESTINAL: Abdomen soft, non-tender, nondistended. MUSCULOSKELETAL: Extremities without clubbing, cyanosis, or edema. No obvious deformities. Diffuse maculopapular rash upper extremities, lower extremities and abdominal area. Left neck rash is improving. Pruritic. NEUROLOGICAL: Awake and alert. No obvious cranial nerve deficits. Motor grossly within normal limits. Five out of 5 muscle strength in the arms and legs. Normal speech. PSYCHIATRIC: Appropriate mood and affect; insight and judgment normal. Procedures none A/P Problem List: (1) CVA (cerebral vascular accident) ICD Code: I63.9 Status: Acute (2) Transient visual loss, left eye ICD Code: H53.122 Status: Resolved (3) Carotid stenosis ICD Code: I65.29 Status: Chronic (4) Hyperlipidemia ICD Code: E78.5 Status: Acute (5) Hyperglycemia ICD Code: R73.9 Status: Acute (6) Impaired fasting glucose ICD Code: R73.01 Status: Acute Assessment and Plan 60-year-old female with no significant PMH, does not follow with PCP, presents with acute onset of left visual changes CVA - Left Occipital Ischemic Stroke: MRI brain showed left occipital ischemic stroke. 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 MRI neck showed severe left proximal ICA stenosis, see below. Continue aspirin/statin. Neurology following. 2D echo showed EF 55-60%, possible PFO, see below. Doppler U/S b/l lower extremities negative for DVT. Repeat MRI showed resolving stroke and neurology has cleared patient for PFO closure followed by CEA. PT/OT consulted, no PT needed at discharge. For CTA per vascular surgery. PFO: seen on echo as above. Cardiology consulted, TIFFANY done which showed PFO with R to L shunt. Unable to do endovascular closure secondary to small size. Recommended to add Plavix which is okay by vascular surgery, per vascular surgery, no need to do anything for PFO. Left Carotid Stenosis: Seen on neck MRI as above. Vascular surgery consulted, recommended CTA of the neck which showed 12 mL long high-grade, hemodynamically significant stenosis of the proximal left internal carotid artery; Patent right carotid system; Vertebrals within normal limits. On aspirin and statin. Discussed with vascular surgery, planned for CEA she'll have to be postponed secondary to dermatitis with increased redness of infection. Transient visual loss, left eye. Suspect due to recurrent TIAs and left occipital ischemic stroke. Management as above. Hyperlipidemia: Patient had a lipid profile with an elevated total cholesterol of 269, LDL cholesterol of 183, HDL, triglycerides 119. Statin dc 2/2 drug eruptions. Consider restarting after recovery from CEA Hyperglycemia: Patient has had couple blood sugars above 120 with the last one being in the high 170s. Patient refused insulin coverage. Continue Accu-Checks with insulin coverage. HgbA1c 5.9, patient has impaired fating glucose tolerance. Allergic dermatitis: (new medications Ambien, heparin and Pravachol) . No respiratory compromise. Improving. Continue prednisone, Benadryl around-the- clock. Anxiety: likely related to hospitalization. Not on anxiolytics as outpatient. Continue xanax DVT prophylaxis: Teds, heparin subcutaneous. Problem Qualifiers (1) CVA (cerebral vascular accident): (2) Carotid stenosis: Qualified Code: I65.22 - Stenosis of left carotid artery Angelica Bailey MD May 04, 2016 16:15
[2016-05-04] MEDS: hydrOXYzine HCL 25 MG TAB PO PRN (22:14)
[2016-05-04] MEDS: diphenhydrAMINE HCL 25 MG CAP PO SCH (22:14)
[2016-05-05] VITALS (24 sets, daily range): BP systolic 97–125; BP diastolic 62–79; PULSE 61–100; RESP 17–29; TEMP 97.3–98.8; O2SAT 96–99
[2016-05-05] MEDS: diphenhydrAMINE HCL 25 MG CAP PO SCH ×2 (04:00→08:23)
[2016-05-05] MEDS: CLOPIDOGREL 75 MG TAB PO SCH (08:23)
[2016-05-05] MEDS: ALPRAZolam 0.25 MG TAB PO PRN ×3 (08:23→21:42)
[2016-05-05] MEDS: predniSONE 20 MG TAB PO SCH (08:23)
[2016-05-05] MEDS: ASPIRIN 325 MG TAB PO SCH (08:23)
[2016-05-05] MEDS: SODIUM CHLORIDE 0.9% FLUSH 5 ML FLUSH IVF SCH ×2 (08:24→21:39)
--- NOTE | 2016-05-05 12:47 | HHI.PR ---
Subjective Remarks Follow-up for carotid stenosis No overnight events, blood pressure stable. No dizziness, lightheadedness or focal deficits. Rash left neck has improved remarkably. Charge rash improving , non-pruritic. Objective Vitals Vital Signs Date Time Temp Pulse Resp B/P Pulse Ox O2 Delivery O2 Flow Rate FiO2 05/05/16 06:00 70 05/05/16 05:00 72 05/05/16 04:00 72 05/05/16 03:00 62 05/05/16 03:00 98.4 92 29 115/79 99 05/05/16 02:00 63 05/05/16 01:00 66 05/05/16 00:00 74 05/04/16 23:00 98.3 69 20 117/72 97 05/04/16 23:00 68 05/04/16 22:00 63 05/04/16 21:00 80 05/04/16 20:00 72 05/04/16 19:00 98.4 94 22 139/83 95 05/04/16 19:00 68 05/04/16 18:13 90 05/04/16 17:00 85 05/04/16 16:00 88 05/04/16 15:00 97.6 88 16 134/76 96 05/04/16 15:00 85 05/04/16 14:00 102 05/04/16 13:00 96 I/O 05/04/16 05/04/16 05/04/16 05/05/16 05/05/16 05/05/16 07:00 15:00 23:00 07:00 15:00 23:00 Intake Total 420 ml 960 ml 240 ml Output Total 0 ml Balance 420 ml 960 ml 240 ml Intake Oral 420 ml 960 ml 240 ml IV Total 0 ml Stool Total 0 ml # Voids 2 4 6 Objective Remarks GENERAL: Well-developed, well-nourished in distress SKIN: Warm and dry. Improving Papular rash body mainly in the back, anterior chest and abdomen with hives HEAD: Atraumatic. Normocephalic. EYES: Pupils equal and round. No scleral icterus. No injection or drainage. ENT: No nasal bleeding or discharge. Mucous membranes pink and moist. NECK: Trachea midline. No JVD. No bruit appreciated CARDIOVASCULAR: Regular rate and rhythm. RESPIRATORY: No accessory muscle use. Clear to auscultation. Breath sounds equal bilaterally. GASTROINTESTINAL: Abdomen soft, non-tender, nondistended. MUSCULOSKELETAL: Extremities without clubbing, cyanosis, or edema. No obvious deformities. Diffuse maculopapular rash upper extremities, lower extremities and abdominal area-improved. Left neck rash almost resolved. No non-pruritic. NEUROLOGICAL: Awake and alert. No obvious cranial nerve deficits. Motor grossly within normal limits. Five out of 5 muscle strength in the arms and legs. Normal speech. PSYCHIATRIC: Appropriate mood and affect; insight and judgment normal. Procedures none A/P Problem List: (1) CVA (cerebral vascular accident) ICD Code: I63.9 Status: Acute (2) Transient visual loss, left eye ICD Code: H53.122 Status: Resolved (3) Carotid stenosis ICD Code: I65.29 Status: Chronic (4) Hyperlipidemia ICD Code: E78.5 Status: Acute (5) Hyperglycemia ICD Code: R73.9 Status: Acute (6) Impaired fasting glucose ICD Code: R73.01 Status: Acute Assessment and Plan 60-year-old female with no significant PMH, does not follow with PCP, presents with acute onset of left visual changes CVA - Left Occipital Ischemic Stroke: MRI brain showed left occipital ischemic stroke. 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 MRI neck showed severe left proximal ICA stenosis, see below. Continue aspirin/statin. Neurology following. 2D echo showed EF 55-60%, possible PFO, see below. Doppler U/S b/l lower extremities negative for DVT. Repeat MRI showed resolving stroke and neurology has cleared patient for PFO closure followed by CEA. PT/OT consulted, no PT needed at discharge. For CEA per vascular surgery likely to stay. Continue Plavix PFO: seen on echo as above. Cardiology consulted, TIFFANY done which showed PFO with R to L shunt. Unable to do endovascular closure secondary to small size. On aspirin and Plavix pvascular surgery, no need to do anything for PFO. Left Carotid Stenosis: Seen on neck MRI as above. Vascular surgery consulted, recommended CTA of the neck which showed 12 mL long high-grade, hemodynamically significant stenosis of the proximal left internal carotid artery; Patent right carotid system; Vertebrals within normal limits. On aspirin, Plavix, off statin because of possible allergy to it. Discussed with vascular surgery, planned for CEA she'll have to be postponed secondary to dermatitis with increased redness of infection. Surgery likely Sunday. Transient visual loss, left eye. Suspect due to recurrent TIAs and left occipital ischemic stroke. Management as above. Hyperlipidemia: Patient had a lipid profile with an elevated total cholesterol of 269, LDL cholesterol of 183, HDL, triglycerides 119. Statin dc 2/2 drug eruptions. Consider restarting after recovery from CEA Hyperglycemia: Patient has had couple blood sugars above 120 with the last one being in the high 170s. Patient refused insulin coverage. Continue Accu-Checks with insulin coverage. HgbA1c 5.9, patient has impaired fating glucose tolerance. Allergic dermatitis: (new medications Ambien, heparin and Pravachol) . No respiratory compromise. Improving. Decrease prednisone, Benadryl when necessary. Anxiety: likely related to hospitalization. Not on anxiolytics as outpatient. Continue xanax DVT prophylaxis: Teds, heparin subcutaneous. Discharge Planning After surgery Problem Qualifiers (1) CVA (cerebral vascular accident): (2) Carotid stenosis: Qualified Code: I65.22 - Stenosis of left carotid artery Angelica Bailey MD May 05, 2016 12:47
[2016-05-05] MEDS: diphenhydrAMINE HCL 25 MG CAP PO PRN ×2 (14:23→21:42)
[2016-05-05] MEDS: LORATADINE 10 MG TAB PO SCH (14:23)
--- NOTE | 2016-05-05 22:35 | HHI.PR ---
Review/Management Diagnosis IMAGING - Brain MRI without contrast revealed a left occipital infarct. 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 - Neck MRA with contrast revealed severe left proximal ICA stenosis. - A repeat MRI brain 04/28/2016 revealed a resolving infarction with small hemosiderin deposition in the infarcted area. DIAGNOSTIC IMPRESSION 1. Amaurosis fugax / Transient ischemic attack. 2. Left occipital ischemic infarct. 3. Likely etiology of the amaurosis fugax is left ICA symptomatic artery 4. PFO . Plan - Aspirin 325 mg daily. -Plavix 75mg - Neurological checks q.4h. - DVT prophylaxis. - GI prophylaxis. -Unsuccessful attempt for endovascular PFO closure due to small size - Vascular surgery on board, procedure is postponed until next week, because of the rash - In light of the result of repeat MRI brain revealing a resolving infarct, smaller in size, and the hemosiderin deposits in the infarcted area, however, there is clear evidence that the risk of stroke is greater than the risk of bleeding, especially that patient has had two episodes of Amaurosis fugax. As per the guidelines, in this clinical setting the timing of CEA is within two weeks after a stable ischemic stroke, hence next week as planned by Vascular surgery is a reasonable timing. Diagnosis/Plan: Subjective Subjective Comments Patient developed generalized skin hoskins that delayed the CEA CEA is postponed until next week Unsuccessful attempt for endovascular PFO closure due to small size Rah is clearing gradually Active Medications Current Medications Medications (Trade) Dose Ordered Sig/Adrien Route Start Time Stop Time Status Last Admin (NS Flush) 2 ml BID IVF 04/23/16 21:00 05/05/16 21:39 (NS Flush) 2 ml UNSCH PRN IVF 04/23/16 14:45 (Vasotec Inj) 1.25 mg Q4H PRN IV 04/23/16 14:45 (Aspirin) 325 mg DAILY PO 04/24/16 09:00 05/05/16 08:23 (Calamine Lotion) 1 applic Q6H PRN TOPICAL 04/29/16 13:00 04/29/16 17:22 (Claritin) 5 mg DAILY@14 PO 04/29/16 14:00 05/05/16 14:23 (Pill Splitter) 1 ea UNSCH PRN OTHER 04/29/16 14:00 04/30/16 14:25 (Atarax) 25 mg Q6H PRN PO 04/29/16 17:15 05/04/16 22:14 (Xanax) 0.25 mg Q6H PRN PO 05/01/16 18:00 05/05/16 21:42 (Atropine Inj) 0.5 mg UNSCH PRN IV 05/02/16 10:15 (Reglan Inj) 10 mg Q4H PRN IV 05/02/16 10:15 (Zofran Inj) 4 mg Q4H PRN IV 05/02/16 10:15 (Plavix) 75 mg DAILY PO 05/03/16 13:30 05/05/16 08:23 (Benadryl) 25 mg Q6H PRN PO 05/05/16 16:00 05/05/16 21:42 (Deltasone) 20 mg DAILY PO 05/06/16 09:00 Allergies Allergies Coded Allergies Ambien (Verified Allergy, Unknown, Hives, 04/30/16) Heparin (Verified Allergy, Unknown, Hives, 04/30/16) Pravachol (Verified Allergy, Unknown, Hives, 04/30/16) Codeine (Verified Adverse Reaction, Severe, Nausea/Vomiting, 04/23/16) Exam I&O / VS 05/04/16 05/04/16 05/05/16 15:00 23:00 07:00 Intake Total 960 ml 240 ml Output Total 0 ml Balance 960 ml 240 ml Intake Oral 960 ml 240 ml IV Total 0 ml Stool Total 0 ml # Voids 4 6 Vital Signs Date Time Temp Pulse Resp B/P Pulse Ox O2 Delivery O2 Flow Rate FiO2 05/05/16 18:09 74 05/05/16 17:00 95 05/05/16 16:00 100 05/05/16 16:00 98.5 96 18 125/79 96 05/05/16 15:00 89 05/05/16 14:00 76 05/05/16 13:00 78 05/05/16 12:00 82 05/05/16 11:00 98.5 78 17 97/62 97 05/05/16 11:00 75 05/05/16 10:00 74 05/05/16 09:00 78 05/05/16 08:00 78 05/05/16 07:00 61 05/05/16 07:00 98.8 61 17 115/77 97 05/05/16 06:00 70 05/05/16 05:00 72 05/05/16 04:00 72 05/05/16 03:00 62 05/05/16 03:00 98.4 92 29 115/79 99 05/05/16 02:00 63 05/05/16 01:00 66 05/05/16 00:00 74 05/04/16 23:00 98.3 69 20 117/72 97 05/04/16 23:00 68 Respiratory: Lungs CTA, Non-labored respirations, BS equal Cardiology: Normal rate, Regular Rhythm Musculoskeletal: Swelling Exam Comments GENERAL: Well-nourished, well-developed in no apparent distress. Good historian. Generalized rash, urticarial/hives HEENT: Atraumatic, normocephalic. Intact vision, intact hearing. NECK: No carotid bruits. Supple. No meningeal signs. CARDIOVASCULAR: Regular rate and rhythm. No murmurs. LUNGS: Clear to auscultation. No wheezes. MUSCULOSKELETAL: The extremities without clubbing or cyanosis. Moves all extremities equally. NEUROLOGICAL: Awake, alert, oriented to time, person and place. Cranial nerves II-XII are intact. Normal visual gautam. Motor system 5/5 bilateral, symmetrical. Sensory system is intact to touch and temperature, bilateral, symmetrical. Reflexes are 2+ bilateral, symmetrical. Plantars are bilaterally downgoing. Intact memory. Intact speech. Intact speech content. Cerebellar functions, [id number], [id number] are intact. Veda Gage MD May 05, 2016 22:35
[2016-05-05] MEDS: hydrOXYzine HCL 25 MG TAB PO PRN (23:34)
[2016-05-06] VITALS (27 sets, daily range): BP systolic 109–141; BP diastolic 65–84; PULSE 61–95; RESP 16–20; TEMP 97.1–97.9; O2SAT 97–100
[2016-05-06] MEDS: diphenhydrAMINE HCL 25 MG CAP PO PRN ×3 (03:29→21:23)
--- NOTE | 2016-05-06 08:27 | PD.VS.PN ---
Subjective Subjective/Hospital Course No new TIA symptoms. rash improved on torso with some extending to lower neck Objective Vitals/I&O Date Time Temp Pulse Resp B/P Pulse Ox O2 Delivery O2 Flow Rate FiO2 05/06/16 06:00 61 05/06/16 05:00 66 05/06/16 04:00 68 05/06/16 03:26 97.4 71 20 129/76 100 05/06/16 03:00 65 05/06/16 02:00 63 05/06/16 01:00 69 05/06/16 00:00 67 05/05/16 23:33 97.4 78 20 118/73 96 05/05/16 23:00 79 05/05/16 22:00 80 05/05/16 21:00 80 05/05/16 20:45 97.3 86 20 116/78 96 05/05/16 20:45 74 05/05/16 18:09 74 05/05/16 17:00 95 05/05/16 16:00 100 05/05/16 16:00 98.5 96 18 125/79 96 05/05/16 15:00 89 05/05/16 14:00 76 05/05/16 13:00 78 05/05/16 12:00 82 05/05/16 11:00 98.5 78 17 97/62 97 05/05/16 11:00 75 05/05/16 10:00 74 05/05/16 09:00 78 Physical Exam left neck with mild erythma in SC region. Assessment and Plan Assessment: (1) Transient visual loss, left eye Status: Resolved (2) CVA (cerebral vascular accident) Status: Acute (3) Carotid stenosis Status: Chronic Plan This is a 60 year old female who presented with a left sided posterior circulation CVA. She also has a left sided high grade carotid stenosis. Presently asymptomatic since hospitalized on antiplatelet and anticoagulation tx. Plan for left CEA on sunday05/08/2016. Will get carotid duplex US in am of surgery. Panchito Morton DO FACS Director Biology of Vascular Surgery /[place] Problem Qualifiers (1) CVA (cerebral vascular accident): (2) Carotid stenosis: Qualified Code: I65.22 - Stenosis of left carotid artery Panchito Morton DO May 06, 2016 08:27
[2016-05-06] MEDS ORDERED: predniSONE 20 MG TAB PO SCH (09:00)
[2016-05-06] MEDS: SODIUM CHLORIDE 0.9% FLUSH 5 ML FLUSH IVF SCH ×2 (09:04→21:23)
[2016-05-06] MEDS: CLOPIDOGREL 75 MG TAB PO SCH (09:05)
[2016-05-06] MEDS: ASPIRIN 325 MG TAB PO SCH (09:05)
[2016-05-06] MEDS: ALPRAZolam 0.25 MG TAB PO PRN ×3 (09:06→21:23)
[2016-05-06] MEDS: LORATADINE 10 MG TAB PO SCH (14:38)
--- NOTE | 2016-05-06 15:14 | HHI.PR ---
Subjective Remarks Follow-up for blurring of vision No blurring of vision but has more floaters today. No other focal deficits. Rash has markedly improved both left neck and lower extremities. Objective Vitals Vital Signs Date Time Temp Pulse Resp B/P Pulse Ox O2 Delivery O2 Flow Rate FiO2 05/06/16 13:09 83 05/06/16 12:42 82 05/06/16 11:10 97.1 95 16 122/76 98 05/06/16 11:10 74 05/06/16 10:00 84 05/06/16 09:00 89 05/06/16 08:30 82 05/06/16 08:30 97.7 82 20 141/77 98 05/06/16 07:00 61 05/06/16 06:00 61 05/06/16 05:00 66 05/06/16 04:00 68 05/06/16 03:26 97.4 71 20 129/76 100 05/06/16 03:00 65 05/06/16 02:00 63 05/06/16 01:00 69 05/06/16 00:00 67 05/05/16 23:33 97.4 78 20 118/73 96 05/05/16 23:00 79 05/05/16 22:00 80 05/05/16 21:00 80 05/05/16 20:45 97.3 86 20 116/78 96 05/05/16 20:45 74 05/05/16 18:09 74 05/05/16 17:00 95 05/05/16 16:00 100 05/05/16 16:00 98.5 96 18 125/79 96 I/O 05/05/16 05/05/16 05/05/16 05/06/16 05/06/16 05/06/16 07:00 15:00 23:00 07:00 15:00 23:00 Intake Total 240 ml 1200 ml 360 ml Output Total 0 ml Balance 240 ml 1200 ml 360 ml Intake Oral 240 ml 1200 ml 360 ml IV Total 0 ml 0 ml Stool Total 0 ml # Voids 6 6 3 # Bowel Movements 1 0 Objective Remarks GENERAL: Well-developed, well-nourished in distress SKIN: Warm and dry. Improving Papular rash body mainly in the back, anterior chest and abdomen with hives HEAD: Atraumatic. Normocephalic. EYES: Pupils equal and round. No scleral icterus. No injection or drainage. Good visual acuity, positive for floaters. ENT: No nasal bleeding or discharge. Mucous membranes pink and moist. NECK: Trachea midline. No JVD. No bruit appreciated CARDIOVASCULAR: Regular rate and rhythm. RESPIRATORY: No accessory muscle use. Clear to auscultation. Breath sounds equal bilaterally. GASTROINTESTINAL: Abdomen soft, non-tender, nondistended. MUSCULOSKELETAL: Extremities without clubbing, cyanosis, or edema. No obvious deformities. Diffuse maculopapular rash upper extremities, lower extremities and abdominal area-improved. Left neck rash almost resolved. No non-pruritic. NEUROLOGICAL: Awake and alert. No obvious cranial nerve deficits. Motor grossly within normal limits. Five out of 5 muscle strength in the arms and legs. Normal speech. PSYCHIATRIC: Appropriate mood and affect; insight and judgment normal. Procedures none A/P Problem List: (1) CVA (cerebral vascular accident) ICD Code: I63.9 Status: Acute (2) Transient visual loss, left eye ICD Code: H53.122 Status: Resolved (3) Carotid stenosis ICD Code: I65.29 Status: Chronic (4) Hyperlipidemia ICD Code: E78.5 Status: Acute (5) Hyperglycemia ICD Code: R73.9 Status: Acute (6) Impaired fasting glucose ICD Code: R73.01 Status: Acute Assessment and Plan 60-year-old female with no significant PMH, does not follow with PCP, presents with acute onset of left visual changes CVA - Left Occipital Ischemic Stroke: MRI brain showed left occipital ischemic stroke. 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 MRI neck showed severe left proximal ICA stenosis, see below. Continue aspirin/statin. Neurology following. 2D echo showed EF 55-60%, possible PFO, see below. Doppler U/S b/l lower extremities negative for DVT. Repeat MRI showed resolving stroke and neurology has cleared patient for PFO closure followed by CEA. PT/OT consulted, no PT needed at discharge. For CEA per vascular surgery likely to stay. Continue Plavix. Has floaters but otherwise no blurring of vision or visual field cuts. PFO: seen on echo as above. Cardiology consulted, TIFFANY done which showed PFO with R to L shunt. Unable to do endovascular closure secondary to small size. On aspirin and Plavix per vascular surgery, no need to do anything for PFO. Left Carotid Stenosis: Seen on neck MRI as above. Vascular surgery consulted, recommended CTA of the neck which showed 12 mL long high-grade, hemodynamically significant stenosis of the proximal left internal carotid artery; Patent right carotid system; Vertebrals within normal limits. On aspirin, Plavix, off statin because of possible allergy to it. Discussed with vascular surgery, planned for CEA she'll have to be postponed secondary to dermatitis with increased redness of infection. Surgery likely Sunday or Sunday. We had her duplex ultrasound. Transient visual loss, left eye. Suspect due to recurrent TIAs and left occipital ischemic stroke. Management as above. Hyperlipidemia: Patient had a lipid profile with an elevated total cholesterol of 269, LDL cholesterol of 183, HDL, triglycerides 119. Statin dc 2/2 drug eruptions. Consider restarting after recovery from CEA Hyperglycemia: Patient has had couple blood sugars above 120 with the last one being in the high 170s. Patient refused insulin coverage. Continue Accu-Checks with insulin coverage. HgbA1c 5.9, patient has impaired fating glucose tolerance. Allergic dermatitis: (new medications Ambien, heparin and Pravachol) . No respiratory compromise. Improving. Decrease prednisone to 10 mg tomorrow, Benadryl when necessary. Anxiety: likely related to hospitalization. Not on anxiolytics as outpatient. Continue xanax DVT prophylaxis: Teds, heparin subcutaneous. Discharge Planning After surgery Problem Qualifiers (1) CVA (cerebral vascular accident): (2) Carotid stenosis: Qualified Code: I65.22 - Stenosis of left carotid artery Angelica Bailey MD May 06, 2016 15:14
[2016-05-06] MEDS: hydrOXYzine HCL 25 MG TAB PO PRN (23:25)
[2016-05-07] VITALS (24 sets, daily range): BP systolic 107–137; BP diastolic 66–82; PULSE 59–99; RESP 18–20; TEMP 96–98; O2SAT 96–99
[2016-05-07] MEDS: ASPIRIN 325 MG TAB PO SCH (09:58)
[2016-05-07] MEDS: diphenhydrAMINE HCL 25 MG CAP PO PRN ×2 (09:59→22:07)
[2016-05-07] MEDS: CLOPIDOGREL 75 MG TAB PO SCH (09:59)
[2016-05-07] MEDS: SODIUM CHLORIDE 0.9% FLUSH 5 ML FLUSH IVF SCH ×2 (09:59→20:45)
[2016-05-07] MEDS: ALPRAZolam 0.25 MG TAB PO PRN ×2 (11:43→22:07)
--- NOTE | 2016-05-07 13:32 | HHI.PR ---
Subjective Remarks f/u for No overnight events, no chest pain or shortness of breath, no dizziness or lightheadedness. Rash almost resolved. Objective Vitals Vital Signs Date Time Temp Pulse Resp B/P Pulse Ox O2 Delivery O2 Flow Rate FiO2 05/07/16 11:00 87 05/07/16 11:00 98.0 80 18 132/82 96 05/07/16 10:00 88 05/07/16 09:00 79 05/07/16 08:00 81 05/07/16 07:15 64 05/07/16 07:15 97.8 93 18 129/82 99 05/07/16 06:00 59 05/07/16 05:00 69 05/07/16 04:00 61 05/07/16 03:37 96.0 65 20 111/70 98 05/07/16 03:00 64 05/07/16 02:00 63 05/07/16 01:00 69 05/06/16 23:59 64 05/06/16 23:24 97.3 71 20 121/73 97 05/06/16 23:00 71 05/06/16 22:00 74 05/06/16 21:00 79 05/06/16 20:00 86 05/06/16 20:00 97.5 84 20 141/84 99 05/06/16 19:00 86 05/06/16 18:08 80 05/06/16 17:20 74 05/06/16 16:04 79 05/06/16 15:08 97.9 90 16 109/65 98 05/06/16 15:08 80 05/06/16 14:00 89 I/O 05/06/16 05/06/16 05/06/16 05/07/16 05/07/16 05/07/16 07:00 15:00 23:00 07:00 15:00 23:00 Intake Total 360 ml 1160 ml 600 ml Output Total 0 ml Balance 360 ml 1160 ml 600 ml Intake Oral 360 ml 1160 ml 600 ml IV Total 0 ml 0 ml Emesis 0 ml # Voids 3 6 5 # Bowel Movements 0 2 0 Objective Remarks GENERAL: Well-developed, well-nourished in distress SKIN: Warm and dry. Improving Papular rash body mainly in the back, anterior chest and abdomen with hives HEAD: Atraumatic. Normocephalic. EYES: Pupils equal and round. No scleral icterus. No injection or drainage. Good visual acuity, positive for floaters. ENT: No nasal bleeding or discharge. Mucous membranes pink and moist. NECK: Trachea midline. No JVD. No bruit appreciated CARDIOVASCULAR: Regular rate and rhythm. RESPIRATORY: No accessory muscle use. Clear to auscultation. Breath sounds equal bilaterally. GASTROINTESTINAL: Abdomen soft, non-tender, nondistended. MUSCULOSKELETAL: Extremities without clubbing, cyanosis, or edema. No obvious deformities. Diffuse maculopapular rash upper extremities, lower extremities-almost resolved left neck rash almost resolved. No non-pruritic. NEUROLOGICAL: Awake and alert. No obvious cranial nerve deficits. Motor grossly within normal limits. Five out of 5 muscle strength in the arms and legs. Normal speech. PSYCHIATRIC: Appropriate mood and affect; insight and judgment normal. Procedures none A/P Problem List: (1) CVA (cerebral vascular accident) ICD Code: I63.9 Status: Acute (2) Transient visual loss, left eye ICD Code: H53.122 Status: Resolved (3) Carotid stenosis ICD Code: I65.29 Status: Chronic (4) Hyperlipidemia ICD Code: E78.5 Status: Acute (5) Hyperglycemia ICD Code: R73.9 Status: Acute (6) Impaired fasting glucose ICD Code: R73.01 Status: Acute Assessment and Plan 60-year-old female with no significant PMH, does not follow with PCP, presents with acute onset of left visual changes CVA - Left Occipital Ischemic Stroke: MRI brain showed left occipital ischemic stroke. 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 MRI neck showed severe left proximal ICA stenosis, see below. Continue aspirin/statin. Neurology following. 2D echo showed EF 55-60%, possible PFO, see below. Doppler U/S b/l lower extremities negative for DVT. Repeat MRI showed resolving stroke and neurology has cleared patient for PFO closure followed by CEA. PT/OT consulted, no PT needed at discharge. For CEA per vascular surgery tomorrow, continue Plavix. PFO: seen on echo as above. Cardiology consulted, TIFFANY done which showed PFO with R to L shunt. Unable to do endovascular closure secondary to small size. On aspirin and Plavix per vascular surgery, no need to do anything for PFO. Left Carotid Stenosis: Seen on neck MRI as above. Vascular surgery consulted, recommended CTA of the neck which showed 12 mL long high-grade, hemodynamically significant stenosis of the proximal left internal carotid artery; Patent right carotid system; Vertebrals within normal limits. On aspirin, Plavix, off statin because of possible allergy to it. CEA tomorrow Hyperlipidemia: Patient had a lipid profile with an elevated total cholesterol of 269, LDL cholesterol of 183, HDL, triglycerides 119. Statin dc 2/2 drug eruptions. Consider restarting after recovery from CEA Hyperglycemia: Patient refused insulin coverage. Continue Accu-Checks with insulin coverage. HgbA1c 5.9, patient has impaired fating glucose tolerance. Allergic dermatitis: (new medications Ambien, heparin and Pravachol) . No respiratory compromise. Improving. Continue prednisone 10 mg daily, Benadryl as needed. Discontinue prednisone in 2 days Anxiety: likely related to hospitalization. Not on anxiolytics as outpatient. Continue xanax DVT prophylaxis: Teds, heparin subcutaneous. Discharge Planning After surgery Problem Qualifiers (1) CVA (cerebral vascular accident): (2) Carotid stenosis: Qualified Code: I65.22 - Stenosis of left carotid artery Angelica Bailey MD May 07, 2016 13:32
[2016-05-07] MEDS: LORATADINE 10 MG TAB PO SCH (14:20)
[2016-05-07] MEDS: predniSONE 10 MG TAB PO SCH (15:50)
--- NOTE | 2016-05-07 15:54 | PD.VS.PN ---
Subjective Subjective/Hospital Course No new TIA symptoms. rash improved substantially, especially over the neck region. Objective Vitals/I&O Date Time Temp Pulse Resp B/P Pulse Ox O2 Delivery O2 Flow Rate FiO2 05/07/16 11:00 87 05/07/16 11:00 98.0 80 18 132/82 96 05/07/16 10:00 88 05/07/16 09:00 79 05/07/16 08:00 81 05/07/16 07:15 64 05/07/16 07:15 97.8 93 18 129/82 99 05/07/16 06:00 59 05/07/16 05:00 69 05/07/16 04:00 61 05/07/16 03:37 96.0 65 20 111/70 98 05/07/16 03:00 64 05/07/16 02:00 63 05/07/16 01:00 69 05/06/16 23:59 64 05/06/16 23:24 97.3 71 20 121/73 97 05/06/16 23:00 71 05/06/16 22:00 74 05/06/16 21:00 79 05/06/16 20:00 86 05/06/16 20:00 97.5 84 20 141/84 99 05/06/16 19:00 86 05/06/16 18:08 80 05/06/16 17:20 74 05/06/16 16:04 79 Assessment and Plan Assessment: (1) Transient visual loss, left eye Status: Resolved (2) CVA (cerebral vascular accident) Status: Acute (3) Carotid stenosis Status: Chronic Plan This is a 60 year old female who presented with a left sided posterior circulation CVA. She also has a left sided high grade carotid stenosis. Presently asymptomatic since hospitalized on antiplatelet and anticoagulation tx , Patient understands risk and benefits of a CEA including stroke, cranial nerve injury, infection, heart attack. Plan for left CEA on tomorrow 05/08/2016. Will get carotid duplex US in am of surgery. Panchito Morton DO FACS [employer] Assembler of Vascular Surgery /[place] Problem Qualifiers (1) CVA (cerebral vascular accident): (2) Carotid stenosis: Qualified Code: I65.22 - Stenosis of left carotid artery Panchito Morton DO May 07, 2016 15:54
[2016-05-08] VITALS (19 sets, daily range): BP systolic 102–134; BP diastolic 57–96; PULSE 51–99; RESP 18–22; TEMP 97.3–98.1; O2SAT 95–100
[2016-05-08] MEDS ORDERED: INSULIN HUMAN REGULAR 1,000 UNITS/10 ML VIAL SQ PRN (04:45)
[2016-05-08] MEDS ORDERED: SODIUM CHLORID 0.9% 500 ML IV SCH (04:45)
[2016-05-08] MEDS ORDERED: LACTATED RINGER'S 1000 ML IV SCH (04:45)
[2016-05-08] MEDS: CLOPIDOGREL 75 MG TAB PO SCH (09:00)
[2016-05-08] MEDS: predniSONE 10 MG TAB PO SCH (09:00)
[2016-05-08] MEDS: ASPIRIN 325 MG TAB PO SCH (09:00)
[2016-05-08] MEDS: SODIUM CHLORIDE 0.9% FLUSH 5 ML FLUSH IVF SCH ×2 (09:00→20:52)
[2016-05-08] MEDS ORDERED: PHENYLEPH/NS 1000 MCG/10 ML SYR IV ONE (09:55)
[2016-05-08] MEDS ORDERED: ACETAMINOPHEN 1000 MG/100 ML VIAL IV ONE (09:55)
[2016-05-08] MEDS ORDERED: NORMOSOL R INJ 1,000 ML IV ONE (09:55)
[2016-05-08] MEDS ORDERED: NEOSTIGMINE 3 MG/3 ML SYR IV ONE (09:55)
[2016-05-08] MEDS ORDERED: LACTATED RINGER'S 1000 ML INJ 1,000 ML IV ONE (09:55)
[2016-05-08] MEDS ORDERED: PROPOFOL 200 MG/20 ML AMP IV ONE (09:55)
--- NOTE | 2016-05-08 10:55 | RADRPT ---
EXAM DATE/TIME: 05/08/2016 08:19 [place] COMPARISON: CTA CAROTID ARTERIES W 3D RECON, April 23, 2016, 15:21. US CAROTID ARTERIES, April 23, 2016, 17: 37. INDICATIONS : Transient ischemic attack. MEDICAL HISTORY : Visual changes. Stroke. Joint pain. SURGICAL HISTORY : Tonsillectomy. Tubal ligation. ENCOUNTER: Subsequent ACUITY: 1 day PAIN SCORE: 0/10 LOCATION: Bilateral neck PEAK SYSTOLIC VELOCITIES (cm/sec): ICA/CCA RATIO: Right: 1.6 Left: 8.0 ICA: Right: 125 Left: 507 CCA: Right: 76 Left: 63 ECA: Right: 64 Left: 63 VERTEBRAL: Right: 44 antegrade Left: 53 antegrade Elevated flow velocities and ICA/CCA ratios have been found to correlate with increased degrees of vessel stenosis, calculated as percentage of diameter relative to a normal segment of distal ICA/CCA FINDINGS: RIGHT CAROTID: No significant stenosis is visualized. Minimal mural thickening. The waveforms are within normal limi ts. LEFT CAROTID: Plaquing throughout the carotid bulb extending into the internal. The waveforms are within normal li mits. VERTEBRAL ARTERIES: Antegrade flow is seen in both vertebral arteries. MISCELLANEOUS: None. CONCLUSION: 1. Plaquing in both carotid systems with minimal mural thickening on the right and more extensive dis ease on the left. 2. Doppler velocities and ratios would suggest a critical, greater than 90% stenosis in the left inte rnal carotid. 3. Antegrade flow in both vertebral arteries. No significant stenosis identified on the right. Philip Patel MD Board Certified Radiologist. This report was verified electronically.
[2016-05-08] MEDS ORDERED: HEPARIN SODIUM - IV 10,000 UNITS/10 ML VIAL ONE (12:03)
[2016-05-08] MEDS ORDERED: GELFOAM SIZE 100 ONE (12:03)
[2016-05-08] MEDS ORDERED: THROMBIN (TOPICAL) 5,000 UNIT VIAL ONE (12:03)
[2016-05-08] MEDS ORDERED: ceFAZolin 2 GM PREMIX 50 ML ONE (12:03)
[2016-05-08] MEDS ORDERED: PROTAMINE SULFATE 50 MG/5 ML VIAL ONE (12:03)
[2016-05-08] MEDS ORDERED: BUPIVACAINE/EPINEPHRINE 0.25% PF 30 ML VIAL ONE (12:03)
[2016-05-08] MEDS ORDERED: HEPARIN SODIUM - SQ 10,000 UNITS/ML VIAL ONE (12:03)
[2016-05-08] MEDS ORDERED: LIDOCAINE HCL 1% 20 ML VIAL ONE (12:07)
[2016-05-08] MEDS ORDERED: FAMOTIDINE 20 MG/2 ML VIAL ONE (12:12)
[2016-05-08] MEDS: LORATADINE 10 MG TAB PO SCH (14:00)
[2016-05-08] MEDS ORDERED: GLUCAGON 1 MG/ML VIAL OTHER PRN (15:00)
[2016-05-08] MEDS ORDERED: ONDANSETRON HCL 4 MG/2 ML VIAL IV PUSH PRN (15:00)
[2016-05-08] MEDS ORDERED: MAGNESIUM HYDROXIDE SUSP 30 ML CUP PO PRN (15:00)
[2016-05-08] MEDS ORDERED: Post-op Orders (for Pharmacy) MISC OTHER ONE (15:00)
[2016-05-08] MEDS ORDERED: LABETALOL HCL 100 MG/20 ML VIAL IV PUSH PRN (15:00)
[2016-05-08] MEDS ORDERED: DEXTROSE 50% IN WATER 50 ML VIAL(D50) IV PUSH PRN (15:00)
[2016-05-08] MEDS ORDERED: ACETAMINOPHEN 325 MG TAB PO PRN (15:00)
--- NOTE | 2016-05-08 15:03 | HHI.PR ---
Subjective Remarks Follow for rash Rash on the serosal, no chest pain or shortness of breath. For her CEA today. Objective Vitals Vital Signs Date Time Temp Pulse Resp B/P Pulse Ox O2 Delivery O2 Flow Rate FiO2 05/08/16 11:31 98.1 96 18 134/96 05/08/16 11:00 81 05/08/16 09:00 71 05/08/16 08:00 77 05/08/16 07:00 99 05/08/16 07:00 72 05/08/16 07:00 98.0 81 18 133/85 98 05/08/16 06:00 62 05/08/16 05:00 58 05/08/16 04:00 97.9 70 18 111/79 97 05/08/16 04:00 63 05/08/16 03:00 62 05/08/16 02:00 67 05/08/16 01:00 67 05/08/16 00:00 65 05/08/16 00:00 97.5 68 20 110/67 96 05/07/16 23:00 73 05/07/16 22:00 91 05/07/16 21:00 82 05/07/16 20:00 97.8 94 20 137/80 96 05/07/16 20:00 83 05/07/16 19:00 80 05/07/16 18:00 99 05/07/16 17:00 70 05/07/16 16:00 71 I/O 05/07/16 05/07/16 05/07/16 05/08/16 05/08/16 05/08/16 07:00 15:00 23:00 07:00 15:00 23:00 Intake Total 600 ml 1160 ml 440 ml Output Total 0 ml Balance 600 ml 1160 ml 440 ml Intake Oral 600 ml 1160 ml 440 ml IV Total 0 ml Emesis 0 ml # Voids 5 7 3 # Bowel Movements 0 3 Objective Remarks GENERAL: Well-developed, well-nourished in distress SKIN: Warm and dry. Improving Papular rash body mainly in the back, anterior chest and abdomen with hives HEAD: Atraumatic. Normocephalic. EYES: Pupils equal and round. No scleral icterus. No injection or drainage. Good visual acuity, positive for floaters. ENT: No nasal bleeding or discharge. Mucous membranes pink and moist. NECK: Trachea midline. No JVD. No bruit appreciated CARDIOVASCULAR: Regular rate and rhythm. RESPIRATORY: No accessory muscle use. Clear to auscultation. Breath sounds equal bilaterally. GASTROINTESTINAL: Abdomen soft, non-tender, nondistended. MUSCULOSKELETAL: Extremities without clubbing, cyanosis, or edema. No obvious deformities. Diffuse maculopapular rash upper extremities, lower extremities-almost resolved left neck rash almost resolved. No non-pruritic. NEUROLOGICAL: Awake and alert. No obvious cranial nerve deficits. Motor grossly within normal limits. Five out of 5 muscle strength in the arms and legs. Normal speech. PSYCHIATRIC: Appropriate mood and affect; insight and judgment normal. Procedures none A/P Problem List: (1) CVA (cerebral vascular accident) ICD Code: I63.9 Status: Acute (2) Transient visual loss, left eye ICD Code: H53.122 Status: Resolved (3) Carotid stenosis ICD Code: I65.29 Status: Chronic (4) Hyperlipidemia ICD Code: E78.5 Status: Acute (5) Hyperglycemia ICD Code: R73.9 Status: Acute (6) Impaired fasting glucose ICD Code: R73.01 Status: Acute Assessment and Plan 60-year-old female with no significant PMH, does not follow with PCP, presents with acute onset of left visual changes CVA - Left Occipital Ischemic Stroke: MRI brain showed left occipital ischemic stroke. 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 MRI neck showed severe left proximal ICA stenosis, see below. Continue aspirin/statin. Neurology following. 2D echo showed EF 55-60%, possible PFO, see below. Doppler U/S b/l lower extremities negative for DVT. Repeat MRI showed resolving stroke and neurology has cleared patient for PFO closure followed by CEA. PT/OT consulted, no PT needed at discharge. For CEA today. Restart statin after surgery. PFO: seen on echo as above. Cardiology consulted, TIFFANY done which showed PFO with R to L shunt. Unable to do endovascular closure secondary to small size. On aspirin and Plavix per vascular surgery, no need to do anything for PFO. Left Carotid Stenosis: Seen on neck MRI as above. Vascular surgery consulted, recommended CTA of the neck which showed 12 mL long high-grade, hemodynamically significant stenosis of the proximal left internal carotid artery; Patent right carotid system; Vertebrals within normal limits. On aspirin, Plavix, off statin because of possible allergy to it. CEA tomorrow Hyperlipidemia: Patient had a lipid profile with an elevated total cholesterol of 269, LDL cholesterol of 183, HDL, triglycerides 119. Statin dc 2/2 drug eruptions. Consider restarting after recovery from CEA Hyperglycemia: Patient refused insulin coverage. Continue Accu-Checks with insulin coverage. HgbA1c 5.9, patient has impaired fating glucose tolerance. Allergic dermatitis: (new medications Ambien, heparin and Pravachol) . No respiratory compromise. Improving. Stop prednisone, Benadryl as needed. Restart statin in 1-2 days after surgery. Anxiety: likely related to hospitalization. Not on anxiolytics as outpatient. Continue xanax DVT prophylaxis: Teds, heparin subcutaneous. Discharge Planning After surgery Problem Qualifiers (1) CVA (cerebral vascular accident): (2) Carotid stenosis: Qualified Code: I65.22 - Stenosis of left carotid artery Angelica Bailey MD May 08, 2016 15:03
[2016-05-08] MEDS ORDERED: DO NOT ADM ANY ANTICOAGULANT DRUGS XX PRN (15:24)
[2016-05-08] MEDS ORDERED: fentaNYL CITRATE 250 MCG/5 ML AMP ONE (15:37)
[2016-05-08] MEDS ORDERED: *ONDANSETRON 4 MG VIAL PERIprocedural Use ONLY ONE (16:07)
[2016-05-08] MEDS: SODIUM CHLOR 0.9% 1000 ML INJ 1,000 ML IV SCH (16:15)
[2016-05-08] MEDS ORDERED: ASPIRIN 81 MG CHEW TAB ONE (17:07)
--- NOTE | 2016-05-08 17:11 | PD.VS.PN ---
Subjective POD #: 0 Procedure(s): left CEA Subjective/Hospital Course No new TIA symptoms. rash improved substantially, especially over the neck region. Objective Neuro: CN2-12 intact. Left lip droop. Equal stick feeder strength bilaterally upper extremities. Pulmonary: CTA bilaterally Cardiac: regular FEN/GI: ab soft/FD. : [place] discontinued. Imaging Last 48 hours Impressions Carotid Artery Ultrasound 05/08/16 0900 Signed Impressions: Service Date/Time: Sunday, May 08, 2016 08:19 - CONCLUSION: 1. Plaquing in both carotid systems with minimal mural thickening on the right and more extensive disease on the left. 2. Doppler velocities and ratios would suggest a critical, greater than 90%% stenosis in the left internal carotid. 3. Antegrade flow in both vertebral arteries. No significant stenosis identified on the right. Philip Patel MD Assessment and Plan Assessment: (1) Transient visual loss, left eye Status: Resolved (2) CVA (cerebral vascular accident) Status: Acute (3) Carotid stenosis Status: Chronic Plan This is a 60 year old female with a hx of a left sided CVA of the posterior circulation and a symptomatic left high graded carotid stenosis. Status post left CEA. Patient complains of being thirsty and is anxious but no lateralizing signs ( neurologically intact). 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 Plan for liquid diet and neurochecks. . Panchito Morton DO FACS [employer] Lieutenant of Vascular Surgery /[place] Problem Qualifiers (1) CVA (cerebral vascular accident): (2) Carotid stenosis: Qualified Code: I65.22 - Stenosis of left carotid artery Panchito Morton DO May 08, 2016 17:11
[2016-05-08] MEDS ORDERED: ASPIRIN 81 MG CHEW TAB PO ONE (17:45)
[2016-05-08] MEDS: INSULIN NovoLIN REGULAR SUPPLEMENTAL SCALE SQ SCH (18:00)
[2016-05-08] MEDS: ceFAZolin 2 GM PREMIX 50 ML IV SCH (20:52)
[2016-05-08] MEDS ORDERED: ceFAZolin 2 GM PREMIX 50 ML IV SCH (21:00)
[2016-05-08] MEDS ORDERED: PANTOPRAZOLE SOD 40 MG DELAYED RELEASE TAB PO SCH (21:00)
[2016-05-08] MEDS ORDERED: DOCUSATE CALCIUM 240 MG CAP PO SCH (21:00)
[2016-05-09] VITALS (15 sets, daily range): BP systolic 99–126; BP diastolic 62–68; PULSE 47–79; RESP 17–18; TEMP 97.8–98.4; O2SAT 97–99
[2016-05-09] MEDS: ALPRAZolam 0.25 MG TAB PO PRN ×2 (00:14→09:16)
[2016-05-09] MEDS: ceFAZolin 2 GM PREMIX 50 ML IV SCH ×2 (05:00→13:16)
[2016-05-09] MEDS: INSULIN NovoLIN REGULAR SUPPLEMENTAL SCALE SQ SCH ×3 (06:00→12:00)
[2016-05-09 06:39] LABS: ALKALINE PHOSPHATASE 86 U/L (45-117); ALT (GPT) 59 U/L (10-53); ANION GAP 9 MEQ/L (5-15); AST (GOT) 17 U/L (15-37); BICARBONATE 24.7 MEQ/L (21.0-32.0); BLOOD UREA NITROGEN 14 MG/DL (7-18); CHLORIDE 106 MEQ/L (98-107); GLOMERULAR FILTRATION RATE 126 ML/MIN (>89); POTASSIUM 3.9 MEQ/L (3.5-5.1); SODIUM (NA) 140 MEQ/L (136-145); TOTAL BILIRUBIN ADULT 0.4 MG/DL (0.2-1.0)
--- NOTE | 2016-05-09 08:08 | PD.VS.PN ---
Subjective Subjective/Hospital Course Status post left CEA. Patient hungry. Objective Vitals/I&O Date Time Temp Pulse Resp B/P Pulse Ox O2 Delivery O2 Flow Rate FiO2 05/09/16 07:30 97.8 60 17 99/62 98 05/09/16 06:00 58 05/09/16 05:00 47 05/09/16 04:00 49 05/09/16 03:00 79 05/09/16 03:00 98.4 79 18 126/64 99 05/09/16 02:00 51 05/09/16 01:00 58 05/09/16 00:00 66 05/08/16 23:00 98.1 58 22 104/67 100 05/08/16 23:00 58 05/08/16 22:00 53 05/08/16 21:00 51 05/08/16 20:44 Nasal Cannula 2.00 05/08/16 20:00 57 05/08/16 19:00 97.9 70 20 102/57 100 05/08/16 19:00 70 05/08/16 18:00 67 05/08/16 17:00 97.3 67 18 112/59 95 05/08/16 17:00 67 05/08/16 16:25 63 14 99/70 99 Arterial Line 05/08/16 16:15 60 14 111/61 100 Nasal Cannula 2 05/08/16 16:00 97.4 67 15 115/69 98 Nasal Cannula 2 05/08/16 15:45 58 15 130/75 99 Nasal Cannula 2 05/08/16 15:30 60 14 137/76 99 Nasal Cannula 2 05/08/16 15:25 66 14 144/80 99 Nasal Cannula 2 Automatic Cuff 05/08/16 11:31 98.1 96 18 134/96 05/08/16 11:00 81 05/08/16 09:00 71 Physical Exam left neck incision intact. CN2-12 intact. Laboratory Laboratory Tests Test 05/09/16 05:33 Sodium Level 140 Potassium Level 3.9 Chloride Level 106 Carbon Dioxide Level 24.7 Anion Gap 9 Blood Urea Nitrogen 14 Creatinine 0.50 Estimat Glomerular Filtration 126 Rate Random Glucose 77 Calcium Level 8.2 Total Bilirubin 0.4 Aspartate Amino Transf 17 (AST/SGOT) Alanine Aminotransferase 59 (ALT/SGPT) Alkaline Phosphatase 86 Total Protein 5.7 Albumin 3.1 Imaging Last 48 hours Impressions Carotid Artery Ultrasound 05/08/16 0900 Signed Impressions: Service Date/Time: Sunday, May 08, 2016 08:19 - CONCLUSION: 1. Plaquing in both carotid systems with minimal mural thickening on the right and more extensive disease on the left. 2. Doppler velocities and ratios would suggest a critical, greater than 90%% stenosis in the left internal carotid. 3. Antegrade flow in both vertebral arteries. No significant stenosis identified on the right. Philip Patel MD Assessment and Plan Assessment: (1) Transient visual loss, left eye Status: Resolved (2) CVA (cerebral vascular accident) Status: Acute (3) Carotid stenosis Status: Chronic Plan This is a 60 year old female with a hx of a left sided CVA of the posterior circulation and a symptomatic left high graded carotid stenosis. Status post left CEA. left lip droop resolved. Patient without complaints. Plan to advance diet and OOB/ambulate. Will continue aspirin daily. Possible discharge later today from my standpoint. . Panchito Morton DO FACS [employer] Security Specialist of Vascular Surgery /[place] Problem Qualifiers (1) CVA (cerebral vascular accident): (2) Carotid stenosis: Qualified Code: I65.22 - Stenosis of left carotid artery Panchito Morton DO May 09, 2016 08:08
[2016-05-09] MEDS ORDERED: ASPIRIN EC 325 MG TABEC PO SCH (09:00)
[2016-05-09] MEDS: CLOPIDOGREL 75 MG TAB PO SCH ×2 (09:00→10:49)
[2016-05-09] MEDS: SODIUM CHLOR 0.9% 1000 ML INJ 1,000 ML IV SCH (09:23)
[2016-05-09] MEDS: SODIUM CHLORIDE 0.9% FLUSH 5 ML FLUSH IVF SCH (09:23)
--- NOTE | 2016-05-09 10:37 | HHI.DS ---
Discharge Summary Admission Date Apr 23, 2016 at 13:09 Discharge Date: May 09, 2016 Admitting Diagnosis L occipital infarct (1) CVA (cerebral vascular accident) ICD Code: I63.9 Diagnosis: Principal (2) Transient visual loss, left eye ICD Code: H53.122 Diagnosis: Secondary (3) Carotid stenosis ICD Code: I65.29 Diagnosis: Secondary (4) Hyperlipidemia ICD Code: E78.5 Diagnosis: Secondary (5) Hyperglycemia ICD Code: R73.9 (6) Impaired fasting glucose ICD Code: R73.01 Diagnosis: Secondary Procedures Status post left CEA 05/08/16 Brief History - From Admission This is a 60-year-old female without significant past medical history who does not follow up with physicians and presents with left visual changes. The patient states that symptoms started approximately one week ago on [place] when she had a sudden episode of left-sided vision loss which lasted for approximately 10 minutes and completely resolved by itself. The patient states that she minimized her symptoms and did not seek any help at this time. The patient denies any other symptoms like palpitations, dizziness, arm or leg weakness, sensory deficits. The patient states that she presented today because she woke up with similar symptoms again with complete left eye loss of vision which resolved (3 minutes of waking up. The patient denies any symptoms like chest pain, shortness of breath, dizziness, palpitations, numbness or tingling of extremities, upper and lower extremity weakness. Patient also denies any cough, dysuria, abdominal pain. CBC/BMP: 05/09/16 0533 Significant Findings Laboratory Tests Test 05/09/16 05:33 Calcium Level 8.2 MG/DL (8.5-10.1) Alanine Aminotransferase 59 U/L (10-53) (ALT/SGPT) Total Protein 5.7 GM/DL (6.4-8.2) Albumin 3.1 GM/DL (3.4-5.0) PE at Discharge GENERAL: Well-developed, well-nourished in distress SKIN: Warm and dry. Improving Papular rash body mainly in the back, anterior chest and abdomen with hives HEAD: Atraumatic. Normocephalic. EYES: Pupils equal and round. No scleral icterus. No injection or drainage. Good visual acuity, positive for floaters. ENT: No nasal bleeding or discharge. Mucous membranes pink and moist. NECK: Trachea midline. No JVD. No bruit appreciated CARDIOVASCULAR: Regular rate and rhythm. RESPIRATORY: No accessory muscle use. Clear to auscultation. Breath sounds equal bilaterally. GASTROINTESTINAL: Abdomen soft, non-tender, nondistended. MUSCULOSKELETAL: Extremities without clubbing, cyanosis, or edema. No obvious deformities. Diffuse maculopapular rash upper extremities, lower extremities-almost resolved left neck rash almost resolved. No non-pruritic. NEUROLOGICAL: Awake and alert. No obvious cranial nerve deficits. Motor grossly within normal limits. Five out of 5 muscle strength in the arms and legs. Normal speech. PSYCHIATRIC: Appropriate mood and affect; insight and judgment normal. Pt update on day of discharge Status post CEA day 1, no blurring of vision, no visual changes, no focal deficits. No chest pain or shortness of breath. Rash has resolved. Hospital Course This is a 60-year-old female with no significant PMH, does not follow with PCP, presents with acute onset of left visual changes. Patient was found to have a left occipital ischemic stroke. 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 MRA neck showed severe left proximal ICA stenosis. Patient was started on aspirin and statin. However patient had an allergic reaction and statin was stopped. Neurology, vascular surgery was consulted and cardiology. 2D echo showed EF 55-60%, possible PFO, see below. TIFFANY done which showed PFO with R to L shunt. Unable to do endovascular closure secondary to small size. For her rash, she was started on prednisone and antihistamines. Rash improved after several days. Per vascular surgery, PFO is nonsurgical, per cardiology, continue aspirin and Plavix for her left carotid stenosis, patient went for left CEA. Patient's postoperative course was unremarkable and patient was discharged on aspirin and Plavix. She will need to be restarted on a statin as outpatient by vascular surgery. Pt Condition on Discharge: Good Discharge Disposition: Discharge Home Discharge Time: > 30 minutes Discharge Instructions DIET: Follow Instructions for: Heart Healthy Diet Speech Therapy-Diet Recommends: Regular Activities you can perform: Regular-No Restrictions Follow up Referrals: Neurology - 1 Week PCP Follow-up - 1 Week Vascular Surgery - 1 Week New Medications: Hydrocodone-Acetaminophen (Thornton) 5-325 mg Tab 1 TAB PO Q6H PRN PAIN #30 Ref 0 TAB Aspirin (Aspirin) 325 Mg Tab 325 MG PO DAILY Prevent Blood Clot #30 TAB Clopidogrel (Plavix) 75 Mg Tab 75 MG PO DAILY PFO #30 TAB Angelica Bailey MD May 09, 2016 10:36 Discharge Instructions DIET: Follow Instructions for: Heart Healthy Diet Speech Therapy-Diet Recommends: Regular Activities you can perform: Regular-No Restrictions Follow up Referrals: Neurology - 1 Week PCP Follow-up - 1 Week Vascular Surgery - 1 Week New Medications: Hydrocodone-Acetaminophen (Thornton) 5-325 mg Tab 1 TAB PO Q6H PRN PAIN #30 Ref 0 TAB Aspirin (Aspirin) 325 Mg Tab 325 MG PO DAILY Prevent Blood Clot #30 TAB Clopidogrel (Plavix) 75 Mg Tab 75 MG PO DAILY PFO #30 TAB Angelica Bailey MD May 09, 2016 10:36
[2016-05-09] MEDS ORDERED: PLAV75TA29 PO (10:38)
[2016-05-09] MEDS ORDERED: NORC5TAB PO (10:38)
[2016-05-09] MEDS: LORATADINE 10 MG TAB PO SCH (13:16)
--- NOTE | 2016-05-10 11:22 | HHI.FF ---
Face to Face Verification Diagnosis: (1) CVA (cerebral vascular accident) (2) Carotid stenosis Home Health Nursing Order: Wound care and dressing changes Nursing assessment with vital signs I have seen patient Heide Jean on 05/10/16. My clinical findings support the need for the requested home health care services because: Limited ability to care for self I certify that my clinical findings support that this patient is homebound because: Post-op weakness Angelica Bailey MD May 10, 2016 11:22
--- NOTE | 2016-05-11 06:59 | MP ---
cc: PANCHITO MORTON DATE OF SURGERY 05/08/2016 PREOPERATIVE DIAGNOSIS Symptomatic left ICA high-grade carotid stenosis. POSTOPERATIVE DIAGNOSIS Symptomatic left ICA high-grade carotid stenosis. SURGEON Panchito Morton DO CO-SURGEON Ortiz Monzon MD PROCEDURE Left carotid endarterectomy with neuro monitoring. ANESTHESIA General with approximately 20 cc with quarter percent Marcaine with epinephrine FLUIDS One liter of crystalloid ESTIMATED BLOOD LOSS Minimal URINE OUTPUT 150 cc COMPLICATIONS None DISPOSITION To PACU PROCEDURE The patient's left neck was prepped and draped in a sterile fashion after being under general endotracheal anesthesia and receiving two grams of IV Ancef. I made a linear incision across the anterior border of the sternocleidomastoid from just posterior to the tragus towards the sternal notch. I used a scalpel and electrocautery. I dissected down with the Bovie and then Metzenbaum scissors. I dissected freeing the periadventitial tissue off the common internal and external carotid arteries. I identified the hypoglossal nerve and did not perform any traction on this. Once I had the common internal and external carotid arteries isolated, I placed a 2-0 silk as a vessel loop over the external carotid artery and used the vessel loop for the common and internal carotid arteries. I used pediatric profunda clamps for the common and internal carotid arteries. I test clamped the internal carotid artery and there were no changes in the SSEPs or EEG waveforms. Not, that I did heparinized the patient to an ACT of greater than 200 before clamping the internal carotid artery. I used an 11-blade and Rubi scissors to cut from the common to across the internal carotid artery. I used a [place] elevator to remove any plaque off the posterior wall of the common internal carotid arteries. I irrigated the back wall and removed any debris. I sewed the patch in with a two 5-0 Prolene in a continuous running fashion. These were on a BV-1 needle. I back-bled the internal and external carotid artery before re-occluding them before forward bleeding the common. It should be noted I did use three 6-0 Prolene correction sutures at the end of the case and used a piece of Surgicel to help with hemostasis. There was a diastolic flow that could be heard in the internal and a systolic flow heard in the external carotid arteries. There were no changes in the neuro monitoring during the case. It should be noted if there were any side branches that were noted off of the internal jugular vein were controlled and divided with 3-0 silk sutures and small and medium clips as needed. It should be noted that the ascending pharyngeal branch came off of the bifurcation and essentially off of the internal carotid artery and was control with a medium clip that was removed at the end of the case. It should be noted that I closed in layers with 2-0 Vicryl absorbable suture and then a 3-0 Vicryl absorbable suture for the deep space in the platysma and then a 4-0 Monocryl for the subcuticular space. It should be noted I used Dermabond over the skin and placed a towel around the neck with normal saline bag for compression. The patient tolerated procedure well. DO DASH Pinedo /3:01 PM /6:46 AM
[2016-05-17] MEDS ORDERED: PLAV75TA29 PO (10:54)
[2016-06-22] MEDS ORDERED: VITA500T PO (10:28)
[2016-06-22] MEDS ORDERED: GARL500T PO (10:28)
[2016-06-22] MEDS ORDERED: FISHCAP4 PO (10:28)
[2016-06-22] MEDS ORDERED: PRAV40TA PO (10:53)
[2016-06-22] MEDS ORDERED: PLAV75TA29 PO (10:55)
[2016-09-27] MEDS ORDERED: ASCO500T PO (08:55)
[2016-09-27] MEDS ORDERED: GARL500C PO (08:55)
[2016-09-27] MEDS ORDERED: PLAV75TA29 PO (09:17)
[2016-09-27] MEDS ORDERED: PRAV40TA PO (09:17)
== END 2016-05-09 14:49 | disposition home or self-care (01) | DRG 38 ==
LOC: NEPC 09:34 → NEDA 13:09 → N06B 21:57 → HCIS 05-02 08:28 → HCPC 05-03 16:11
PROVIDERS: ADMIT Hospitalist; ATTEND Hospitalist
PROC: 3E0F7GC Introduction of Other Therapeutic Substance into Respiratory Tract, Via Natural or Artificial Opening (ICD-10-PCS; 2016-04-23)
PROC: B246ZZ4 Ultrasonography of Right and Left Heart, Transesophageal (ICD-10-PCS; 2016-04-26)
PROC: 4A023N6 Measurement of Cardiac Sampling and Pressure, Right Heart, Percutaneous Approach (ICD-10-PCS; 2016-05-02)
PROC: B2141ZZ Fluoroscopy of Right Heart using Low Osmolar Contrast (ICD-10-PCS; 2016-05-02)
PROC: B244ZZ3 Ultrasonography of Right Heart, Intravascular (ICD-10-PCS; 2016-05-02)
PROC: 03CL0ZZ Extirpation of Matter from Left Internal Carotid Artery, Open Approach (ICD-10-PCS; 2016-05-08)
PROC: 03UJ0JZ Supplement Left Common Carotid Artery with Synthetic Substitute, Open Approach (ICD-10-PCS; 2016-05-08)
PROC: 03UL0JZ Supplement Left Internal Carotid Artery with Synthetic Substitute, Open Approach (ICD-10-PCS; 2016-05-08)
PROC: 03CJ0ZZ Extirpation of Matter from Left Common Carotid Artery, Open Approach (ICD-10-PCS; principal; 2016-05-08 12:51)
DX: I63.9 Cerebral infarction, unspecified (principal); Q21.1 Atrial septal defect; I10 Essential (primary) hypertension; L27.0 Generalized skin eruption due to drugs and medicaments taken internally; I65.22 Occlusion and stenosis of left carotid artery; F41.9 Anxiety disorder, unspecified; E78.5 Hyperlipidemia, unspecified; Z82.3 Family history of stroke; Z87.891 Personal history of nicotine dependence; T42.6X5A Adverse effect of other antiepileptic and sedative-hypnotic drugs, initial encounter; Y92.239 Unspecified place in hospital as the place of occurrence of the external cause; T50.995A Adverse effect of other drugs, medicaments and biological substances, initial encounter; R73.01 Impaired fasting glucose; Z82.49 Family history of ischemic heart disease and other diseases of the circulatory system
CPT/HCPCS: 70498; 70544; 70548; 70551; 80048; 80053; 80061; 82810; 82948; 83036; 83735; 85002; 85025; 85347; 85610; 85730; 93005; 93306; 93312; 93320; 93325; 93451; 93662; 93880; 93923; 93970; 94150; A9579; C1759; C1768; C1769; C1893; J0131; J0690; J1200; J1644; J2250; J2370; J2405; J2710; J2720; J2920; J3010; J7030; J7120; J7512; J7613; Q0163; Q9967

== ENCOUNTER → 2016-09-19 | Outpatient (CLI) | payer OTHER ==
[~2016-09-19] MED LIST: ASCO500T PO; ASPI325T PO; FISHCAP4 PO; GARL500C PO; GARL500T PO; PLAV75TA29 PO; PRAV40TA PO; VITA500T PO
[2016-09-19 08:55] LABS: MEAN CORPUSCULAR HEMOGLOBIN 29.1 PG (27.0-34.0); MEAN CORPUSCULAR HGB CONC 33.5 % (32.0-36.0); PLATELET COUNT 262 TH/MM3 (150-450); RED BLOOD COUNT 4.94 MIL/MM3 (4.00-5.30); RED CELL DISTRIBUTION WIDTH 13.4 % (11.6-17.2); REVIEW FLAG FINAL; WHITE BLOOD COUNT 7.9 TH/MM3 (4.0-11.0)
[2016-09-19 09:33] LABS: ALKALINE PHOSPHATASE 109 U/L (45-117); ALT (GPT) 29 U/L (10-53); ANION GAP 7 MEQ/L (5-15); AST (GOT) 21 U/L (15-37); BICARBONATE 25.9 MEQ/L (21.0-32.0); BLOOD UREA NITROGEN 16 MG/DL (7-18); CHLORIDE 109 MEQ/L (98-107); GLOMERULAR FILTRATION RATE 108 ML/MIN (>89); GLUCOSE,FASTING 96 MG/DL (74-99); HDL CHOLESTEROL 59.5 MG/DL (40.0-60.0); SODIUM (NA) 142 MEQ/L (136-145); TOTAL BILIRUBIN ADULT 0.4 MG/DL (0.2-1.0)
[2016-09-19 10:06] LABS: LDL CHOLESTEROL 116 MG/DL (0-99)
[2016-09-19 16:54] LABS: HEMOGLOBIN A1a 1.1 %; HEMOGLOBIN A1b 1.5 %; HEMOGLOBIN Ao 85.6 %; HEMOGLOBIN LA1C 1.9 %; HEMOGLOBIN P3 3.7 %
== END ==
LOC: CLAB 07:18
PROVIDERS: ATTEND Nurse Practitioner Family
DX: R73.01 Impaired fasting glucose (principal); E78.5 Hyperlipidemia, unspecified; R53.83 Other fatigue
CPT/HCPCS: 36415; 80053; 80061; 83036; 84443; 85027

== ENCOUNTER → 2016-10-27 | Outpatient (CLI) | payer OTHER ==
[~2016-10-27] MED LIST changes: -GARL500T PO; -VITA500T PO
--- NOTE | 2016-10-27 14:50 | RADRPT ---
EXAM DATE/TIME: 10/27/2016 13:57 [facility] COMPARISON: US CAROTID ARTERIES, May 08, 2016, 8:19. INDICATIONS : Stenosis. MEDICAL HISTORY : Cardiac disorders. Stroke. SURGICAL HISTORY : Tonsillectomy. Tubal ligation. Carotid endarterectomy. ENCOUNTER: Initial ACUITY: 1 day PAIN SCORE: 0/10 LOCATION: Bilateral neck PEAK SYSTOLIC VELOCITIES (cm/sec): ICA/CCA RATIO: Right: 1.3 Left: 1.5 ICA: Right: 94.0 Left: 101.1 CCA: Right: 71.5 Left: 67.0 ECA: Right: 60.6 Left: 76.5 VERTEBRAL: Right: 42.4 antegrade Left: 64.2 antegrade Elevated flow velocities and ICA/CCA ratios have been found to correlate with increased degrees of vessel stenosis, calculated as percentage of diameter relative to a normal segment of distal ICA/CCA FINDINGS: RIGHT CAROTID: Mild atherosclerotic changes are noted at the bifurcation. No significant stenosis is visualized. Th e waveforms are within normal limits. LEFT CAROTID: Mild atherosclerotic changes are noted at the bifurcation. No significant stenosis is visualized. Th e waveforms are within normal limits. VERTEBRAL ARTERIES: Antegrade flow is seen in both vertebral arteries. MISCELLANEOUS: None. CONCLUSION: Mild atherosclerotic changes are noted bilaterally. No focal high grade or hemodynamically significan t stenosis. Rakan Liao MD on October 27, 2016 at 14:47 Board Certified Radiologist. This report was verified electronically.
== END ==
LOC: HRAD 13:42
PROVIDERS: ATTEND Family Medicine
DX: Z09 Encounter for follow-up examination after completed treatment for conditions other than malignant neoplasm (principal); Z86.73 Personal history of transient ischemic attack (TIA), and cerebral infarction without residual deficits; Z98.890 Other specified postprocedural states
CPT/HCPCS: 93880

== ENCOUNTER → 2016-12-20 | Outpatient (CLI) | payer OTHER | LOC: CLAB 07:26 | PROVIDERS: ATTEND Family Medicine | DX: E78.5 Hyperlipidemia, unspecified (principal) | CPT/HCPCS: 36415; 80061 ==